=== PATIENT | female | born 1985 | race Two or more races ===

== ENCOUNTER 2016-07-26 02:02 | Emergency (ER) | payer MEDICAID, OTHER ==
[2016-07-26] MEDS ORDERED: Sodium Chloride 0.9% 1000 ML 1,000 ML IV STA ×2 (02:43→03:46)
[2016-07-26] MEDS ORDERED: PROTONIX 40 MG IV IV ONE ×2 (02:45→02:52)
[2016-07-26] MEDS ORDERED: Zofran 4 MG/2 ML VIAL IV ONE (02:45)
[2016-07-26 02:49] LABS: Mean Cell Volume 84.2 fl (78-100); Mean Corpuscular Hemoglobin 27.1 pg (26-32); Mean Platelet Volume 13.1 fl (6-9.5); Platelet Count 308 K/mm3 (150-450); Red Blood Count 4.68 M/mm3 (4.1-5.4); Red Cell Distribution Width 14.7 % (11.5-14.0); White Blood Count 13.4 K/mm3 (4.0-10.5)
--- NOTE | 2016-07-26 02:50 | ERPHSYRPT ---
- History of Present Illness Time Seen by Provider: 07/26/16 02:35 Historian: patient Exam Limitations: clinical condition Patient Subjective Stated Complaint: PT STS DIARRHEA X "AT LEAST A DOZEN" TODAY , STS TOOK 3 IMMODIUM WHICH STOPPED THE DIARRHEA. STS SHE THEN STARTED VOMITING , STS VOMITED X 3 TODAY. STS PAIN IN EPIGASTRIC AREA 3/10. DESCRIBES SQUEEZING PAIN. STS LAST FLUIDS 20 MIN [facility]PITAL [facility], LAST FOOD AT 1900. PT STS STILL FEELS NAUSEATED. Triage Nursing Assessment: PT ALERT, ORIENTED, ANSWERS ALL QUESTIONS APPROPRIATELY. SKIN P/W/D, RESPS NON-LABORED. PT AMBULATORY TO TX ROOM, STEADY GAIT NOTED. MUCOUS MEMBRANES MOIST. BOWEL SOUNDS PRESENT X 4 QUADRANTS. EPIGASTRIC TENDERNESS NOTED UPON PALPATION. ABD SOFT X 4 QUADRANTS. Physician History: PATIENT COMPLAINS OF FREQUENT EPISODES OF EMESIS X 4 AND WATERY DIARRHEA X 12 EPISODES THE PAST 24 HOURS ASSOCIATED WITH EPIGASTRIC PAIN. DENIES FEVER, URINARY SYMPTOMS. Timing/Duration: today Activities at Onset: none Quality: cramping Abdominal Pain Onset Location: epigastric Pain Radiation: no radiation Severity of Pain-Max: none Severity of Pain-Current: none Modifying Factors: Improves With: vomiting, other (DIARRHEA) Associated Symptoms: diarrhea, nausea, vomiting Previous symptoms: no prior history Allergies/Adverse Reactions: No Known Drug Allergies Allergy (Unverified 07/26/16 02:08) Hx Tetanus, Diphtheria Vaccination/Date Given: (UNKNOWN) Hx Influenza Vaccination/Date Given: No Hx Pneumococcal Vaccination/Date Given: No - Review of Systems Constitutional: No Fever, No Chills Eyes: No Symptoms Ears, Nose, & Throat: No Symptoms Respiratory: No Symptoms, No Cough, No Dyspnea Cardiac: No Symptoms, No Chest Pain, No Edema, No Syncope Abdominal/Gastrointestinal: Abdominal Pain, Nausea, Vomiting, Diarrhea Genitourinary Symptoms: No Symptoms, No Dysuria Musculoskeletal: No Symptoms, No Back Pain, No Neck Pain Skin: No Symptoms, No Rash Neurological: No Dizziness, No Focal Weakness, No Sensory Changes Psychological: No Symptoms Endocrine: No Symptoms All Other Systems: Reviewed and Negative - Past Medical History Pertinent Past Medical History: No - Past Surgical History Past Surgical History: Yes Gastrointestinal: Cholecystectomy - Social History Smoking Status: Former smoker Exposure to second hand smoke: No Drug Use: none Patient Lives Alone: No - Female History Hx Last Menstrual Period: 1 MONTH - Nursing Vital Signs Nursing Vital Signs: Initial Vital Signs Temperature 97.6 F Temperature Source Oral Pulse Rate 92 Respiratory Rate 14 Blood Pressure [Right Arm] 100/51 Pain Intensity 3 - Physical Exam General Appearance: no apparent distress, alert Eye Exam: PERRL/EOMI, eyes nml inspection Ears, Nose, Throat Exam: normal ENT inspection, pharynx normal, moist mucous membranes Neck Exam: normal inspection, non-tender, supple, full range of motion Respiratory Exam: normal breath sounds, lungs clear, No respiratory distress Cardiovascular Exam: regular rate/rhythm, normal heart sounds Gastrointestinal/Abdomen Exam: soft, normal bowel sounds, No tenderness, No mass Back Exam: normal inspection, normal range of motion, No CVA tenderness, No vertebral tenderness Extremity Exam: normal inspection, normal range of motion, pelvis stable Neurologic Exam: alert, oriented x 3, cooperative, normal mood/affect, nml cerebellar function, sensation nml, No motor deficits Skin Exam: normal color, warm, dry SpO2 Interpretation: normal SpO2: 98 Oxygen Delivery: Room Air Ordered Tests: Active Orders 24 hr Category Date Time Status AMYLASE Stat Lab 07/26/16 02:15 Completed BMP Stat Lab 07/26/16 02:15 Completed CBC W DIFF Stat Lab 07/26/16 02:15 Completed HCG,QUALITATIVE URINE Stat Lab 07/26/16 03:00 Completed LIPASE Stat Lab 07/26/16 02:15 Completed Manual Differential NC Stat Lab 07/26/16 02:15 Completed UA W/ MICROSCOPIC Stat Lab 07/26/16 03:00 Completed Medication Summary Discontinued Medications Generic Name Dose Route Start Last Admin Trade Name Tyreeq PRN Reason Stop Dose Admin Sodium Chloride 1,000 mls @ 999 mls/hr 07/26/16 02:43 07/26/16 02:56 Sodium Chloride 0.9% 1000 Ml IV 07/26/16 03:43 999 mls/hr .Q1H1M STA Administration Sodium Chloride Confirm 07/26/16 02:52 Sodium Chloride 0.9% 1000 Ml Administered 07/26/16 02:53 Dose 1,000 mls @ ud .ROUTE .STK-MED ONE Ceftriaxone Sodium/Dextrose 50 mls @ 100 mls/hr 07/26/16 03:46 07/26/16 03:53 Rocephin 1 Gm-D5w 50 Ml Bag IV 07/26/16 04:15 100 mls/hr STAT ONE Administration Sodium Chloride 1,000 mls @ 999 mls/hr 07/26/16 03:46 07/26/16 03:52 Sodium Chloride 0.9% 1000 Ml IV 07/26/16 04:46 999 mls/hr .Q1H1M STA Administration Sodium Chloride Confirm 07/26/16 03:51 Sodium Chloride 0.9% 1000 Ml Administered 07/26/16 03:52 Dose 1,000 mls @ ud .ROUTE .STK-MED ONE Ceftriaxone Sodium/Dextrose Confirm 07/26/16 03:51 Rocephin 1 Gm-D5w 50 Ml Bag Administered 07/26/16 03:52 Dose 50 mls @ ud IV .STK-MED ONE Ondansetron HCl 4 mg 07/26/16 02:45 07/26/16 02:55 Zofran 4 Mg/2 Ml Vial IV 07/26/16 02:46 4 mg STAT ONE Administration Ondansetron HCl Confirm 07/26/16 02:52 Zofran 4 Mg/2 Ml Vial Administered 07/26/16 02:53 Dose 4 mg .ROUTE .STK-MED ONE Pantoprazole Sodium 40 mg 07/26/16 02:45 07/26/16 02:55 Protonix 40 Mg Iv IV 07/26/16 02:46 40 mg STAT ONE Administration Pantoprazole Sodium Confirm 07/26/16 02:52 Protonix 40 Mg Iv Administered 07/26/16 02:53 Dose 40 mg IV .STK-MED ONE Lab/Rad Data: Laboratory Result Diagrams 07/26/16 02:15 07/26/16 02:15 Laboratory Results 07/26/16 07/26/16 07/26/16 Range/Units 03:00 03:00 02:15 WBC (4.0-10.5) K/mm3 RBC (4.1-5.4) M/mm3 Hgb (12.0-16.0) gm/dl Hct (35-47) % MCV (78-100) fl MCH (26-32) pg MCHC (32-36) g/dl RDW (11.5-14.0) % Plt Count (150-450) K/mm3 MPV (6-9.5) fl Segmented Neutrophils (36.0-66.0) % Lymphocytes (Manual) (24-44) % Monocytes (Manual) (0.0-12.0) % Differential Comment Platelet Estimate (NORMAL) Sodium 138 (136-145) mEq/L Potassium 4.1 (3.5-5.1) mEq/L Chloride 102 (98-107) mEq/L Carbon Dioxide 23.5 (21-32) mEq/L Anion Gap 16.2 H (5-15) MEQ/L BUN 14 (9-20) mg/dL Creatinine 0.89 (0.55-1.30) mg/dl Estimated GFR > 60 ML/MIN Glucose 133 H (70-110) MG/DL Calcium 8.6 (8.5-10.1) mg/dL Amylase 45 (25-115) U/L Lipase 164 (73-393) U/L Ur Collection Type CLEAN CATCH Urine Color EUSEBIO (YELLOW) Urine Appearance SLIGHTLY CLOUDY (CLEAR) Urine pH 8.5 (5-6) Ur Specific [place] 105 (1.005-1.025) Urine Protein 30 (Negative) Urine Glucose (UA) NEGATIVE (NEGATIVE) mg/dL Urine Ketones NEGATIVE (NEGATIVE) Urine Nitrite NEGATIVE (NEGATIVE) Urine Bilirubin NEGATIVE (NEGATIVE) Urine Urobilinogen 1 (0-1) mg/dL Urine WBC (Auto) MODERATE (NEGATIVE) Urine RBC (Auto) NEGATIVE (0-5) Xiang/ul Urine Microscopic WBC 5-10 (0-5) /HPF Ur Epithelial Cells FEW (FEW) /HPF Urine Bacteria FEW (NEGATIVE) /HPF Urine HCG, Qual NEGATIVE (Negative) Specimen Received 07/26/16:0300 07/26/16 Range/Units 02:15 WBC 13.4 H (4.0-10.5) K/mm3 RBC 4.68 (4.1-5.4) M/mm3 Hgb 12.7 (12.0-16.0) gm/dl Hct 39.4 (35-47) % MCV 84.2 (78-100) fl MCH 27.1 (26-32) pg MCHC 32.2 (32-36) g/dl RDW 14.7 H (11.5-14.0) % Plt Count 308 (150-450) K/mm3 MPV 13.1 H (6-9.5) fl Segmented Neutrophils 91 H (36.0-66.0) % Lymphocytes (Manual) 5 L (24-44) % Monocytes (Manual) 4 (0.0-12.0) % Differential Comment NORMAL Platelet Estimate NORMAL (NORMAL) Sodium (136-145) mEq/L Potassium (3.5-5.1) mEq/L Chloride (98-107) mEq/L Carbon Dioxide (21-32) mEq/L Anion Gap (5-15) MEQ/L BUN (9-20) mg/dL Creatinine (0.55-1.30) mg/dl Estimated GFR ML/MIN Glucose (70-110) MG/DL Calcium (8.5-10.1) mg/dL Amylase (25-115) U/L Lipase (73-393) U/L Ur Collection Type Urine Color (YELLOW) Urine Appearance (CLEAR) Urine pH (5-6) Ur Specific [place] (1.005-1.025) Urine Protein (Negative) Urine Glucose (UA) (NEGATIVE) mg/dL Urine Ketones (NEGATIVE) Urine Nitrite (NEGATIVE) Urine Bilirubin (NEGATIVE) Urine Urobilinogen (0-1) mg/dL Urine WBC (Auto) (NEGATIVE) Urine RBC (Auto) (0-5) Xiang/ul Urine Microscopic WBC (0-5) /HPF Ur Epithelial Cells (FEW) /HPF Urine Bacteria (NEGATIVE) /HPF Urine HCG, Qual (Negative) Specimen Received - Progress Progress: improved Progress Note: 07/26/16 02:48 PATIENT HYDRATED 2 LITERS OVER 2 HOURS. ZOFRAN 4MG, PROTONIX 40MG IV Counseled pt/family regarding: lab results, diagnosis, need for follow-up - Departure Time of Disposition: 05:10 Departure Disposition: Home Clinical Impression: ACUTE GASTROENTERITIS, URINARY TRACT INFECTION Condition: Stable Critical Care Time: No Referrals: FAN VAUGHAN [Primary Care Provider] - Additional Instructions: BEGIN CLEAR LIQUID DIET FOR 24 HOURS THEN ADVANCE DIET TOLERATED. ZOFRAN 4MG EVERY 4 HOURS FOR NAUSEA NEEDED. PEPCID 20MG TWICE DAILY FOR EPIGASTRIC PAIN FOR DURATION 2 WEEKS. ANTIBIOTIC BACTRIM DS TWICE DAILY FOR 10 DAYS. CONSULT YOUR FAMILY PHYSICIAN FOR EVALUATION IN 1 WEEK. Prescriptions: Ondansetron [Zofran Odt] 4 mg PO Q4HPRN PRN #6 tab.rapdis PRN Reason: Nausea Famotidine 20 mg [Pepcid 20 MG] 20 mg PO BID #30 tablet Sulfamethoxazole/Trimethoprim [Bactrim Ds Tablet] 1 each PO BID #20 tablet
[2016-07-26] MEDS ORDERED: Zofran 4 MG/2 ML VIAL ONE (02:52)
[2016-07-26] MEDS ORDERED: Sodium Chloride 0.9% 1000 ML 1,000 ML ONE ×2 (02:52→03:51)
[2016-07-26 02:54] LABS: ANION GAP 16.2 MEQ/L (5-15); BLOOD UREA NITROGEN 14 mg/dL (9-20); CHLORIDE 102 mEq/L (98-107); Carbon Dioxide 23.5 mEq/L (21-32); Glucose 133 MG/DL (70-110); LIPASE 164 U/L (73-393); Potassium 4.1 mEq/L (3.5-5.1); SODIUM 138 mEq/L (136-145)
[2016-07-26 03:13] LABS: Bacteria FEW /HPF (NEGATIVE); COMPLETE URINE MICROSCOPIC? YES; Collection Type CLEAN CATCH; Epithelial Cells FEW /HPF (FEW); Ph 8.5 (5-6)
[2016-07-26 03:39] LABS: Platelet Estimate NORMAL (NORMAL); Total Cells Counted 100
[2016-07-26] MEDS ORDERED: ROCEPHIN 1 Gm-D5w 50 ml Bag** 50 ML IV ONE ×2 (03:46→03:51)
[2016-07-26 04:52] VITALS: BP 98/53; PULSE 93
[2016-07-26 04:53] VITALS: O2SAT 98
== END 2016-07-26 05:10 | disposition home or self-care (01) ==
LOC: ED 02:02
DX: K52.9 Noninfective gastroenteritis and colitis, unspecified (principal); N39.0 Urinary tract infection, site not specified; R11.10 Vomiting, unspecified
CPT/HCPCS: 36000; 36415; 80048; 81000; 82150; 83690; 84703; 85025; 96360; 96361; 99283; J0696; J2405

== ENCOUNTER 2016-11-27 13:56 | Emergency (ER) | payer OTHER ==
[2016-11-27 14:05] VITALS: O2SAT 100
[2016-11-27] MEDS ORDERED: Sodium Chloride 0.9% 1000 ML 1,000 ML IV STA (14:10)
[2016-11-27] MEDS ORDERED: Sodium Chloride 0.9% 1000 ML 1,000 ML ONE (14:14)
[2016-11-27 14:42] LABS: BASOPHIL % 0.5 % (0.0-0.4); Lymphocytes % 27.2 % (24.0-44.0); Mean Cell Volume 86.5 fl (78-100); Mean Corpuscular Hemoglobin 27.7 pg (26-32); Mean Platelet Volume 12.2 fl (6-9.5); Monocytes % 7.3 % (0.0-12.0); Platelet Count 285 K/mm3 (150-450); Red Blood Count 4.44 M/mm3 (4.1-5.4); Red Cell Distribution Width 14.9 % (11.5-14.0)
[2016-11-27 14:59] LABS: INR 1.11 (0.8-3.0); PROTIME 12.4 SECONDS (9.95-12.35)
[2016-11-27] MEDS ORDERED: Zofran 4 MG/2 ML VIAL IV ONE (15:00)
[2016-11-27] MEDS ORDERED: PROTONIX 40 MG IV IV ONE ×2 (15:00→15:07)
[2016-11-27] MEDS ORDERED: GI COCKTAIL 60ML (Belladonn/Phenobarb/Lidoc PO ONE (15:00)
[2016-11-27 15:02] LABS: ANION GAP 12.9 MEQ/L (5-15); BLOOD UREA NITROGEN 12 mg/dL (9-20); CHLORIDE 107 mEq/L (98-107); Carbon Dioxide 25.2 mEq/L (21-32); Glucose 105 MG/DL (70-110); Potassium 3.6 mEq/L (3.5-5.1); SODIUM 142 mEq/L (136-145)
[2016-11-27] MEDS ORDERED: Zofran 4 MG/2 ML VIAL ONE (15:07)
[2016-11-27] MEDS ORDERED: XYLOCAINE HCl Viscous ONE (15:07)
--- NOTE | 2016-11-27 15:07 | ERPHSYRPT ---
- History of Present Illness Time Seen by Provider: 11/27/16 14:10 Patient Subjective Stated Complaint: cp since 0830 Triage Nursing Assessment: states mid sternal cp since 0830 while getting ready for work this morning. nausea and sob then. on arrival, denies n/v/d. no sob or diaphoresis. c/o mid cp nonradiating. states this morning had rt shoulder and neck pain. c/o pain with deep breath Physician History: PATIENT COMPLAINS OF NAUSEA, LOWER CHEST PAIN SINCE 9AM TODAY. HAS ASSOCIATED DIARRHEA X 2 EPISODES. DENIES FEVER,COUGH, DYSPNEA, ABDOMINAL OR FLANK PAIN. Timing/Duration: today Activities at Onset: none Quality: sharpness Abdominal Pain Onset Location: other (STERNAL AND EPIGASTRIC) Pain Radiation: no radiation Severity of Pain-Max: mild Severity of Pain-Current: none Modifying Factors: Improves With: other (DIARRHEA) Associated Symptoms: diarrhea, nausea Previous symptoms: no prior history Allergies/Adverse Reactions: No Known Drug Allergies Allergy (Unverified 11/27/16 14:05) Home Medications: Buspirone HCl [Buspar] 7.5 mg PO BID 11/27/16 [History] Hx Tetanus, Diphtheria Vaccination/Date Given: Yes Hx Influenza Vaccination/Date Given: No Hx Pneumococcal Vaccination/Date Given: No Immunizations Up to Date: Yes - Review of Systems Constitutional: No Fever, No Chills Eyes: No Symptoms Ears, Nose, & Throat: No Symptoms Respiratory: No Cough, No Dyspnea Cardiac: No Chest Pain, No Edema, No Syncope Abdominal/Gastrointestinal: No Abdominal Pain, No Nausea, No Vomiting, No Diarrhea Genitourinary Symptoms: No Symptoms, No Dysuria Musculoskeletal: No Symptoms, No Back Pain, No Neck Pain Skin: No Symptoms, No Rash Neurological: No Dizziness, No Focal Weakness, No Sensory Changes Psychological: No Symptoms Endocrine: No Symptoms All Other Systems: Reviewed and Negative - Past Medical History Pertinent Past Medical History: No - Past Surgical History Past Surgical History: Yes Gastrointestinal: Cholecystectomy - Social History Smoking Status: Current every day smoker Exposure to second hand smoke: No Drug Use: none Patient Lives Alone: No - Female History Hx Last Menstrual Period: 1 week - Nursing Vital Signs Nursing Vital Signs: Initial Vital Signs Temperature 98 F Temperature Source Oral Pulse Rate [] 96 Pulse Rate 83 Respiratory Rate 18 Blood Pressure [] 116/68 Pain Intensity 4 - Physical Exam General Appearance: no apparent distress, alert Eye Exam: PERRL/EOMI, eyes nml inspection Ears, Nose, Throat Exam: normal ENT inspection, pharynx normal, moist mucous membranes Neck Exam: normal inspection, non-tender, supple, full range of motion Respiratory Exam: normal breath sounds, chest tenderness (PERISTERNAL TENDERNESS T-5 TO T-6), lungs clear, No respiratory distress Cardiovascular Exam: regular rate/rhythm, normal heart sounds Gastrointestinal/Abdomen Exam: soft, normal bowel sounds, No tenderness ( MINIMAL SUPERIOR EPIGASTRIC TENDERNESS ADJACENT TO XYPHOID PROCESS), No mass Back Exam: normal inspection, normal range of motion, No CVA tenderness, No vertebral tenderness Extremity Exam: normal inspection, normal range of motion, pelvis stable Neurologic Exam: alert, oriented x 3, cooperative, normal mood/affect, nml cerebellar function, sensation nml, No motor deficits Skin Exam: normal color, warm, dry SpO2 Interpretation: normal SpO2: 100 Oxygen Delivery: Room Air - Course Nursing assessment & vital signs reviewed: Yes EKG Interpreted by Me: RATE, Sinus Rhythm - Radiology Exams Chest X-ray Interpretation: Interpreted by me, Negative Ordered Tests: Active Orders 24 hr Category Date Time Status EKG-ER Only STAT Care 11/27/16 14:10 Active Oxygen-ED Only NASAL CANNULA 2 lpm Care 11/27/16 14:10 Active CHEST 1 VIEW (PORTABLE) Stat Exams 11/27/16 14:10 Taken AMYLASE Stat Lab 11/27/16 15:00 Completed BMP Stat Lab 11/27/16 14:35 Completed CBC W DIFF Stat Lab 11/27/16 14:35 Completed D-DIMER QUANTITATION Stat Lab 11/27/16 14:35 Completed HCG,QUALITATIVE URINE Stat Lab 11/27/16 14:35 Completed LIPASE Stat Lab 11/27/16 15:00 Completed PROTIME WITH INR Stat Lab 11/27/16 14:35 Completed TROPONIN Q3H Lab 11/27/16 14:40 Completed TROPONIN Q3H Lab 11/27/16 17:15 Ordered TROPONIN Q3H Lab 11/27/16 20:15 Ordered TROPONIN Q3H Lab 11/27/16 23:15 Ordered TROPONIN Q3H Lab 11/28/16 02:15 Ordered Urine Triage Profile Stat Lab 11/27/16 14:35 Completed Medication Summary Discontinued Medications Generic Name Dose Route Start Last Admin Trade Name Freq PRN Reason Stop Dose Admin Al Hydrox/Mg Hydrox/Simethicone Confirm 11/27/16 15:08 Maalox Es 30 Ml Unit Dose Administered 11/27/16 15:09 Dose 30 ml .ROUTE .STK-MED ONE Belladonna Alkaloids/Phenobarbital 60 ml 11/27/16 15:00 11/27/16 15:12 Gi Cocktail 60ml (Belladonn/Phenobarb/Lidoc* PO 11/27/16 15:01 60 ml STAT ONE Administration Belladonna Alkaloids/Phenobarbital Confirm 11/27/16 15:08 Donnatol Liquid Administered 11/27/16 15:09 Dose 64.8 mg .ROUTE .STK-MED ONE Sodium Chloride 1,000 mls @ 999 mls/hr 11/27/16 14:10 11/27/16 14:15 Sodium Chloride 0.9% 1000 Ml IV 11/27/16 15:10 999 mls/hr .Q1H1M STA Administration Sodium Chloride Confirm 11/27/16 14:14 Sodium Chloride 0.9% 1000 Ml Administered 11/27/16 14:15 Dose 1,000 mls @ ud .ROUTE .STK-MED ONE Lidocaine HCl Confirm 11/27/16 15:07 Xylocaine Hcl Viscous * Administered 11/27/16 15:08 Dose 20 ml .ROUTE .STK-MED ONE Ondansetron HCl 4 mg 11/27/16 15:00 11/27/16 15:12 Zofran 4 Mg/2 Ml Vial IV 11/27/16 15:01 4 mg STAT ONE Administration Ondansetron HCl Confirm 11/27/16 15:07 Zofran 4 Mg/2 Ml Vial Administered 11/27/16 15:08 Dose 4 mg .ROUTE .STK-MED ONE Pantoprazole Sodium 40 mg 11/27/16 15:00 11/27/16 15:12 Protonix 40 Mg Iv IV 11/27/16 15:01 40 mg STAT ONE Administration Pantoprazole Sodium Confirm 11/27/16 15:07 Protonix 40 Mg Iv Administered 11/27/16 15:08 Dose 40 mg IV .STK-MED ONE Lab/Rad Data: Laboratory Result Diagrams 11/27/16 14:35 11/27/16 14:35 Laboratory Results 11/27/16 11/27/1611/27/17 Range/Units 15:00 14:40 14:35 WBC (4.0-10.5) K/mm3 RBC (4.1-5.4) M/mm3 Hgb (12.0-16.0) gm/dl Hct (35-47) % MCV (78-100) fl MCH (26-32) pg MCHC (32-36) g/dl RDW (11.5-14.0) % Plt Count (150-450) K/mm3 MPV (6-9.5) fl Gran % (36.0-66.0) % Lymphocytes % (24.0-44.0) % Monocytes % (0.0-12.0) % Eosinophils % (0.00-5.0) % Basophils % (0.0-0.4) % Basophils # (0-0.4) INR (0.8-3.0) D-Dimer (0.00-500.00) ng/mL Sodium (136-145) mEq/L Potassium (3.5-5.1) mEq/L Chloride (98-107) mEq/L Carbon Dioxide (21-32) mEq/L Anion Gap (5-15) MEQ/L BUN (9-20) mg/dL Creatinine (0.55-1.30) mg/dl Estimated GFR ML/MIN Glucose (70-110) MG/DL Calcium (8.5-10.1) mg/dL Troponin I < 0.017 (0.000-0.056) ng/ml Amylase 66 (25-115) U/L Lipase 285 (73-393) U/L Urine HCG, Qual NEGATIVE (Negative) Urine Opiates Level (NEGATIVE) Ur Methadone (NEGATIVE) Urine Barbiturates (NEGATIVE) Ur Phencyclidine (PCP) (NEGATIVE) Urine Amphetamine (NEGATIVE) U Benzodiazepine Level (NEGATIVE) Urine Cocaine (NEGATIVE) Urine Marijuana (THC) (NEGATIVE) 11/27/16 11/27/16 11/27/16 Range/Units 14:35 14:35 14:35 WBC 8.0 (4.0-10.5) K/mm3 RBC 4.44 (4.1-5.4) M/mm3 Hgb 12.3 (12.0-16.0) gm/dl Hct 38.4 (35-47) % MCV 86.5 (78-100) fl MCH 27.7 (26-32) pg MCHC 32.0 (32-36) g/dl RDW 14.9 H (11.5-14.0) % Plt Count 285 (150-450) K/mm3 MPV 12.2 H (6-9.5) fl Gran % 62.0 (36.0-66.0) % Lymphocytes % 27.2 (24.0-44.0) % Monocytes % 7.3 (0.0-12.0) % Eosinophils % 3.0 (0.00-5.0) % Basophils % 0.5 (0.0-0.4) % Basophils # 0.04 (0-0.4) INR 1.11 (0.8-3.0) D-Dimer 403.46 (0.00-500.00) ng/mL Sodium 142 (136-145) mEq/L Potassium 3.6 (3.5-5.1) mEq/L Chloride 107 (98-107) mEq/L Carbon Dioxide 25.2 (21-32) mEq/L Anion Gap 12.9 (5-15) MEQ/L BUN 12 (9-20) mg/dL Creatinine 0.91 (0.55-1.30) mg/dl Estimated GFR > 60 ML/MIN Glucose 105 (70-110) MG/DL Calcium 9.0 (8.5-10.1) mg/dL Troponin I (0.000-0.056) ng/ml Amylase (25-115) U/L Lipase (73-393) U/L Urine HCG, Qual (Negative) Urine Opiates Level (NEGATIVE) Ur Methadone (NEGATIVE) Urine Barbiturates (NEGATIVE) Ur Phencyclidine (PCP) (NEGATIVE) Urine Amphetamine (NEGATIVE) U Benzodiazepine Level (NEGATIVE) Urine Cocaine (NEGATIVE) Urine Marijuana (THC) (NEGATIVE) 11/27/16 Range/Units 14:35 WBC (4.0-10.5) K/mm3 RBC (4.1-5.4) M/mm3 Hgb (12.0-16.0) gm/dl Hct (35-47) % MCV (78-100) fl MCH (26-32) pg MCHC (32-36) g/dl RDW (11.5-14.0) % Plt Count (150-450) K/mm3 MPV (6-9.5) fl Gran % (36.0-66.0) % Lymphocytes % (24.0-44.0) % Monocytes % (0.0-12.0) % Eosinophils % (0.00-5.0) % Basophils % (0.0-0.4) % Basophils # (0-0.4) INR (0.8-3.0) D-Dimer (0.00-500.00) ng/mL Sodium (136-145) mEq/L Potassium (3.5-5.1) mEq/L Chloride (98-107) mEq/L Carbon Dioxide (21-32) mEq/L Anion Gap (5-15) MEQ/L BUN (9-20) mg/dL Creatinine (0.55-1.30) mg/dl Estimated GFR ML/MIN Glucose (70-110) MG/DL Calcium (8.5-10.1) mg/dL Troponin I (0.000-0.056) ng/ml Amylase (25-115) U/L Lipase (73-393) U/L Urine HCG, Qual (Negative) Urine Opiates Level NEG. (NEGATIVE) Ur Methadone NEG. (NEGATIVE) Urine Barbiturates NEG. (NEGATIVE) Ur Phencyclidine (PCP) NEG. (NEGATIVE) Urine Amphetamine NEG. (NEGATIVE) U Benzodiazepine Level NEG. (NEGATIVE) Urine Cocaine NEG. (NEGATIVE) Urine Marijuana (THC) NEG. (NEGATIVE) - Progress Progress: pain not gone completely Progress Note: 11/27/16 17:24 PATIENT ADMINISTERED IV NORMAL SALINE 1 LITER BOLUS, ZOFRAN 4MG, PROTONIX 40MG, TORADOL 30MG IV Counseled pt/family regarding: lab results, diagnosis, need for follow-up, rad results - Departure Time of Disposition: 17:25 Departure Disposition: Home Clinical Impression: ACUTE ABDOMINAL PAIN, ACUTE CHEST WALL PAIN Condition: Stable Critical Care Time: No Referrals: FAN VAUGHAN [Primary Care Provider] - Additional Instructions: TAKE OVER THE COUNTER IMODIUM EVERY 4 HOURS NEEDED FOR DIARRHEA FOR NO MORE THAN 48 HOURS. PEPCID 20MG TWICE DAILY FOR 30 DAYS. TORADOL 10MG EVERY 6 HOURS FOR PAIN NEEDED. CONSULT YOUR FAMILY PHYSICIAN FOR EVALUATION IN 1 WEEK. Prescriptions: Ketorolac Tromethamine [Toradol] 10 mg PO Q6H PRN PRN #20 tablet PRN Reason: Pain Famotidine 20 mg [Pepcid 20 MG] 20 mg PO BID #60 tablet
[2016-11-27] MEDS ORDERED: MAALOX ES 30 ML UNIT DOSE ONE (15:08)
[2016-11-27] MEDS ORDERED: Donnatol Liquid ONE (15:08)
[2016-11-27 15:14] LABS: LIPASE 285 U/L (73-393)
[2016-11-27 17:42] VITALS: BP 116/70; PULSE 76
--- NOTE | 2016-11-27 18:58 | XRAY ---
Indication: Chest pain. Comparison: None Portable chest demonstrates right middle lobe infiltrate versus atelectasis. Remaining heart, lungs, and bony thorax normal. Comment: Preliminary report by the ordering clinician does not report right middle lobe finding. I gave telephone report to Dr. Pitt in the ER at 1855 hrs. on November 27, 2016.
== END 2016-11-27 17:42 | disposition home or self-care (01) ==
LOC: ED 13:56
DX: R10.9 Unspecified abdominal pain (principal); R07.89 Other chest pain; R19.7 Diarrhea, unspecified; R11.0 Nausea
CPT/HCPCS: 36415; 71010; 80048; 80307; 82150; 83690; 84484; 84703; 85025; 85379; 85610; 93005; 96360; 96374; 96375; 99284; J2405; A9270-GY

== ENCOUNTER 2018-02-18 10:17 | Emergency (ER) | payer OTHER ==
[2018-02-18 10:39] VITALS: O2SAT 99
[2018-02-18] MEDS ORDERED: Cyclobenzaprine 10 MG PO ONE (10:58)
[2018-02-18] MEDS ORDERED: TORAdol 30 mg Injection IM ONE (10:58)
--- NOTE | 2018-02-18 11:10 | ERPHSYRPT ---
- History of Present Illness Time Seen by Provider: 02/18/18 10:45 Source: patient Exam Limitations: no limitations Patient Subjective Stated Complaint: Back Pain for 24 hours. Started as whole back. for the last 24 hours just the lower right back is hurting. Triage Nursing Assessment: pt presented alert and oriented X 3, skin pwd. PT ambulates with an upright steady gait, able to speak in clear full sentences. 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 Pt describes the pain as sharp, constant, 9/10, worse with movement and pt has not taken any pain meds. Pt denies any leg weakness or urinary/bowel incontinence. Timing/Duration: yesterday Method of Injury: unknown Quality: sharp Back Pain Location: lumbar spine Severity of Pain-Max: severe Severity of Pain-Current: severe Modifying Factors: Improves With: nothing Associated Symptoms: muscle spasms Previous symptoms: no prior history Allergies/Adverse Reactions: No Known Drug Allergies Allergy (Verified 02/18/18 10:35) Home Medications: Buspirone HCl [Buspar] 7.5 mg PO DAILY PRN PRN 11/27/16 [History] Hx Tetanus, Diphtheria Vaccination/Date Given: No Hx Influenza Vaccination/Date Given: No Hx Pneumococcal Vaccination/Date Given: No Immunizations Up to Date: Yes - Review of Systems Constitutional: No Fever, No Chills Eyes: No Symptoms Ears, Nose, & Throat: No Symptoms Respiratory: No Cough, No Dyspnea Cardiac: No Chest Pain, No Edema, No Syncope Abdominal/Gastrointestinal: No Abdominal Pain, No Nausea, No Vomiting, No Diarrhea Genitourinary Symptoms: No Dysuria Musculoskeletal: Back Pain, No Neck Pain Skin: No Rash Neurological: No Dizziness, No Focal Weakness, No Gait Changes, No Parasthesia, No Sensory Changes Psychological: No Symptoms Endocrine: No Symptoms All Other Systems: Reviewed and Negative - Past Medical History Pertinent Past Medical History: No - Past Surgical History Past Surgical History: Yes Gastrointestinal: Cholecystectomy - Social History Smoking Status: Current every day smoker How long have you smoked: 11 years Exposure to second hand smoke: Yes Drug Use: none Patient Lives Alone: Yes - Female History Hx Last Menstrual Period: 02/04/18 Hx Now: No - Nursing Vital Signs Nursing Vital Signs: Initial Vital Signs Temperature 98.2 F 02/18/18 10:23 Pulse Rate 101 H 02/18/18 10:23 Respiratory Rate 20 02/18/18 10:23 Blood Pressure 138/76 02/18/18 10:23 O2 Sat by Pulse Oximetry 99 02/18/18 10:23 Pain Scale Pain Intensity [Right Lower 7 Back] Pain Intensity 9 - Physical Exam General Appearance: no apparent distress, alert Eye Exam: PERRL/EOMI, eyes nml inspection Neck Exam: normal inspection, non-tender, supple, full range of motion, No meningismus, No midline tenderness Respiratory Exam: normal breath sounds, lungs clear, No respiratory distress Cardiovascular Exam: regular rate/rhythm, normal heart sounds Gastrointestinal Exam: soft, No tenderness, No mass Back Exam: decreased range of motion, muscle spasm Extremity Exam: normal inspection, normal range of motion, No calf tenderness, No pedal edema Neurologic Exam: alert, oriented x 3, cooperative, 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, normal mood/affect, nml station & gait, sensation nml, No motor deficits Skin Exam: normal color, warm, dry, No rash SpO2: 99 Oxygen Delivery: Room Air - Course Nursing assessment & vital signs reviewed: Yes Ordered Tests: Medication Summary Discontinued Medications Generic Name Dose Route Start Last Admin Trade Name Freq PRN Reason Stop Dose Admin Cyclobenzaprine HCl 10 mg 02/18/18 10:58 02/18/18 11:12 Cyclobenzaprine 10 Mg PO 02/18/18 10:59 10 mg STAT ONE Administration Cyclobenzaprine HCl Confirm 02/18/18 11:11 Cyclobenzaprine 10 Mg Administered 02/18/18 11:12 Dose 10 mg .ROUTE .STK-MED ONE Ketorolac Tromethamine 60 mg 02/18/18 10:58 02/18/18 11:13 Toradol 30 Mg Injection IM 02/18/18 10:59 60 mg STAT ONE Administration Ketorolac Tromethamine Confirm 02/18/18 11:11 Toradol 30 Mg Injection Administered 02/18/18 11:12 Dose 60 mg .ROUTE .STK-MED ONE - Progress Progress: improved Progress Note: 02/18/18 11:09 Pt will receive toradol and flexeril for back spasm. Pt will be d/c home on toradol and flexeril. - Departure Time of Disposition: 11:10 Departure Disposition: Home Clinical Impression: Back muscle spasm Condition: Stable Critical Care Time: No Referrals: DOCTOR,NO FAMILY [Primary Care Provider] - Instructions: Low Back Pain (DC) Additional Instructions: Return to the ER if you should have worsening back pain, leg weakness, or loss of control of urine and bowels. Prescriptions: Cyclobenzaprine HCl [Flexeril] 10 mg PO QID PRN #20 tablet PRN Reason: Muscle Spasms Ketorolac Tromethamine [Toradol] 10 mg PO QID PRN #20 tablet PRN Reason: Pain
[2018-02-18] MEDS ORDERED: Cyclobenzaprine 10 MG ONE (11:11)
[2018-02-18] MEDS ORDERED: TORAdol 30 mg Injection ONE (11:11)
[2018-02-18 11:19] VITALS: BP 133/77; PULSE 70
== END 2018-02-18 11:35 | disposition home or self-care (01) ==
LOC: ED 10:17
DX: M62.830 Muscle spasm of back (principal); M54.5 Low back pain
CPT/HCPCS: 96372; 99283; J1885; A9270-GY

== ENCOUNTER → 2021-07-02 | Emergency (ER) | payer OTHER ==
[~2021-07-02] MED LIST: MAALOX ES 30 ML UNIT DOSE ONE; MAALOX ES 30 ML UNIT DOSE PO ONE; MILK OF MAGNESIA 30 ML ONE; Protonix 40MG Tablet ONE; Protonix 40MG Tablet PO ONE; XYLOCAINE HCl Viscous ONE; XYLOCAINE VISCOUS 2% 20 ML CUP PO ONE; ZOFRAN ODT 4 MG ONE; ZOFRAN ODT 4 MG PO ONE
[2021-07-02 02:14] LABS: BLOOD UREA NITROGEN 12 mg/dL (7-17); CHLORIDE 102 mmol/L (98-107); Carbon Dioxide 26 mmol/L (22-30); Creatinine 1 0.69 mg/dL (0.52-1.04); EST GLOMERULAR FILTRATION RATE > 60.0 ML/MIN; Glucose 116 mg/dL (74-106); Potassium 3.9 mmol/L (3.5-5.1); SODIUM 137 mmol/L (137-145)
[2021-07-02 02:15] LABS: ALBUMIN 4.2 g/dL (3.5-5.0); ALKALINE PHOSPHATASE 70 U/L (38-126); AMYLASE 66 U/L (30-110); Calcium 9.3 mg/dL (8.4-10.2); LIPASE 79 U/L (23-300); SGOT/AST 19 U/L (14-36); SGPT/ALT 25 U/L (0-35); Total Protein 7.2 g/dL (6.3-8.2)
[2021-07-02 02:16] LABS: ANION GAP 12.9 MEQ/L (5-15); Absolute Neutrophil Ct (ANC) 9.05 (1.4-6.9); Basophil (Absolute #) 0.03 (0-0.4); Eosinophil % 2.5 % (0.00-5.0); Hematocrit 39.5 % (35-47); Hemoglobin 12.7 gm/dl (12.0-16.0); Lymphocyte (Absolute #) 2.19 (1.0-4.6); Lymphocytes % 17.9 % (24.0-44.0); Mean Cell Volume 90.6 fl (78-100); Mean Corpuscular Hemoglobin 29.1 pg (26-32); Mean Corpuscular Hgb Concent. 32.2 g/dl (32-36); Monocyte (Absolute #) 0.65 (0.0-1.3); Monocytes % 5.3 % (0.0-12.0); Neutrophil % 74.1 % (36.0-66.0); Platelet Count 320 K/mm3 (150-450); Red Blood Count 4.36 M/mm3 (4.1-5.4); Red Cell Distribution Width 14.2 % (11.5-14.0); White Blood Count 12.2 K/mm3 (4.0-10.5)
[2021-07-02 02:26] LABS: Appearance SLIGHTLY CLOUDY (CLEAR); Bilirubin NEGATIVE (NEGATIVE); Blood NEGATIVE Ery/ul (0-5); Epithelial Cells RARE /HPF (FEW); Glucose NEGATIVE (NEGATIVE); Ketones TRACE (NEGATIVE); Leukocyte Esterase TRACE (NEGATIVE); Mucus SLIGHT /HPF (NEGATIVE); Nitrite NEGATIVE (NEGATIVE); Protein,Urine Dip NEGATIVE (Negative); RBC 0-2 /HPF (0-2); Specific Gravity 1.026 (1.005-1.025); Urobilinogen NEGATIVE mg/dL (0-1); WBC 0-2 /HPF (0-5)
--- NOTE | 2021-07-02 09:10 | XRAY ---
Indication: Abdomen pain, nausea, vomiting, and diarrhea. History renal stones. Multiple contiguous axial images obtained through the abdomen and pelvis without contrast using renal stone protocol. Comparison: August 04, 2010. Lung bases demonstrates minimal subsegmental atelectasis/scarring. No infiltrate or effusion. Heart not enlarged. Left upper kidney demonstrates new nonobstructing punctate calculus. No other renal calculus or evidence for obstructive uropathy in either system. Noncontrasted stomach and bowel loops appear nonobstructed with normal appendix. 3.2 cm left ovary cyst. No free fluid/air. Fatty hepatomegaly measuring 21 cm. There has been interval cholecystectomy. Remaining liver, pancreas, spleen, adrenal glands, kidneys, ureters, bladder, uterus, and aorta are unremarkable for noncontrast exam. Osseous structures intact. No ventral or inguinal hernias. Impression: 1. New nonobstructing left renal punctate calculus. 2. 3.2 cm left ovary cyst better evaluated with pelvic sonogram if clinically warranted. 3. Incidental fatty hepatomegaly. Comment: Preliminary interpretation made by [facility]. No critical discrepancy.
== END ==
LOC: ED 01:15
DX: R10.84 Generalized abdominal pain (principal); R11.2 Nausea with vomiting, unspecified; R19.7 Diarrhea, unspecified; Z72.0 Tobacco use
CPT/HCPCS: 36415; 74176; 80053; 81001; 82150; 83690; 84703; 85025; 99283; Q0162; A9270-GY

== ENCOUNTER 2023-10-17 19:28 | Observation (INO) | payer OTHER ==
[2023-10-17] MEDS ORDERED: Sodium Chloride 0.9% 1000 ML 1,000 ML ONE (20:01)
--- NOTE | 2023-10-17 20:02 | ERPHSYRPT ---
- History of Present Illness Time Seen by Provider: 10/17/23 19:59 Physician History: 38-year-old female presents to our ED for evaluation of dizziness. Dizziness started at approximately 6 PM. Dizziness was constant. No trauma no fever. Not associated with head motion. No associated chest pain or shortness of breat h. Patient denies a history of dizziness. Patient voices no other complaints or concerns at this time. Portions of this note were created with voice recognition technology. There may be grammatical, spelling, punctuation or sound alike errors Timing/Duration: today Severity: moderate Modifying Factors: Improves With: nothing Associated Symptoms: denies symptoms Allergies/Adverse Reactions: paroxetine [From Paxil] Allergy (Verified 10/17/23 19:51) Home Medications: No Reportable Medications [No Reported Medications] 10/17/23 [History] Hx Tetanus, Diphtheria Vaccination/Date Given: No Hx Influenza Vaccination/Date Given: No Hx Pneumococcal Vaccination/Date Given: No - Review of Systems Constitutional: No Symptoms, No Fever, No Chills Eyes: No Symptoms Ears, Nose, & Throat: No Symptoms Respiratory: No Symptoms, No Cough, No Dyspnea Cardiac: No Symptoms, No Chest Pain, No Edema, No Syncope Abdominal/Gastrointestinal: No Symptoms, No Abdominal Pain, No Nausea, No Vomiting, No Diarrhea Genitourinary Symptoms: No Symptoms, No Dysuria Musculoskeletal: No Symptoms, No Back Pain, No Neck Pain Skin: No Symptoms, No Rash Neurological: No Symptoms, No Dizziness, No Focal Weakness, No Sensory Changes Psychological: No Symptoms Endocrine: No Symptoms Hematologic/Lymphatic: No Symptoms Immunological/Allergic: No Symptoms All Other Systems: Reviewed and Negative - Past Medical History Pertinent Past Medical History: No - Past Surgical History Past Surgical History: Yes Gastrointestinal: Cholecystectomy - Female History Hx Now: No - Social History Smoking Status: Current every day smoker How long have you smoked: 11 years Exposure to second hand smoke: Yes Drug Use: none Patient Lives Alone: Yes - Nursing Vital Signs Nursing Vital Signs: Initial Vital Signs Temperature 97.2 F 10/17/23 19:54 Pulse Rate 85 10/17/23 19:54 Respiratory Rate 18 10/17/23 19:54 Blood Pressure 128/97 10/17/23 19:54 O2 Sat by Pulse Oximetry 99 10/17/23 19:54 Pain Scale Pain Intensity 0 - Physical Exam General Appearance: no apparent distress, alert Eye Exam: PERRL/EOMI, eyes nml inspection Ears, Nose, Throat Exam: normal ENT inspection, TMs normal, pharynx normal, moist mucous membranes Neck Exam: normal inspection, non-tender, supple, full range of motion Respiratory Exam: normal breath sounds, lungs clear, airway intact, No respiratory distress Cardiovascular Exam: regular rate/rhythm, normal heart sounds, normal peripheral pulses Gastrointestinal/Abdomen Exam: soft, normal bowel sounds, No tenderness, No mass Back Exam: normal inspection, normal range of motion, No CVA tenderness, No vertebral tenderness Extremity Exam: normal inspection, normal range of motion, pelvis stable Neurologic Exam: alert, oriented x 3, cooperative, normal mood/affect, nml cerebellar function, nml station & gait, sensation nml, No motor deficits Skin Exam: normal color, warm, dry, No rash Lymphatic Exam: No adenopathy SpO2 Interpretation: normal SpO2: 98 O2 Delivery: Room Air - Course Nursing assessment & vital signs reviewed: Yes EKG Interpreted by Me: RATE (88), Sinus Rhythm, NORMAL AXIS, NORMAL INTERVALS - CT Exams Head CT Interpretation: Tele-radiologist Report (Normal head) Ordered Tests: Active Orders 24 hr Category Date Time Status Circular [place]yer Stone STAT Care 10/17/23 19:58 Active EKG-ER Only STAT Care 10/17/23 19:57 Active IV Insertion STAT Care 10/17/23 19:57 Active Pulse Oximetry (ED) STAT Care 10/17/23 19:57 Active HEAD WITHOUT CONTRAST [CT] Stat Exams 10/17/23 19:58 Taken CBC W DIFF Stat Lab 10/17/23 20:06 Completed CMP Stat Lab 10/17/23 20:06 Completed CULTURE,URINE Stat Lab 10/17/23 20:06 Received HCG QUALITATIVE, SERUM Stat Lab 10/17/23 20:06 Completed TROPONIN Q4H Lab 10/17/23 20:06 Completed UA W/RFX UR CULTURE Stat Lab 10/17/23 20:06 Completed Transfer Order Routine Transfer 10/18/23 Ordered Medication Summary Generic Name Dose Route Start Last Admin Trade Name Freq PRN Reason Stop Dose Admin Sodium Chloride 1,000 mls @ 100 mls/hr 10/17/23 20:00 10/17/23 20:04 Sodium Chloride 0.9% 1000 Ml IV 11/16/23 19:59 100 mls/hr .Q10H COLEEN Administration Lab/Rad Data: Laboratory Result Diagrams 10/17/23 20:06 10/17/23 20:06 Laboratory Results 10/17/23 10/17/23 10/17/23 Range/Units 20:06 20:06 20:06 WBC (4.0-10.5) x10^3/uL RBC (4.1-5.4) x10^6/uL Hgb (12.0-16.0) g/dL Hct (35-47) % MCV (78-100) fL MCH (26-32) pg MCHC (32-36) g/dL RDW (11.5-14.0) % Plt Count (150-450) x10^3/uL MPV (7.5-11.0) fL Gran % (36.0-66.0) % Immature Gran % (Auto) (0.00-0.4) % Nucleat RBC Rel Count (0.00-0.1) % Eos # (Auto) (0-0.5) x10^3/uL Immature Gran # (Auto) (0.00-0.03) x10^3u/L Absolute Lymphs (auto) (1.0-4.6) x10^3/uL Absolute Monos (auto) (0.0-1.3) x10^3/uL Absolute Nucleated RBC (0.00-0.01) x10^3u/L Lymphocytes % (24.0-44.0) % Monocytes % (0.0-12.0) % Eosinophils % (0.00-5.0) % Basophils % (0.0-0.4) % Absolute Granulocytes (1.4-6.9) x10^3/uL Basophils # (0-0.4) x10^3/uL Sodium 142 (135-145) mmol/L Potassium 4.1 (3.5-5.1) mmol/L Chloride 106 (98-107) mmol/L Carbon Dioxide 26 (22-30) mmol/L Anion Gap 13.9 (5-15) MEQ/L BUN 12 (7-17) mg/dL Creatinine 0.66 (0.52-1.04) mg/dL Estimated GFR 116.5 ML/MIN Glucose 95 (74-106) mg/dL Calcium 9.3 (8.4-10.2) mg/dL Total Bilirubin 0.60 (0.2-1.3) mg/dL AST 40 H (14-36) U/L ALT 42 H (0-35) U/L Alkaline Phosphatase 48 (38-126) U/L Troponin I < 0.012 (0.000-0.033) ng/mL Serum Total Protein 7.9 (6.3-8.2) g/dL Albumin 4.2 (3.5-5.0) g/dL Serum HCG, Qual NEGATIVE (NEGATIVE) Urine Color (Yellow) Urine Appearance (Clear) Urine pH (4.6-8.0) Ur Specific Dolores (1.005-1.030) Urine Protein (Negative) Urine Glucose (UA) (Negative) mg/dL Urine Ketones (Negative) Urine Blood (Negative) Urine Nitrite (Negative) Urine Bilirubin (Negative) Urine Urobilinogen (0.2) mg/dL Ur Leukocyte Esterase (Negative) U Hyaline Cast (Auto) (0-2) /LPF Urine Microscopic RBC (0-5) /HPF Urine Microscopic WBC (0-5) /HPF Ur Epithelial Cells (None Seen) /HPF Urine Bacteria (None Seen) /HPF Urine Culture Reflexed (NO) 10/17/23 10/17/23 Range/Units 20:06 20:06 WBC 13.5 H (4.0-10.5) x10^3/uL RBC 4.42 (4.1-5.4) x10^6/uL Hgb 12.6 (12.0-16.0) g/dL Hct 38.4 (35-47) % MCV 86.9 (78-100) fL MCH 28.5 (26-32) pg MCHC 32.8 (32-36) g/dL RDW 13.7 (11.5-14.0) % Plt Count 363 (150-450) x10^3/uL MPV 11.7 H (7.5-11.0) fL Gran % 66.0 (36.0-66.0) % Immature Gran % (Auto) 0.4 (0.00-0.4) % Nucleat RBC Rel Count 0.0 (0.00-0.1) % Eos # (Auto) 0.37 (0-0.5) x10^3/uL Immature Gran # (Auto) 0.05 H (0.00-0.03) x10^3u/L Absolute Lymphs (auto) 3.33 (1.0-4.6) x10^3/uL Absolute Monos (auto) 0.75 (0.0-1.3) x10^3/uL Absolute Nucleated RBC 0.00 (0.00-0.01) x10^3u/L Lymphocytes % 24.7 (24.0-44.0) % Monocytes % 5.6 (0.0-12.0) % Eosinophils % 2.7 (0.00-5.0) % Basophils % 0.6 (0.0-0.4) % Absolute Granulocytes 8.92 H (1.4-6.9) x10^3/uL Basophils # 0.08 (0-0.4) x10^3/uL Sodium (135-145) mmol/L Potassium (3.5-5.1) mmol/L Chloride (98-107) mmol/L Carbon Dioxide (22-30) mmol/L Anion Gap (5-15) MEQ/L BUN (7-17) mg/dL Creatinine (0.52-1.04) mg/dL Estimated GFR ML/MIN Glucose (74-106) mg/dL Calcium (8.4-10.2) mg/dL Total Bilirubin (0.2-1.3) mg/dL AST (14-36) U/L ALT (0-35) U/L Alkaline Phosphatase (38-126) U/L Troponin I (0.000-0.033) ng/mL Serum Total Protein (6.3-8.2) g/dL Albumin (3.5-5.0) g/dL Serum HCG, Qual (NEGATIVE) Urine Color Yellow (Yellow) Urine Appearance Cloudy A (Clear) Urine pH 7.5 (4.6-8.0) Ur Specific Dolores 1.010 (1.005-1.030) Urine Protein Negative (Negative) Urine Glucose (UA) Negative (Negative) mg/dL Urine Ketones Negative (Negative) Urine Blood Moderate A (Negative) Urine Nitrite Negative (Negative) Urine Bilirubin Negative (Negative) Urine Urobilinogen 0.2 (0.2) mg/dL Ur Leukocyte Esterase Small A (Negative) U Hyaline Cast (Auto) NONE SEEN (0-2) /LPF Urine Microscopic RBC 3-5 (0-5) /HPF Urine Microscopic WBC 6-10 A (0-5) /HPF Ur Epithelial Cells Rare (None Seen) /HPF Urine Bacteria None Seen (None Seen) /HPF Urine Culture Reflexed YES (NO) - Progress Progress: improved Progress Note: 38-year-old female presents the emergency department for evaluation of acute onset dizziness. Patient was sitting at home when symptoms started. Patient presented to our ED for an evaluation. Neurologic exam within normal limits. CT head unremarkable. Laboratory workup essentially unremarkable. UA suggestive of urinary tract infection. Rocephin ordered. Teleneurologist consulted. Teleneurologist feels that it is more than likely a inner ear cause however he cannot rule out posterior circulation TIA/stroke. We discussed the probabilities and the importance of ruling out a stroke. Patient agreed to hospitalization for further evaluation/MRI. Vital stable. Patient agrees to admission [facility] for further evaluation and treatment. I discussed the case with Dr. Watson at [address] Watson accepts admission. Aspirin administered 324 mg chewable Complex of problem addressed moderate acute complicated No critical care time Complexity of data reviewed and analyzed is extensive. Test ordered test reviewed results analyzed and correlated clinically with history and physical exam. Management discussed with teleneurologist as well as meeting hospitalist. Risk of complication and or risk of morbidity/mortality of patient management is high. Patient requires hospitalization for further evaluation and treatment. Vital stable. Time spent admit patient is approximately 30 minutes. Plan of care established for shared decision making. No social determinants of health present to impede follow-up. Portions of this note were created with voice recognition technology. There may be grammatical, spelling, punctuation or sound alike errors 10/18/23 01:05 Counseled pt/family regarding: lab results, diagnosis - Departure Departure Disposition: Observation Clinical Impression: Dizziness, Acute posterior circulation transient ischemic attack, UTI (urinary tract infection) Condition: Stable Critical Care Time: No Referrals: KATHLEEN RHODES [Primary Care Provider] - Follow up/PCP as directed
[2023-10-17] MEDS: Sodium Chloride 0.9% 1000 ML 1,000 ML IV SCH (20:04)
[2023-10-17 20:30] LABS: Absolute Neutrophil Ct (ANC) 8.92 x10^3/uL (1.4-6.9); BASOPHIL % 0.6 % (0.0-0.4); Basophil (Absolute #) 0.08 x10^3/uL (0-0.4); Eosinophil % 2.7 % (0.00-5.0); Eosinophil (Absolute #) 0.37 x10^3/uL (0-0.5); Hematocrit 38.4 % (35-47); Hemoglobin 12.6 g/dL (12.0-16.0); IMMATURE GRAN # 0.05 x10^3u/L (0.00-0.03); IMMATURE GRAN % 0.4 % (0.00-0.4); Lymphocyte (Absolute #) 3.33 x10^3/uL (1.0-4.6); Lymphocytes % 24.7 % (24.0-44.0); Mean Cell Volume 86.9 fL (78-100); Mean Corpuscular Hemoglobin 28.5 pg (26-32); Mean Corpuscular Hgb Concent. 32.8 g/dL (32-36); Mean Platelet Volume 11.7 fL (7.5-11.0); Monocyte (Absolute #) 0.75 x10^3/uL (0.0-1.3); Monocytes % 5.6 % (0.0-12.0); Platelet Count 363 x10^3/uL (150-450); Red Blood Count 4.42 x10^6/uL (4.1-5.4); Red Cell Distribution Width 13.7 % (11.5-14.0); White Blood Count 13.5 x10^3/uL (4.0-10.5)
[2023-10-17 20:40] LABS: ADD URINE CULTURE? YES (NO); Appearance Cloudy (Clear); Bacteria None Seen /HPF (None Seen); Bilirubin Negative (Negative); Blood Moderate (Negative); Epithelial Cells Rare /HPF (None Seen); Glucose, Urine Negative (Negative); Hyaline Casts NONE SEEN /LPF (0-2); Ketones Negative (Negative); Leukocyte Esterase Small (Negative); Nitrite Negative (Negative); Ph 7.5 (4.6-8.0); Protein,Urine Dip Negative (Negative); Urobilinogen 0.2 mg/dL (0.2)
[2023-10-17 20:42] LABS: HCG SERUM TEST NEGATIVE (NEGATIVE)
[2023-10-17 20:44] LABS: ALBUMIN 4.2 g/dL (3.5-5.0); ANION GAP 13.9 MEQ/L (5-15); BILIRUBIN,TOTAL 0.6 mg/dL (0.2-1.3); Calcium 9.3 mg/dL (8.4-10.2); Creatinine 1 0.66 mg/dL (0.52-1.04); EST GLOMERULAR FILTRATION RATE 116.5 ML/MIN; Potassium 4.1 mmol/L (3.5-5.1); Total Protein 7.9 g/dL (6.3-8.2)
--- NOTE | 2023-10-18 01:09 | PCM.HP ---
History of Present Illness - Chief Complaint Chief Complaint: dizziness Date: 10/17/23 History of Present Illness: Ms. JENKINS is a 38 year old female with no significant past medical history who presents to the hospital with complaints of dizziness that started this evening around 6 p.m. She was seen in the ER and evaluated by CT head, which was negative. She was seen by neurology who has recommended admission to receive MRI brain. She is resting in bed, awake/alert. No headache, changes in vision. No fever/chills. No chest pain or shortness of breath. No nausea, vomiting or diarrhea. No dysuria, hematuria or foamy/frothy urine. - Review of Systems Constitutional: No Fever, No Chills Eyes: No Vision Changes Ears, Nose, & Throat: No Ear Discharge, No Hoarse Respiratory: No Cough, No Orthopnea, No Short Of Breath Cardiac: No Chest Pain, No Edema, No Palpitations Abdominal/Gastrointestinal: No Abdominal Pain, No Nausea, No Vomiting, No Diarrhea Genitourinary Symptoms: No Dysuria, No Frequency, No Hematuria Musculoskeletal: No Arthralgias, No Back Pain Skin: No Rash Neurological: Dizziness, No Headache Psychological: No Suicidal Ideations Medications & Allergies Home Medications: Home Medication List No Reportable Medications [No Reported Medications] 10/17/23 [History Confirmed 10/17/23] Allergies/Adverse Reactions: Allergies Allergy/AdvReac Type Severity Reaction Status Date / Time paroxetine [From Paxil] Allergy Verified 10/17/23 19:51 - Past Medical History Past Medical History: No Neurological History: No Pertinent History ENT History: No Pertinent History Cardiac History: No Pertinent History Respiratory History: No Pertinent History Endocrine Medical History: No Pertinent History Musculoskelatal History: No Pertinent History GI Medical History: No Pertinent History History: No Pertinent History Pyscho-Social History: No Pertinent History Reproductive Disorders: No Pertinent History Comment: irregular periods - Female History Hx Last Menstrual Period: currently on Are you now?: No - Past Surgical History Past Surgical History: Yes Neuro Surgical History: No Pertinent History Cardiac History: No Pertinent History Respiratory Surgery: No Pertinent History GI Surgical History: Cholecystectomy Genitourinary Surgical Hx: No Pertinent History Musculskeletal Surgical Hx: No Pertinent History Female Surgical History: No Pertinent History - Social History Smoking Status: Current every day smoker How long have you smoked: 11 years Exposure to second hand smoke: Yes Alcohol: None Drug Use: none - Social Determinants of Health Will the patient participate in the screening: Yes Do you worry about a steady place to live?: No Do you have any problems with any of the following?: No known problems In the past 12 months,have you had to go without utilities?: No Have you or anyone in your house had to go without enough: No Transportation Issues: No Has anyone in your support network made you feel unsafe?: No - Physical Exam Vital Signs: Vital Signs - 24 hr Temp Pulse Resp BP BP Pulse Ox 10/18/23 00:00 92 H 18 108/72 98 10/17/23 23:59 98 10/17/23 23:30 93 H 18 107/65 97 10/17/23 23:00 82 16 96/65 99 10/17/23 22:30 80 18 105/69 98 10/17/23 22:00 84 17 112/72 98 10/17/23 21:30 86 18 115/83 98 10/17/23 21:00 89 18 115/93 99 10/17/23 20:30 91 H 26 H 114/79 97 10/17/23 20:13 98 10/17/23 20:00 79 21 130/87 98 10/17/23 19:54 97.2 F 85 18 128/97 99 General Appearance: no apparent distress Neurologic Exam: alert Ears, Nose, Throat Exam: dry mucous membranes Neck Exam: supple Respiratory Exam: No respiratory distress Cardiovascular Exam: regular rate/rhythm Gastrointestinal/Abdomen Exam: soft Skin Exam: normal color, No rash Results - Labs Lab/Micro Results: Lab Results-Last 24 Hours 10/17/23 10/17/23 10/17/23 Range/Units 20:06 20:06 20:06 WBC 13.5 H (4.0-10.5) x10^3/uL RBC 4.42 (4.1-5.4) x10^6/uL Hgb 12.6 (12.0-16.0) g/dL Hct 38.4 (35-47) % MCV 86.9 (78-100) fL MCH 28.5 (26-32) pg MCHC 32.8 (32-36) g/dL RDW 13.7 (11.5-14.0) % Plt Count 363 (150-450) x10^3/uL MPV 11.7 H (7.5-11.0) fL Gran % 66.0 (36.0-66.0) % Immature Gran % (Auto) 0.4 (0.00-0.4) % Nucleat RBC Rel Count 0.0 (0.00-0.1) % Eos # (Auto) 0.37 (0-0.5) x10^3/uL Immature Gran # (Auto) 0.05 H (0.00-0.03) x10^3u/L Absolute Lymphs (auto) 3.33 (1.0-4.6) x10^3/uL Absolute Monos (auto) 0.75 (0.0-1.3) x10^3/uL Absolute Nucleated RBC 0.00 (0.00-0.01) x10^3u/L Lymphocytes % 24.7 (24.0-44.0) % Monocytes % 5.6 (0.0-12.0) % Eosinophils % 2.7 (0.00-5.0) % Basophils % 0.6 (0.0-0.4) % Absolute Granulocytes 8.92 H (1.4-6.9) x10^3/uL Basophils # 0.08 (0-0.4) x10^3/uL Sodium 142 (135-145) mmol/L Potassium 4.1 (3.5-5.1) mmol/L Chloride 106 (98-107) mmol/L Carbon Dioxide 26 (22-30) mmol/L Anion Gap 13.9 (5-15) MEQ/L BUN 12 (7-17) mg/dL Creatinine 0.66 (0.52-1.04) mg/dL Estimated GFR 116.5 ML/MIN Glucose 95 (74-106) mg/dL Calcium 9.3 (8.4-10.2) mg/dL Total Bilirubin 0.60 (0.2-1.3) mg/dL AST 40 H (14-36) U/L ALT 42 H (0-35) U/L Alkaline Phosphatase 48 (38-126) U/L Troponin I (0.000-0.033) ng/mL Serum Total Protein 7.9 (6.3-8.2) g/dL Albumin 4.2 (3.5-5.0) g/dL Serum HCG, Qual (NEGATIVE) Urine Color Yellow (Yellow) Urine Appearance Cloudy A (Clear) Urine pH 7.5 (4.6-8.0) Ur Specific [place] 1.010 (1.005-1.030) Urine Protein Negative (Negative) Urine Glucose (UA) Negative (Negative) mg/dL Urine Ketones Negative (Negative) Urine Blood Moderate A (Negative) Urine Nitrite Negative (Negative) Urine Bilirubin Negative (Negative) Urine Urobilinogen 0.2 (0.2) mg/dL Ur Leukocyte Esterase Small A (Negative) U Hyaline Cast (Auto) NONE SEEN (0-2) /LPF Urine Microscopic RBC 3-5 (0-5) /HPF Urine Microscopic WBC 6-10 A (0-5) /HPF Ur Epithelial Cells Rare (None Seen) /HPF Urine Bacteria None Seen (None Seen) /HPF Urine Culture Reflexed YES (NO) 10/17/23 10/17/23 Range/Units 20:06 20:06 WBC (4.0-10.5) x10^3/uL RBC (4.1-5.4) x10^6/uL Hgb (12.0-16.0) g/dL Hct (35-47) % MCV (78-100) fL MCH (26-32) pg MCHC (32-36) g/dL RDW (11.5-14.0) % Plt Count (150-450) x10^3/uL MPV (7.5-11.0) fL Gran % (36.0-66.0) % Immature Gran % (Auto) (0.00-0.4) % Nucleat RBC Rel Count (0.00-0.1) % Eos # (Auto) (0-0.5) x10^3/uL Immature Gran # (Auto) (0.00-0.03) x10^3u/L Absolute Lymphs (auto) (1.0-4.6) x10^3/uL Absolute Monos (auto) (0.0-1.3) x10^3/uL Absolute Nucleated RBC (0.00-0.01) x10^3u/L Lymphocytes % (24.0-44.0) % Monocytes % (0.0-12.0) % Eosinophils % (0.00-5.0) % Basophils % (0.0-0.4) % Absolute Granulocytes (1.4-6.9) x10^3/uL Basophils # (0-0.4) x10^3/uL Sodium (135-145) mmol/L Potassium (3.5-5.1) mmol/L Chloride (98-107) mmol/L Carbon Dioxide (22-30) mmol/L Anion Gap (5-15) MEQ/L BUN (7-17) mg/dL Creatinine (0.52-1.04) mg/dL Estimated GFR ML/MIN Glucose (74-106) mg/dL Calcium (8.4-10.2) mg/dL Total Bilirubin (0.2-1.3) mg/dL AST (14-36) U/L ALT (0-35) U/L Alkaline Phosphatase (38-126) U/L Troponin I < 0.012 (0.000-0.033) ng/mL Serum Total Protein (6.3-8.2) g/dL Albumin (3.5-5.0) g/dL Serum HCG, Qual NEGATIVE (NEGATIVE) Urine Color (Yellow) Urine Appearance (Clear) Urine pH (4.6-8.0) Ur Specific [place] (1.005-1.030) Urine Protein (Negative) Urine Glucose (UA) (Negative) mg/dL Urine Ketones (Negative) Urine Blood (Negative) Urine Nitrite (Negative) Urine Bilirubin (Negative) Urine Urobilinogen (0.2) mg/dL Ur Leukocyte Esterase (Negative) U Hyaline Cast (Auto) (0-2) /LPF Urine Microscopic RBC (0-5) /HPF Urine Microscopic WBC (0-5) /HPF Ur Epithelial Cells (None Seen) /HPF Urine Bacteria (None Seen) /HPF Urine Culture Reflexed (NO) - Radiology Impressions Radiology Exams & Impressions: Radiology Procedures Category Date Time Status HEAD WITHOUT CONTRAST [CT] Stat Exams 10/17/23 19:58 Taken Assessment/Plan (1) Dizziness Current Visit: Yes Status: Acute Assessment & Plan: Unclear etiology, but need to rule out CVA versus infection versus inner ear problems 1. MRI brain 2. ASA 3. Neuro checks Code(s): R42 - DIZZINESS AND GIDDINESS (2) UTI (urinary tract infection) Current Visit: Yes Status: Acute Assessment & Plan: Elevated WBC with cloudy appearing urine 1. Will treat with empiric antibiotics 2. F/u cultures 3. Trend WBC Code(s): N39.0 - URINARY TRACT INFECTION, SITE NOT SPECIFIED (3) Hematuria Current Visit: Yes Status: Acute Assessment & Plan: May be related to UTI versus menstrual cycle 1. Recheck U/a 2. IVFs Code(s): R31.9 - HEMATURIA, UNSPECIFIED Telemedicine Encounter - Telemedicine Encounter Telemedicine Encounter: The entirety of this encounter was performed via Telemedicine"
[2023-10-18] MEDS ORDERED: BABY ASPIRIN 81 MG CHEW ONE (01:10)
[2023-10-18] MEDS: ROCEPHIN 1 GM / 100 ML NaCl 1 GM/100 ML IVPB IV ONE (01:11)
[2023-10-18] MEDS ORDERED: ROCEPHIN 1 GM / 100 ML NaCl 1 GM/100 ML IVPB IV ONE (01:11)
[2023-10-18] MEDS: BABY ASPIRIN 81 MG CHEW PO ONE (01:12)
[2023-10-18] MEDS ORDERED: Sodium Chloride 0.9% 1000 ML 1,000 ML IV SCH (01:45)
[2023-10-18] MEDS: xanAX 0.5 MG PO PRN (02:37)
[2023-10-18 05:17] LABS: Hematocrit 33.3 % (35-47); Mean Cell Volume 86.3 fL (78-100); Mean Corpuscular Hemoglobin 28.5 pg (26-32); Mean Platelet Volume 11.5 fL (7.5-11.0); Platelet Count 279 x10^3/uL (150-450); Red Blood Count 3.86 x10^6/uL (4.1-5.4); Red Cell Distribution Width 14.1 % (11.5-14.0); White Blood Count 8.7 x10^3/uL (4.0-10.5)
[2023-10-18 05:43] LABS: ALBUMIN 3.4 g/dL (3.5-5.0); ANION GAP 9.8 MEQ/L (5-15); BILIRUBIN,TOTAL 0.3 mg/dL (0.2-1.3); Calcium 8.3 mg/dL (8.4-10.2); Creatinine 1 0.73 mg/dL (0.52-1.04); EST GLOMERULAR FILTRATION RATE 109.2 ML/MIN; Potassium 3.7 mmol/L (3.5-5.1); Total Protein 6.2 g/dL (6.3-8.2)
[2023-10-18 07:37] VITALS: RESP 16; TEMP 97.5; O2SAT 96
--- NOTE | 2023-10-18 08:40 | XRAY ---
Indication: Dizziness. Multiple contiguous axial images obtained through the head without contrast. Comparison: None Normal appearing brain parenchyma, ventricles, and bony calvarium. Visualized paranasal sinuses and mastoid air cells are clear. Impression: Normal CT head without contrast exam.
--- NOTE | 2023-10-18 11:00 | PCM.DS ---
Discharge Summary Date of Admission: 10/18/23 01:26 Date of Discharge: 10/18/23 Admitting Physician: DALE AUGUST MD Primary Care Provider: KATHLEEN RHODES Allergies Allergies paroxetine [From Paxil] Allergy (Verified 10/17/23 19:51) Hospital Summary - Hospital Course Hospital Course: Ms. JENKINS is a 38 year old female with no significant past medical history who presents to the hospital with complaints of dizziness that started this evening around 6 p.m. She was seen in the ER and evaluated by CT head, which was negative. She was seen by neurology who has recommended admission to receive MRI brain. She is resting in bed, awake/alert. No headache, changes in vision. No fever/chills. No chest pain or shortness of breath. No nausea, vomiting or diarrhea. No dysuria, hematuria or foamy/frothy urine. She does admit to heavy and frequent menstrual cycles. She reports she recently had an evaluation by [facility] with a pelvic exam and there were no concerning findings. Urged her to f/u again regarding her persistent bleeding. Anemia panel ordered for further evaluation of sxs. MRI pending and if negative will d/c today as pt is requesting to go home. - Vitals & Intake/Output Vital Signs: Vital Signs Temperature 97.5 F 10/18/23 07:36 Pulse Rate 82 10/18/23 07:36 Respiratory Rate 16 10/18/23 07:36 Blood Pressure 113/68 10/18/23 07:36 O2 Sat by Pulse Oximetry 96 10/18/23 07:36 Intake & Output: Intake & Output 10/15/23 10/16/23 10/17/23 10/18/23 11:59 11:59 11:59 11:59 Intake Total 120 Balance 120 Weight 88.9 kg - Lab Result Diagrams: 10/18/23 05:10 10/18/23 05:10 Lab Results-Last 24 Hrs: Lab Results-Last 24 Hours 10/17/23 10/17/23 10/17/23 Range/Units 20:06 20:06 20:06 WBC 13.5 H (4.0-10.5) x10^3/uL RBC 4.42 (4.1-5.4) x10^6/uL Hgb 12.6 (12.0-16.0) g/dL Hct 38.4 (35-47) % MCV 86.9 (78-100) fL MCH 28.5 (26-32) pg MCHC 32.8 (32-36) g/dL RDW 13.7 (11.5-14.0) % Plt Count 363 (150-450) x10^3/uL MPV 11.7 H (7.5-11.0) fL Gran % 66.0 (36.0-66.0) % Immature Gran % (Auto) 0.4 (0.00-0.4) % Nucleat RBC Rel Count 0.0 (0.00-0.1) % Eos # (Auto) 0.37 (0-0.5) x10^3/uL Immature Gran # (Auto) 0.05 H (0.00-0.03) x10^3u/L Absolute Lymphs (auto) 3.33 (1.0-4.6) x10^3/uL Absolute Monos (auto) 0.75 (0.0-1.3) x10^3/uL Absolute Nucleated RBC 0.00 (0.00-0.01) x10^3u/L Lymphocytes % 24.7 (24.0-44.0) % Monocytes % 5.6 (0.0-12.0) % Eosinophils % 2.7 (0.00-5.0) % Basophils % 0.6 (0.0-0.4) % Absolute Granulocytes 8.92 H (1.4-6.9) x10^3/uL Basophils # 0.08 (0-0.4) x10^3/uL Sodium 142 (135-145) mmol/L Potassium 4.1 (3.5-5.1) mmol/L Chloride 106 (98-107) mmol/L Carbon Dioxide 26 (22-30) mmol/L Anion Gap 13.9 (5-15) MEQ/L BUN 12 (7-17) mg/dL Creatinine 0.66 (0.52-1.04) mg/dL Estimated GFR 116.5 ML/MIN Glucose 95 (74-106) mg/dL Calcium 9.3 (8.4-10.2) mg/dL Total Bilirubin 0.60 (0.2-1.3) mg/dL AST 40 H (14-36) U/L ALT 42 H (0-35) U/L Alkaline Phosphatase 48 (38-126) U/L Troponin I (0.000-0.033) ng/mL Serum Total Protein 7.9 (6.3-8.2) g/dL Albumin 4.2 (3.5-5.0) g/dL Serum HCG, Qual (NEGATIVE) Urine Color Yellow (Yellow) Urine Appearance Cloudy A (Clear) Urine pH 7.5 (4.6-8.0) Ur Specific [place] 1.010 (1.005-1.030) Urine Protein Negative (Negative) Urine Glucose (UA) Negative (Negative) mg/dL Urine Ketones Negative (Negative) Urine Blood Moderate A (Negative) Urine Nitrite Negative (Negative) Urine Bilirubin Negative (Negative) Urine Urobilinogen 0.2 (0.2) mg/dL Ur Leukocyte Esterase Small A (Negative) U Hyaline Cast (Auto) NONE SEEN (0-2) /LPF Urine Microscopic RBC 3-5 (0-5) /HPF Urine Microscopic WBC 6-10 A (0-5) /HPF Ur Epithelial Cells Rare (None Seen) /HPF Urine Bacteria None Seen (None Seen) /HPF Urine Culture Reflexed YES (NO) 10/17/23 10/17/23 10/18/23 Range/Units 20:06 20:06 05:10 WBC 8.7 (4.0-10.5) x10^3/uL RBC 3.86 L (4.1-5.4) x10^6/uL Hgb 11.0 L (12.0-16.0) g/dL Hct 33.3 L (35-47) % MCV 86.3 (78-100) fL MCH 28.5 (26-32) pg MCHC 33.0 (32-36) g/dL RDW 14.1 H (11.5-14.0) % Plt Count 279 (150-450) x10^3/uL MPV 11.5 H (7.5-11.0) fL Gran % (36.0-66.0) % Immature Gran % (Auto) (0.00-0.4) % Nucleat RBC Rel Count (0.00-0.1) % Eos # (Auto) (0-0.5) x10^3/uL Immature Gran # (Auto) (0.00-0.03) x10^3u/L Absolute Lymphs (auto) (1.0-4.6) x10^3/uL Absolute Monos (auto) (0.0-1.3) x10^3/uL Absolute Nucleated RBC (0.00-0.01) x10^3u/L Lymphocytes % (24.0-44.0) % Monocytes % (0.0-12.0) % Eosinophils % (0.00-5.0) % Basophils % (0.0-0.4) % Absolute Granulocytes (1.4-6.9) x10^3/uL Basophils # (0-0.4) x10^3/uL Sodium (135-145) mmol/L Potassium (3.5-5.1) mmol/L Chloride (98-107) mmol/L Carbon Dioxide (22-30) mmol/L Anion Gap (5-15) MEQ/L BUN (7-17) mg/dL Creatinine (0.52-1.04) mg/dL Estimated GFR ML/MIN Glucose (74-106) mg/dL Calcium (8.4-10.2) mg/dL Total Bilirubin (0.2-1.3) mg/dL AST (14-36) U/L ALT (0-35) U/L Alkaline Phosphatase (38-126) U/L Troponin I < 0.012 (0.000-0.033) ng/mL Serum Total Protein (6.3-8.2) g/dL Albumin (3.5-5.0) g/dL Serum HCG, Qual NEGATIVE (NEGATIVE) Urine Color (Yellow) Urine Appearance (Clear) Urine pH (4.6-8.0) Ur Specific [place] (1.005-1.030) Urine Protein (Negative) Urine Glucose (UA) (Negative) mg/dL Urine Ketones (Negative) Urine Blood (Negative) Urine Nitrite (Negative) Urine Bilirubin (Negative) Urine Urobilinogen (0.2) mg/dL Ur Leukocyte Esterase (Negative) U Hyaline Cast (Auto) (0-2) /LPF Urine Microscopic RBC (0-5) /HPF Urine Microscopic WBC (0-5) /HPF Ur Epithelial Cells (None Seen) /HPF Urine Bacteria (None Seen) /HPF Urine Culture Reflexed (NO) 10/18/23 Range/Units 05:10 WBC (4.0-10.5) x10^3/uL RBC (4.1-5.4) x10^6/uL Hgb (12.0-16.0) g/dL Hct (35-47) % MCV (78-100) fL MCH (26-32) pg MCHC (32-36) g/dL RDW (11.5-14.0) % Plt Count (150-450) x10^3/uL MPV (7.5-11.0) fL Gran % (36.0-66.0) % Immature Gran % (Auto) (0.00-0.4) % Nucleat RBC Rel Count (0.00-0.1) % Eos # (Auto) (0-0.5) x10^3/uL Immature Gran # (Auto) (0.00-0.03) x10^3u/L Absolute Lymphs (auto) (1.0-4.6) x10^3/uL Absolute Monos (auto) (0.0-1.3) x10^3/uL Absolute Nucleated RBC (0.00-0.01) x10^3u/L Lymphocytes % (24.0-44.0) % Monocytes % (0.0-12.0) % Eosinophils % (0.00-5.0) % Basophils % (0.0-0.4) % Absolute Granulocytes (1.4-6.9) x10^3/uL Basophils # (0-0.4) x10^3/uL Sodium 139 (135-145) mmol/L Potassium 3.7 (3.5-5.1) mmol/L Chloride 109 H (98-107) mmol/L Carbon Dioxide 24 (22-30) mmol/L Anion Gap 9.8 (5-15) MEQ/L BUN 11 (7-17) mg/dL Creatinine 0.73 (0.52-1.04) mg/dL Estimated GFR 109.2 ML/MIN Glucose 110 H (74-106) mg/dL Calcium 8.3 L (8.4-10.2) mg/dL Total Bilirubin 0.30 (0.2-1.3) mg/dL AST 27 (14-36) U/L ALT 35 (0-35) U/L Alkaline Phosphatase 50 (38-126) U/L Troponin I (0.000-0.033) ng/mL Serum Total Protein 6.2 L (6.3-8.2) g/dL Albumin 3.4 L (3.5-5.0) g/dL Serum HCG, Qual (NEGATIVE) Urine Color (Yellow) Urine Appearance (Clear) Urine pH (4.6-8.0) Ur Specific [place] (1.005-1.030) Urine Protein (Negative) Urine Glucose (UA) (Negative) mg/dL Urine Ketones (Negative) Urine Blood (Negative) Urine Nitrite (Negative) Urine Bilirubin (Negative) Urine Urobilinogen (0.2) mg/dL Ur Leukocyte Esterase (Negative) U Hyaline Cast (Auto) (0-2) /LPF Urine Microscopic RBC (0-5) /HPF Urine Microscopic WBC (0-5) /HPF Ur Epithelial Cells (None Seen) /HPF Urine Bacteria (None Seen) /HPF Urine Culture Reflexed (NO) - Radiology Exams Ordered Rad Exams-Entire Visit: Radiology Procedures Category Date Time Status HEAD WITHOUT CONTRAST [CT] Stat Exams 10/17/23 19:58 Completed MRI BRAIN W & W/O CONTRAST [MRI] Routine Exams 10/18/23 01:35 Ordered Discharge Exam General Appearance: no apparent distress, alert Neurologic Exam: alert, oriented x 3, cooperative, normal mood/affect, nml cerebellar function, sensation nml, No motor deficits Eye Exam: PERRL, EOMI, eyes nml inspection Ears, Nose, Throat Exam: normal ENT inspection, pharynx normal, moist mucous membranes Neck Exam: normal inspection, non-tender, supple, full range of motion Respiratory Exam: normal breath sounds, lungs clear, No respiratory distress Cardiovascular Exam: regular rate/rhythm, normal heart sounds Gastrointestinal/Abdomen Exam: soft, No tenderness, No mass Pelvic Exam: deferred Rectal Exam: deferred Back Exam: normal inspection, normal range of motion, No CVA tenderness, No vertebral tenderness Extremity Exam: normal inspection, normal range of motion Skin Exam: normal color, warm, dry Final Diagnosis/Problem List - Final Discharge Diagnosis/Problem (1) UTI (urinary tract infection) Current Visit: Yes Status: Acute Assessment & Plan: - IV antibiotics - UC pending Code(s): N39.0 - URINARY TRACT INFECTION, SITE NOT SPECIFIED (2) Dizziness Current Visit: Yes Status: Acute Assessment & Plan: - 2:2 UTI and heavy menstrual bleeding - CT head negative for acute process - MRI- Pending- if negative can d/c Code(s): R42 - DIZZINESS AND GIDDINESS (3) Hematuria Current Visit: Yes Status: Acute Assessment & Plan: - 2:2 menstrual bleeding Code(s): R31.9 - HEMATURIA, UNSPECIFIED (4) Heavy menstrual bleeding Current Visit: Yes Status: Chronic Assessment & Plan: - F/u OP with [facility] OP for further f/u care - anemia panel ordered - Hgb 11 Code(s): N92.0 - EXCESSIVE AND FREQUENT MENSTRUATION WITH REGULAR CYCLE - Discharge Discharge Date: 10/18/23 Disposition: Home, Self-Care Condition: Stable Prescriptions: New Cefuroxime Axetil 500 mg [Ceftin 500 mg] 500 mg PO BID 5 Days #10 tablet Follow up with: KATHLEEN RHODES [Primary Care Provider] - 10/23/23 10:00 am
[2023-10-18] MEDS: Tums EX 750 MG PO PRN (11:13)
[2023-10-18] MEDS: TYLENOL 325 MG PO PRN (11:13)
[2023-10-18 11:52] LABS: Iron 89 ug/dL (37-170); Iron Saturation 29 % (20-39); TIBC 307 ug/dL (265-462)
[2023-10-18 12:02] VITALS: BP 128/84; PULSE 80
[2023-10-18 12:50] LABS: Ferritin 21.4 ng/mL (6.24-137); Folate (Folic Acid) 6.99 ng/mL (2.76 - >20)
--- NOTE | 2023-10-18 14:03 | XRAY ---
Indication: Dizziness. Normal CT head without contrast exam. Sagittal, coronal, and axial MRI brain performed using pre and post T1, T2, FLAIR, diffusion, and ADC sequences. 15 cc Dotarem contrast used. Comparison: None Ventriculosulcal pattern appears symmetric. No acute intracranial hemorrhage, abnormal extra-axial fluid collection, or mass effect. Diffusion images are negative for restricted signal. Following gadolinium, there is no abnormal enhancing intra or extra-axial mass. Fourth ventricle is midline without hydrocephalus. 7/8 cranial nerve complex bilaterally symmetric. Normal flow void signal within the major intracerebral circulation. Normal appearing craniocervical junction and sella turcica. Visualized paranasal sinuses are clear. Impression: Negative MRI brain with contrast exam.
[2023-10-18] MEDS ORDERED: ROCEPHIN 1 GM / 100 ML NaCl 1 GM/100 ML IVPB IV SCH (22:00)
== END 2023-10-18 14:52 | disposition home or self-care (01) ==
LOC: ED 19:28 → MED SURG 10-18 01:26
PROVIDERS: ADMIT Internal Medicine Nephrology; ATTEND Internal Medicine Nephrology
DX: N39.0 Urinary tract infection, site not specified (principal); R42 Dizziness and giddiness; R31.9 Hematuria, unspecified; N92.0 Excessive and frequent menstruation with regular cycle; F17.200 Nicotine dependence, unspecified, uncomplicated
CPT/HCPCS: 36000; 36415; 70450; 70553; 80053; 81001; 82607; 82728; 82746; 83540; 83550; 84484; 84703; 85025; 85027; 87086; 93005; 93041; 94760; Q3014; 93268; 99285; J0696; A9270-GY; G0378

== ENCOUNTER 2024-03-13 10:19 | Emergency (ER) | payer SELFPAY ==
[2024-03-13 10:43] VITALS: TEMP 96.6
[2024-03-13 10:43] LABS: HCG URINE TEST POSITIVE (NEGATIVE)
[2024-03-13 10:55] LABS: Appearance Cloudy (Clear); Bacteria Moderate /HPF (None Seen); Bilirubin Negative (Negative); Blood Negative (Negative); Epithelial Cells Moderate /HPF (None Seen); Glucose, Urine Negative (Negative); Hyaline Casts NONE SEEN /LPF (0-2); Ketones Trace (Negative); Leukocyte Esterase Moderate (Negative); Nitrite Negative (Negative); Protein,Urine Dip Trace (Negative); Specific Gravity 1.025 (1.005-1.030); Urobilinogen 0.2 mg/dL (0.2); WBC 21-50 /HPF (0-5)
[2024-03-13 10:56] LABS: ADD URINE CULTURE? YES (NO)
[2024-03-13] MEDS ORDERED: Sodium Chloride 0.9% 1000 ML 1,000 ML ONE (11:13)
[2024-03-13] MEDS: Sodium Chloride 0.9% 1000 ML 1,000 ML IV STA (11:14)
[2024-03-13] MEDS ORDERED: ROCEPHIN 2 GM/100 ML NACL 2 GM/100 ML IVPB IV ONE (11:21)
[2024-03-13] MEDS: ROCEPHIN 2 GM/100 ML NACL 2 GM/100 ML IVPB IV ONE (11:22)
[2024-03-13 11:40] LABS: Absolute Neutrophil Ct (ANC) 7.49 x10^3/uL (1.56-6.13); BASOPHIL % 0.5 % (0.1-1.2); Basophil (Absolute #) 0.05 x10^3/uL (0.01-0.08); Eosinophil % 1.5 % (0.7-5.8); Eosinophil (Absolute #) 0.15 x10^3/uL (0.04-0.36); Hematocrit 36.5 % (34.1-44.9); Hemoglobin 11.7 g/dL (11.2-15.7); IMMATURE GRAN # 0.05 x10^3u/L (0.001-0.031); IMMATURE GRAN % 0.5 % (0.001-0.429); Lymphocyte (Absolute #) 1.97 x10^3/uL (1.18-3.74); Lymphocytes % 19.5 % (19.3-51.7); Mean Cell Volume 86.9 fL (79.4-94.8); Mean Corpuscular Hemoglobin 27.9 pg (25.6-32.2); Mean Corpuscular Hgb Concent. 32.1 g/dL (32.2-35.5); Mean Platelet Volume 12.3 fL (9.4-12.3); Monocyte (Absolute #) 0.41 x10^3/uL (0.24-0.86); Monocytes % 4.1 % (4.7-12.5); Neutrophil % 73.9 % (34.0-71.1); Platelet Count 274 x10^3/uL (182-369); White Blood Count 10.1 x10^3/uL (3.98-10.04)
[2024-03-13 12:11] LABS: ALBUMIN 4.1 g/dL (3.5-5.0); ANION GAP 15.3 MEQ/L (5-15); BILIRUBIN,TOTAL 0.3 mg/dL (0.2-1.3); Calcium 9.1 mg/dL (8.4-10.2); Creatinine 1 0.58 mg/dL (0.52-1.04); EST GLOMERULAR FILTRATION RATE 120.2 ML/MIN; Potassium 3.5 mmol/L (3.5-5.1); Total Protein 7.2 g/dL (6.3-8.2)
[2024-03-13 12:18] LABS: ABO TYPING A; Antibody Screen NEGATIVE (NEGATIVE); RH TYPING POSITIVE
[2024-03-13 13:53] VITALS: RESP 21
[2024-03-13 14:43] VITALS: O2SAT 99
--- NOTE | 2024-03-13 15:32 | ERPHSYRPT ---
- History of Present Illness Time Seen by Provider: 03/13/24 10:21 Source: patient Exam Limitations: no limitations Patient Subjective Stated Complaint: C/O abdominal cramping for a few weeks that is more intense today. States she took a home test in the middle of January that was positive. Has her first OB appointment with Dr. Graham on 03/18/24. Triage Nursing Assessment: Patient ambulated back to ER without difficulties. She is alert and oriented. Skin tone normal. ADRIENNE DIAMOND. Physician History: 38 years old 2 para 1 with LMP early December presented to the ER with off-and-on cramping for the last few weeks. Patient denies any vaginal bleeding or discharge. She took her home test which was positive. She is also complaining of bilateral lower back pain with some dysuria. Patient reports morning sickness as well. Patient is scheduled to have appointment with OB early next week. Allergies/Adverse Reactions: paroxetine [From Paxil] Allergy (Verified 03/13/24 10:30) Home Medications: Pnv No.95/Ferrous Fum/Folic AC [ Caplet] 1 cap PO DAILY 03/13/24 [History] Hx Tetanus, Diphtheria Vaccination/Date Given: Yes Hx Influenza Vaccination/Date Given: No Hx Pneumococcal Vaccination/Date Given: No Travel Risk - International Travel Have you traveled outside of the country in past 3 weeks: No - Emerging Infectious Disease Are you exhibiting symptoms associated with any current EIDs: Yes Symptoms: Abdominal Pain - Review of Systems Constitutional: No Symptoms Eyes: No Symptoms Ears, Nose, & Throat: No Symptoms Respiratory: No Symptoms Cardiac: No Symptoms Abdominal/Gastrointestinal: Abdominal Pain, Nausea Genitourinary Symptoms: Dysuria Musculoskeletal: Back Pain Skin: No Symptoms Neurological: No Symptoms Endocrine: No Symptoms Hematologic/Lymphatic: No Symptoms - Past Medical History Pertinent Past Medical History: No Neurological History: No Pertinent History ENT History: No Pertinent History Cardiac History: No Pertinent History Respiratory History: No Pertinent History Endocrine Medical History: No Pertinent History Musculoskeletal History: No Pertinent History GI Medical History: Gallbladder Disease History: No Pertinent History Psycho-Social History: No Pertinent History Female Reproductive Disorders: Menstrual Problems Other Medical History: irregular periods, kidney stones - Past Surgical History Past Surgical History: Yes Neuro Surgical History: No Pertinent History Cardiac: No Pertinent History Respiratory: No Pertinent History Gastrointestinal: Cholecystectomy Genitourinary: No Pertinent History Musculoskeletal: No Pertinent History Female Surgical History: No Pertinent History - Female History Hx Last Menstrual Period: 01/20/24 Hx Now: Yes (+ home mid January) Gestational Age: ? - Social History Smoking Status: Former smoker How long have you smoked: 11 years Exposure to second hand smoke: Yes Drug Use: none Patient Lives Alone: Yes - Social Determinants of Health Will the patient participate in the screening: Yes Do you worry about a steady place to live?: No Do you have any problems with any of the following?: No known problems In the past 12 months,have you had to go without utilities?: No Transportation Issues: No Has anyone in your support network made you feel unsafe?: No Have you or anyone in your house had to go without enough: No - Nursing Vital Signs Nursing Vital Signs: Initial Vital Signs Temperature 96.6 F 03/13/24 10:30 Pulse Rate 103 H 03/13/24 10:30 Respiratory Rate 20 03/13/24 10:30 Blood Pressure 105/71 03/13/24 10:30 O2 Sat by Pulse Oximetry 98 03/13/24 10:30 Pain Scale Pain Intensity 0 - Physical Exam General Appearance: no apparent distress, alert Eye Exam: PERRL/EOMI Ears, Nose, Throat Exam: normal ENT inspection Neck Exam: normal inspection, non-tender, supple, full range of motion Respiratory Exam: normal breath sounds, lungs clear Cardiovascular Exam: regular rate/rhythm, normal heart sounds Gastrointestinal/Abdomen Exam: soft, normal bowel sounds, No tenderness, No distention Back Exam: normal inspection, normal range of motion, No CVA tenderness Extremity Exam: normal inspection, normal range of motion Neurologic Exam: alert, oriented x 3, cooperative Skin Exam: normal color SpO2 Interpretation: normal SpO2: 99 O2 Delivery: Room Air Ordered Tests: Active Orders 24 hr Category Date Time Status IV Insertion STAT Care 03/13/24 10:53 Completed OB <14 WKS 1ST GESTATION [US] Stat Exams 03/13/24 12:39 Taken CBC W DIFF Stat Lab 03/13/24 11:15 Completed CMP Stat Lab 03/13/24 11:15 Completed CULTURE,URINE Stat Lab 03/13/24 10:35 Received HCG QUALITATIVE, URINE Stat Lab 03/13/24 10:35 Completed HCG, Quantitative (Inhouse) Stat Lab 03/13/24 11:15 Completed UA W/RFX UR CULTURE Stat Lab 03/13/24 10:35 Completed Medication Summary Discontinued Medications Generic Name Dose Route Start Last Admin Trade Name Mirta PRN Reason Stop Dose Admin Sodium Chloride 1,000 mls @ 999 mls/hr 03/13/24 10:53 03/13/24 12:15 Sodium Chloride 0.9% 1000 Ml IV 03/13/24 11:53 Infused .Q1H1M STA Infusion Ceftriaxone Sodium 2 gm in 100 mls @ 200 mls/hr 03/13/24 11:14 03/13/24 11:52 Rocephin 2 Gm/100 Ml Nacl IV 03/13/24 11:43 Infused STAT ONE Infusion Sodium Chloride Confirm 03/13/24 11:13 Sodium Chloride 0.9% 1000 Ml Administered 03/13/24 11:14 Dose 1,000 mls @ ud .ROUTE .STK-MED ONE Ceftriaxone Sodium Confirm 03/13/24 11:21 Rocephin 2 Gm/100 Ml Nacl Administered 03/13/24 11:22 Dose 2 gm in 100 mls @ ud IV .STK-MED ONE Lab/Rad Data: Laboratory Result Diagrams 03/13/24 11:15 03/13/24 11:15 Laboratory Results 03/13/24 03/13/24 03/13/24 Range/Units 11:25 11:15 11:15 WBC 10.1 H (3.98-10.04) x10^3/uL RBC 4.20 (3.93-5.22) x10^6/uL Hgb 11.7 (11.2-15.7) g/dL Hct 36.5 (34.1-44.9) % MCV 86.9 (79.4-94.8) fL MCH 27.9 (25.6-32.2) pg MCHC 32.1 L (32.2-35.5) g/dL RDW 14.0 (11.7-14.4) % Plt Count 274 (182-369) x10^3/uL MPV 12.3 (9.4-12.3) fL Gran % 73.9 H (34.0-71.1) % Immature Gran % (Auto) 0.5 H (0.001-0.429) % Nucleat RBC Rel Count 0.0 (0.00-0.2) % Eos # (Auto) 0.15 (0.04-0.36) x10^3/uL Immature Gran # (Auto) 0.05 H (0.001-0.031) x10^3u/L Absolute Lymphs (auto) 1.97 (1.18-3.74) x10^3/uL Absolute Monos (auto) 0.41 (0.24-0.86) x10^3/uL Absolute Nucleated RBC 0.00 (0.00-0.012) x10^3u/L Lymphocytes % 19.5 (19.3-51.7) % Monocytes % 4.1 L (4.7-12.5) % Eosinophils % 1.5 (0.7-5.8) % Basophils % 0.5 (0.1-1.2) % Absolute Granulocytes 7.49 H (1.56-6.13) x10^3/uL Basophils # 0.05 (0.01-0.08) x10^3/uL Sodium 134 L (135-145) mmol/L Potassium 3.5 (3.5-5.1) mmol/L Chloride 105 (98-107) mmol/L Carbon Dioxide 17 L (22-30) mmol/L Anion Gap 15.3 H (5-15) MEQ/L BUN 7 (7-17) mg/dL Creatinine 0.58 (0.52-1.04) mg/dL Estimated GFR 120.2 ML/MIN Glucose 134 H (74-106) mg/dL Calcium 9.1 (8.4-10.2) mg/dL Total Bilirubin 0.30 (0.2-1.3) mg/dL AST 26 (14-36) U/L ALT 31 (0-35) U/L Alkaline Phosphatase 59 (38-126) U/L Serum Total Protein 7.2 (6.3-8.2) g/dL Albumin 4.1 (3.5-5.0) g/dL Beta HCG, Quant 52731 mIU/ml Urine Color (Yellow) Urine Appearance (Clear) Urine pH (4.6-8.0) Ur Specific [place] (1.005-1.030) Urine Protein (Negative) Urine Glucose (UA) (Negative) mg/dL Urine Ketones (Negative) Urine Blood (Negative) Urine Nitrite (Negative) Urine Bilirubin (Negative) Urine Urobilinogen (0.2) mg/dL Ur Leukocyte Esterase (Negative) U Hyaline Cast (Auto) (0-2) /LPF Urine Microscopic RBC (0-5) /HPF Urine Microscopic WBC (0-5) /HPF Ur Epithelial Cells (None Seen) /HPF Urine Bacteria (None Seen) /HPF Urine Culture Reflexed (NO) Urine HCG, Qual (NEGATIVE) ABO Group A Rh Factor POSITIVE Antibody Screen NEGATIVE (NEGATIVE) 03/13/24 03/13/24 Range/Units 10:35 10:35 WBC (3.98-10.04) x10^3/uL RBC (3.93-5.22) x10^6/uL Hgb (11.2-15.7) g/dL Hct (34.1-44.9) % MCV (79.4-94.8) fL MCH (25.6-32.2) pg MCHC (32.2-35.5) g/dL RDW (11.7-14.4) % Plt Count (182-369) x10^3/uL MPV (9.4-12.3) fL Gran % (34.0-71.1) % Immature Gran % (Auto) (0.001-0.429) % Nucleat RBC Rel Count (0.00-0.2) % Eos # (Auto) (0.04-0.36) x10^3/uL Immature Gran # (Auto) (0.001-0.031) x10^3u/L Absolute Lymphs (auto) (1.18-3.74) x10^3/uL Absolute Monos (auto) (0.24-0.86) x10^3/uL Absolute Nucleated RBC (0.00-0.012) x10^3u/L Lymphocytes % (19.3-51.7) % Monocytes % (4.7-12.5) % Eosinophils % (0.7-5.8) % Basophils % (0.1-1.2) % Absolute Granulocytes (1.56-6.13) x10^3/uL Basophils # (0.01-0.08) x10^3/uL Sodium (135-145) mmol/L Potassium (3.5-5.1) mmol/L Chloride (98-107) mmol/L Carbon Dioxide (22-30) mmol/L Anion Gap (5-15) MEQ/L BUN (7-17) mg/dL Creatinine (0.52-1.04) mg/dL Estimated GFR ML/MIN Glucose (74-106) mg/dL Calcium (8.4-10.2) mg/dL Total Bilirubin (0.2-1.3) mg/dL AST (14-36) U/L ALT (0-35) U/L Alkaline Phosphatase (38-126) U/L Serum Total Protein (6.3-8.2) g/dL Albumin (3.5-5.0) g/dL Beta HCG, Quant mIU/ml Urine Color Yellow (Yellow) Urine Appearance Cloudy A (Clear) Urine pH 6.0 (4.6-8.0) Ur Specific [place] 1.025 (1.005-1.030) Urine Protein Trace A (Negative) Urine Glucose (UA) Negative (Negative) mg/dL Urine Ketones Trace A (Negative) Urine Blood Negative (Negative) Urine Nitrite Negative (Negative) Urine Bilirubin Negative (Negative) Urine Urobilinogen 0.2 (0.2) mg/dL Ur Leukocyte Esterase Moderate A (Negative) U Hyaline Cast (Auto) NONE SEEN (0-2) /LPF Urine Microscopic RBC 6-10 A (0-5) /HPF Urine Microscopic WBC 21-50 A (0-5) /HPF Ur Epithelial Cells Moderate A (None Seen) /HPF Urine Bacteria Moderate A (None Seen) /HPF Urine Culture Reflexed YES (NO) Urine HCG, Qual POSITIVE (NEGATIVE) ABO Group Rh Factor Antibody Screen (NEGATIVE) - Progress Progress: improved, re-examined Air Movement: good Progress Note: 03/13/24 15:27 38 years old 2 para 1 is evaluated in the ER with a positive home test and pelvic/abdominal cramping with some low back pain. Patient is given fluids, workup showed white count of 10, stable H&H. Chemistries fairly unremarkable. Does have UTI and given a dose of Rocephin. She has Rh+ blood group. Ultrasound per preliminary report showed 7.5 weeks IUP with no subchorionic bleed or any other acute abnormality. Official report is pending. I have shared the results of workup with patient, will continue with oral antibiotics, continue with vitamins and outpatient OB appointment. Discussed signs symptoms of worsening needing return to ER which she seems understanding. Stable for discharge. Blood Culture(s) Obtained: No Antibiotics given: Yes Counseled pt/family regarding: lab results, diagnosis, need for follow-up, rad results Medical Desision Making - Diagnostic Testing Diagnostic test were ordered, analyzed, and reviewed by me: Yes Radiological Interpretation: Interpreted by me, Reviewed by me - Risk of complications The pt has a mod risk of morbidity or mortality based on: Need for prescription drug management - Departure Departure Disposition: Home Clinical Impression: UTI in , Cramping affecting , antepartum Condition: Stable Critical Care Time: No Referrals: KATHLEEN RHODES [Primary Care Provider] - Follow up with PCP 1 day PATRICIA GRAHAM DO [ACTIVE STAFF] - Follow up/PCP as directed (Call for appointment for reevaluation.) Instructions: Stomach Pain in Early , Urinary tract infections in Additional Instructions: Drink plenty of fluids. Take Tylenol/Zofran as needed. Follow-up with primary care/OB for reevaluation. Return to ER for worsening cramping or if having vaginal bleeding discharge/intractable nausea vomiting etc. Prescriptions: Cephalexin Mh 500 mg [Keflex 500 mg] 500 mg PO TID #21 cap Ondansetron ODT 4 MG [Zofran Odt 4 mg] 1 ea PO QIDPRN PRN #14 tablet PRN Reason: n/v
[2024-03-13 15:33] VITALS: BP 116/76; PULSE 77
--- NOTE | 2024-03-13 19:35 | XRAY ---
Indication: Pelvic pain. Two-dimensional transabdominal early OB ultrasound performed. Comparison: None Single intrauterine gestational sac with signal pole. Mean crown-rump length is 1.42 cm corresponding to 7 weeks 5 days. heart rate 138 bpm. Tiny 1.1 x 0.6 x 0.9 cm subchorionic hemorrhage. Left and right ovaries are sonographically unremarkable. No suspicious adnexal mass or free fluid. Impression: Single viable intrauterine measuring 7 weeks 5 days. Expected date confinement is October 25, 2024. Tiny subchorionic hemorrhage. Comment: Preliminary report was given.
== END 2024-03-13 15:43 | disposition home or self-care (01) ==
LOC: ED 10:19
DX: O23.41 Unspecified infection of urinary tract in pregnancy, first trimester (principal); N39.0 Urinary tract infection, site not specified; R10.9 Unspecified abdominal pain; M54.50 Low back pain, unspecified; Z3A.01 Less than 8 weeks gestation of pregnancy
CPT/HCPCS: 36000; 36415; 76801; 80053; 81001; 81025; 84702; 85025; 86850; 86900; 86901; 87086; 96365; 99284; J0696

== ENCOUNTER 2024-04-13 19:28 | Emergency (ER) | payer SELFPAY ==
[2024-04-13 19:54] VITALS: RESP 18; TEMP 96.8
[2024-04-13 20:36] LABS: Appearance Clear (Clear); Bacteria Moderate /HPF (None Seen); Bilirubin Negative (Negative); Blood Negative (Negative); Epithelial Cells Moderate /HPF (None Seen); Glucose, Urine Negative (Negative); Hyaline Casts NONE SEEN /LPF (0-2); Ketones Negative (Negative); Leukocyte Esterase Small (Negative); Nitrite Negative (Negative); Ph 6.5 (4.6-8.0); Protein,Urine Dip Trace (Negative); RBC 0-2 /HPF (0-5); Urobilinogen 0.2 mg/dL (0.2)
[2024-04-13] MEDS ORDERED: Pepcid 20 MG ONE (20:36)
[2024-04-13] MEDS: Pepcid 20 MG PO ONE (20:36)
[2024-04-13 21:09] VITALS: BP 103/81; PULSE 96; O2SAT 98
[2024-04-13] MEDS ORDERED: KEFLEX 250 MG ONE (21:11)
[2024-04-13] MEDS: KEFLEX 250 MG PO ONE (21:12)
--- NOTE | 2024-04-13 21:15 | ERPHSYRPT ---
- History of Present Illness Time Seen by Provider: 04/13/24 19:45 Historian: patient Exam Limitations: no limitations Patient Subjective Stated Complaint: pt states that she has been having cramping with this . pt states that it is worse today Triage Nursing Assessment: pt ambulated into the er; pt is axo x4; c/o abd cramping; pt states 7/10 pain to upper abd; pt is 12 wks ; FHT 165 bpm; abd soft, round; last bm 04/13; pt denies vomiting; skin PDW; tachycardic Physician History: 38yo at roughly 12wks EGA by LMP presents via private vehicle for epigastric cramping. Pt reports this started earlier today after eating dinner. Pt reports the pain does not radiate. Pt denies any lower abdominal cramping or vaginal bleeding. Pt reports she has not yet established OBGYN care 2/2 insurance issues. Pt reports hx of acid reflux. Pt denies any vomiting, hematamesis, hematochezia. Timing/Duration: today Activities at Onset: none Quality: cramping Abdominal Pain Onset Location: epigastric Pain Radiation: no radiation Severity of Pain-Max: mild Severity of Pain-Current: mild Modifying Factors: Improves With: nothing Associated Symptoms: heartburn, No back, No chest pain, No fever/chills, No shortness of breath Previous symptoms: same symptoms as today Allergies/Adverse Reactions: paroxetine [From Paxil] Allergy (Verified 04/13/24 19:43) Home Medications: Pnv No.95/Ferrous Fum/Folic AC [ Caplet] 1 cap PO DAILY 03/13/24 [History] Hx Tetanus, Diphtheria Vaccination/Date Given: Yes Hx Influenza Vaccination/Date Given: No Hx Pneumococcal Vaccination/Date Given: No Immunizations Up to Date: No Travel Risk - International Travel Have you traveled outside of the country in past 3 weeks: No - Emerging Infectious Disease Are you exhibiting symptoms associated with any current EIDs: Yes Symptoms: Abdominal Pain - Review of Systems Constitutional: No Fever, No Chills Respiratory: No Symptoms Cardiac: No Symptoms Abdominal/Gastrointestinal: Abdominal Pain, Nausea, No Vomiting, No Diarrhea, No Constipation, No Appetite Changes Genitourinary Symptoms: Dysuria, No Frequency, No Hematuria, No Hesitancy, No Incontinence - Past Medical History Pertinent Past Medical History: Yes Neurological History: No Pertinent History ENT History: No Pertinent History Cardiac History: No Pertinent History Respiratory History: No Pertinent History Endocrine Medical History: No Pertinent History Musculoskeletal History: No Pertinent History GI Medical History: Gallbladder Disease History: No Pertinent History Psycho-Social History: No Pertinent History Female Reproductive Disorders: Menstrual Problems Other Medical History: irregular periods, kidney stones - Past Surgical History Past Surgical History: Yes Neuro Surgical History: No Pertinent History Cardiac: No Pertinent History Respiratory: No Pertinent History Gastrointestinal: Cholecystectomy Genitourinary: No Pertinent History Musculoskeletal: No Pertinent History Female Surgical History: No Pertinent History - Female History Hx Last Menstrual Period: 01/20/24 Hx Now: Yes Gestational Age: 12 weeks - Social History Smoking Status: Former smoker How long have you smoked: 11 years Exposure to second hand smoke: Yes Drug Use: none Patient Lives Alone: Yes - Social Determinants of Health Will the patient participate in the screening: Yes Do you worry about a steady place to live?: No Do you have any problems with any of the following?: No known problems In the past 12 months,have you had to go without utilities?: No Transportation Issues: No Has anyone in your support network made you feel unsafe?: No Have you or anyone in your house had to go without enough: No - Nursing Vital Signs Nursing Vital Signs: Initial Vital Signs Pulse Rate 111 H 04/13/24 19:38 Blood Pressure 129/83 04/13/24 19:38 O2 Sat by Pulse Oximetry 98 04/13/24 19:38 Pain Scale Pain Intensity 7 - Physical Exam General Appearance: no apparent distress, alert Respiratory Exam: normal breath sounds, lungs clear, airway intact, No respiratory distress Cardiovascular Exam: regular rate/rhythm, normal heart sounds Gastrointestinal/Abdomen Exam: soft, normal bowel sounds, tenderness (minimal epigastric TTP ), No distention, No guarding, No rebound Pelvic Exam: not done SpO2 Interpretation: normal SpO2: 98 O2 Delivery: Room Air Comments: 04/13/24 21:34 FHR - 160 Ordered Tests: Active Orders 24 hr Category Date Time Status CULTURE,URINE Stat Lab 04/13/24 20:18 Received UA W/RFX UR CULTURE Stat Lab 04/13/24 20:18 Completed Medication Summary Discontinued Medications Generic Name Dose Route Start Last Admin Trade Name Freq PRN Reason Stop Dose Admin Famotidine 20 mg 04/13/24 20:32 04/13/24 20:36 Famotidine 20 Mg Tablet PO 04/13/24 20:33 20 mg STAT ONE Administration Famotidine Confirm 04/13/24 20:36 Famotidine 20 Mg Tablet Administered 04/13/24 20:37 Dose 20 mg .ROUTE .STK-MED ONE Lab/Rad Data: Laboratory Results 04/13/24 Range/Units 20:18 Urine Color Yellow (Yellow) Urine Appearance Clear (Clear) Urine pH 6.5 (4.6-8.0) Ur Specific [place] 1.020 (1.005-1.030) Urine Protein Trace A (Negative) Urine Glucose (UA) Negative (Negative) mg/dL Urine Ketones Negative (Negative) Urine Blood Negative (Negative) Urine Nitrite Negative (Negative) Urine Bilirubin Negative (Negative) Urine Urobilinogen 0.2 (0.2) mg/dL Ur Leukocyte Esterase Small A (Negative) U Hyaline Cast (Auto) NONE SEEN (0-2) /LPF Urine Microscopic RBC 0-2 (0-5) /HPF Urine Microscopic WBC 6-10 A (0-5) /HPF Ur Epithelial Cells Moderate A (None Seen) /HPF Urine Bacteria Moderate A (None Seen) /HPF Urine Culture Reflexed YES (NO) - Progress Progress: improved Progress Note: 04/13/24 21:14 improved w/ dose of famotidine UTI found on UA, will start keflex Medical Desision Making - Diagnostic Testing Diagnostic test were ordered, analyzed, and reviewed by me: Yes - Risk of complications Minimal Risk: Minimal risk of morbidity - Departure Departure Disposition: Home Clinical Impression: UTI (urinary tract infection) Qualifiers: Urinary tract infection type: acute cystitis Hematuria presence: without hematuria Qualified Code(s): N30.00 - Acute cystitis without hematuria GERD (gastroesophageal reflux disease) Qualifiers: Esophagitis presence: esophagitis presence not specified Qualified Code(s): K21.9 - Gastro-esophageal reflux disease without esophagitis Condition: Stable Critical Care Time: No Referrals: KATHLEEN RHODES [Primary Care Provider] - Follow up/PCP as directed Additional Instructions: complete 5 day course of cephalexin can take otc pepcid daily for acid reflux symptoms need to establish w/ OBGYN provider josefina, recommend calling Dr Graham's office this week regardless of insurance status return to ED if: develop vaginal bleeding or lower abdominal cramping, develop chest pain, develop shortness of breath, develop bloody vomiting or diarrhea Prescriptions: Cephalexin Mh 250 mg [Keflex 250 mg] 250 mg PO Q6H 5 Days #20 cap
== END 2024-04-13 21:30 | disposition home or self-care (01) ==
LOC: ED 19:28
DX: O23.11 Infections of bladder in pregnancy, first trimester (principal); N30.00 Acute cystitis without hematuria; Z3A.12 12 weeks gestation of pregnancy; K21.9 Gastro-esophageal reflux disease without esophagitis; R10.13 Epigastric pain
CPT/HCPCS: 81001; 87086; 99283; A9270-GY

== ENCOUNTER 2024-05-07 16:56 | Emergency (ER) | payer MEDICAID ==
--- NOTE | 2024-05-07 17:21 | ERPHSYRPT ---
- History of Present Illness Time Seen by Provider: 05/07/24 17:18 Source: patient Exam Limitations: no limitations Physician History: 38-year-old female M1 currently 15 weeks presents to our ED for evaluation of vaginal bleeding. Patient reports that she is high risk secondary to age. Patient states she was having a bowel movement today when she passed a vaginal blood clot. Patient denies active bleeding at this time. Patient's [employer] physician is . No active pain at this time. No nausea no vomiting no trauma no fever. Symptoms are mild to moderate in intensity. No specific worsening or improving factors. Patient otherwise feels well. She voices no other complaints or concerns at this time. Portions of this note were created with voice recognition technology. There may be grammatical, spelling, punctuation or sound alike errors Timing/Duration: today Severity: moderate Modifying Factors: Improves With: nothing Associated Symptoms: denies symptoms Allergies/Adverse Reactions: paroxetine [From Paxil] Allergy (Verified 05/07/24 17:09) Home Medications: Pnv No.95/Ferrous Fum/Folic AC [ Caplet] 1 cap PO DAILY 03/13/24 [History] Hx Tetanus, Diphtheria Vaccination/Date Given: Yes Hx Influenza Vaccination/Date Given: No Hx Pneumococcal Vaccination/Date Given: No Travel Risk - Emerging Infectious Disease Are you exhibiting symptoms associated with any current EIDs: Yes Symptoms: Abdominal Pain - Review of Systems Constitutional: No Symptoms, No Fever, No Chills Eyes: No Symptoms Ears, Nose, & Throat: No Symptoms Respiratory: No Symptoms, No Cough, No Dyspnea Cardiac: No Symptoms, No Chest Pain, No Edema, No Syncope Abdominal/Gastrointestinal: No Symptoms, No Abdominal Pain, No Nausea, No Vomiting, No Diarrhea Genitourinary Symptoms: No Symptoms, No Dysuria Musculoskeletal: No Symptoms, No Back Pain, No Neck Pain Skin: No Symptoms, No Rash Neurological: No Symptoms, No Dizziness, No Focal Weakness, No Sensory Changes Psychological: No Symptoms Endocrine: No Symptoms Hematologic/Lymphatic: No Symptoms Immunological/Allergic: No Symptoms All Other Systems: Reviewed and Negative - Past Medical History Pertinent Past Medical History: Yes Neurological History: No Pertinent History ENT History: No Pertinent History Cardiac History: No Pertinent History Respiratory History: No Pertinent History Endocrine Medical History: No Pertinent History Musculoskeletal History: No Pertinent History GI Medical History: Gallbladder Disease History: No Pertinent History Psycho-Social History: No Pertinent History Female Reproductive Disorders: Menstrual Problems Other Medical History: irregular periods, kidney stones - Past Surgical History Past Surgical History: Yes Neuro Surgical History: No Pertinent History Cardiac: No Pertinent History Respiratory: No Pertinent History Gastrointestinal: Cholecystectomy Genitourinary: No Pertinent History Musculoskeletal: No Pertinent History Female Surgical History: No Pertinent History - Female History Hx Last Menstrual Period: 01/20/24 Hx Now: Yes - Social History Smoking Status: Former smoker How long have you smoked: 11 years Exposure to second hand smoke: Yes Drug Use: none Patient Lives Alone: Yes - Social Determinants of Health Will the patient participate in the screening: Yes Do you worry about a steady place to live?: No In the past 12 months,have you had to go without utilities?: No Transportation Issues: No Has anyone in your support network made you feel unsafe?: No Have you or anyone in your house had to go without enough: No - Nursing Vital Signs Nursing Vital Signs: Initial Vital Signs Pulse Rate 91 H 05/07/24 17:08 Respiratory Rate 18 05/07/24 17:08 Blood Pressure 135/90 05/07/24 17:08 O2 Sat by Pulse Oximetry 99 05/07/24 17:08 Pain Scale Pain Intensity 0 - Physical Exam General Appearance: no apparent distress, alert Eye Exam: PERRL/EOMI, eyes nml inspection Ears, Nose, Throat Exam: normal ENT inspection, pharynx normal, moist mucous membranes Neck Exam: normal inspection, non-tender, supple, full range of motion Respiratory Exam: normal breath sounds, lungs clear, airway intact, No respiratory distress Cardiovascular Exam: regular rate/rhythm, normal heart sounds, normal peripheral pulses Gastrointestinal/Abdomen Exam: soft, normal bowel sounds, No tenderness, No mass Pelvic Exam: normal external exam, No adnexal tenderness, No adnexal mass, No cervical motion tenderness, No vaginal bleeding (Active vaginal bleeding) Back Exam: normal inspection, normal range of motion, No CVA tenderness, No vertebral tenderness Extremity Exam: normal inspection, normal range of motion, pelvis stable Neurologic Exam: alert, oriented x 3, cooperative, normal mood/affect, sensation nml, No motor deficits Skin Exam: normal color, warm, dry, No rash Lymphatic Exam: No adenopathy SpO2 Interpretation: normal SpO2: 99 O2 Delivery: Room Air - Course Nursing assessment & vital signs reviewed: Yes - Radiology Ultrasound Exam OB Ultrasound: tele radiology report (Limited ultrasound for viability and placenta. Single IUP in breech position observed. Placenta is anterior. movement observed with cardiac activity of 164. Cervix is closed measuring 4.8 cm.) Ordered Tests: Active Orders 24 hr Category Date Time Status OB LIMITED [US] Stat Exams 05/07/24 17:16 Taken CBC W DIFF Stat Lab 05/07/24 17:48 Completed CMP Stat Lab 05/07/24 17:48 Completed CULTURE,URINE Stat Lab 05/07/24 17:30 Received HCG, Quantitative (Inhouse) Stat Lab 05/07/24 17:48 Completed UA W/RFX UR CULTURE Stat Lab 05/07/24 17:30 Completed Medication Summary Discontinued Medications Generic Name Dose Route Start Last Admin Trade Name Freq PRN Reason Stop Dose Admin Nitrofurantoin Macrocrystals 100 mg 05/07/24 20:31 05/07/24 20:39 Nitrofurantoin Macro 100 Mg Capsule PO 05/07/24 20:32 100 mg STAT ONE Administration Nitrofurantoin Macrocrystals Confirm 05/07/24 20:38 Nitrofurantoin Macro 100 Mg Capsule Administered 05/07/24 20:39 Dose 100 mg .ROUTE .STYCD Multimedia-MED ONE Lab/Rad Data: Laboratory Result Diagrams 05/07/24 17:48 05/07/24 17:48 Laboratory Results 05/07/24 05/07/24 05/07/24 Range/Units 18:16 18:16 17:48 WBC (3.98-10.04) x10^3/uL RBC (3.93-5.22) x10^6/uL Hgb (11.2-15.7) g/dL Hct (34.1-44.9) % MCV (79.4-94.8) fL MCH (25.6-32.2) pg MCHC (32.2-35.5) g/dL RDW (11.7-14.4) % Plt Count (182-369) x10^3/uL MPV (9.4-12.3) fL Gran % (34.0-71.1) % Immature Gran % (Auto) (0.001-0.429) % Nucleat RBC Rel Count (0.00-0.2) % Eos # (Auto) (0.04-0.36) x10^3/uL Immature Gran # (Auto) (0.001-0.031) x10^3u/L Absolute Lymphs (auto) (1.18-3.74) x10^3/uL Absolute Monos (auto) (0.24-0.86) x10^3/uL Absolute Nucleated RBC (0.00-0.012) x10^3u/L Lymphocytes % (19.3-51.7) % Monocytes % (4.7-12.5) % Eosinophils % (0.7-5.8) % Basophils % (0.1-1.2) % Absolute Granulocytes (1.56-6.13) x10^3/uL Basophils # (0.01-0.08) x10^3/uL Sodium (135-145) mmol/L Potassium (3.5-5.1) mmol/L Chloride (98-107) mmol/L Carbon Dioxide (22-30) mmol/L Anion Gap (5-15) MEQ/L BUN (7-17) mg/dL Creatinine (0.52-1.04) mg/dL Estimated GFR ML/MIN Glucose (74-106) mg/dL Calcium (8.4-10.2) mg/dL Total Bilirubin (0.2-1.3) mg/dL AST (14-36) U/L ALT (0-35) U/L Alkaline Phosphatase (38-126) U/L Serum Total Protein (6.3-8.2) g/dL Albumin (3.5-5.0) g/dL Beta HCG, Quant 73246 mIU/ml Urine Color (Yellow) Urine Appearance (Clear) Urine pH (4.6-8.0) Ur Specific [place] (1.005-1.030) Urine Protein (Negative) Urine Glucose (UA) (Negative) mg/dL Urine Ketones (Negative) Urine Blood (Negative) Urine Nitrite (Negative) Urine Bilirubin (Negative) Urine Urobilinogen (0.2) mg/dL Ur Leukocyte Esterase (Negative) U Hyaline Cast (Auto) (0-2) /LPF Urine Microscopic RBC (0-5) /HPF Urine Microscopic WBC (0-5) /HPF Ur Epithelial Cells (None Seen) /HPF Urine Bacteria (None Seen) /HPF Urine Culture Reflexed (NO) Vaginal Tarsha Group DETECTED A (NEGATIVE) Tarsha species NOT DETECTED (NEGATIVE) Chlamydia DNA Probe NOT DETECTED (NEGATIVE) N.gonorrhoeae DNA Probe NOT DETECTED (NEGATIVE) T. vaginalis (PCR) NOT DETECTED (NEGATIVE) Bact vaginosis (PCR) NEGATIVE (NEGATIVE) ABO Group Rh Factor Antibody Screen (NEGATIVE) 05/07/24 05/07/24 05/07/24 Range/Units 17:48 17:48 17:48 WBC 13.7 H (3.98-10.04) x10^3/uL RBC 3.88 L (3.93-5.22) x10^6/uL Hgb 11.1 L (11.2-15.7) g/dL Hct 33.2 L (34.1-44.9) % MCV 85.6 (79.4-94.8) fL MCH 28.6 (25.6-32.2) pg MCHC 33.4 (32.2-35.5) g/dL RDW 13.9 (11.7-14.4) % Plt Count 263 (182-369) x10^3/uL MPV 11.5 (9.4-12.3) fL Gran % 78.9 H (34.0-71.1) % Immature Gran % (Auto) 0.6 H (0.001-0.429) % Nucleat RBC Rel Count 0.0 (0.00-0.2) % Eos # (Auto) 0.15 (0.04-0.36) x10^3/uL Immature Gran # (Auto) 0.08 H (0.001-0.031) x10^3u/L Absolute Lymphs (auto) 2.10 (1.18-3.74) x10^3/uL Absolute Monos (auto) 0.51 (0.24-0.86) x10^3/uL Absolute Nucleated RBC 0.00 (0.00-0.012) x10^3u/L Lymphocytes % 15.4 L (19.3-51.7) % Monocytes % 3.7 L (4.7-12.5) % Eosinophils % 1.1 (0.7-5.8) % Basophils % 0.3 (0.1-1.2) % Absolute Granulocytes 10.79 H (1.56-6.13) x10^3/uL Basophils # 0.04 (0.01-0.08) x10^3/uL Sodium 136 (135-145) mmol/L Potassium 3.6 (3.5-5.1) mmol/L Chloride 105 (98-107) mmol/L Carbon Dioxide 18 L (22-30) mmol/L Anion Gap 16.7 H (5-15) MEQ/L BUN 8 (7-17) mg/dL Creatinine 0.53 (0.52-1.04) mg/dL Estimated GFR 122.8 ML/MIN Glucose 127 H (74-106) mg/dL Calcium 9.3 (8.4-10.2) mg/dL Total Bilirubin 0.20 (0.2-1.3) mg/dL AST 23 (14-36) U/L ALT 26 (0-35) U/L Alkaline Phosphatase 55 (38-126) U/L Serum Total Protein 6.9 (6.3-8.2) g/dL Albumin 3.7 (3.5-5.0) g/dL Beta HCG, Quant mIU/ml Urine Color (Yellow) Urine Appearance (Clear) Urine pH (4.6-8.0) Ur Specific [place] (1.005-1.030) Urine Protein (Negative) Urine Glucose (UA) (Negative) mg/dL Urine Ketones (Negative) Urine Blood (Negative) Urine Nitrite (Negative) Urine Bilirubin (Negative) Urine Urobilinogen (0.2) mg/dL Ur Leukocyte Esterase (Negative) U Hyaline Cast (Auto) (0-2) /LPF Urine Microscopic RBC (0-5) /HPF Urine Microscopic WBC (0-5) /HPF Ur Epithelial Cells (None Seen) /HPF Urine Bacteria (None Seen) /HPF Urine Culture Reflexed (NO) Vaginal Tarsha Group (NEGATIVE) Tarsha species (NEGATIVE) Chlamydia DNA Probe (NEGATIVE) N.gonorrhoeae DNA Probe (NEGATIVE) T. vaginalis (PCR) (NEGATIVE) Bact vaginosis (PCR) (NEGATIVE) ABO Group A Rh Factor POSITIVE Antibody Screen NEGATIVE (NEGATIVE) 05/07/24 Range/Units 17:30 WBC (3.98-10.04) x10^3/uL RBC (3.93-5.22) x10^6/uL Hgb (11.2-15.7) g/dL Hct (34.1-44.9) % MCV (79.4-94.8) fL MCH (25.6-32.2) pg MCHC (32.2-35.5) g/dL RDW (11.7-14.4) % Plt Count (182-369) x10^3/uL MPV (9.4-12.3) fL Gran % (34.0-71.1) % Immature Gran % (Auto) (0.001-0.429) % Nucleat RBC Rel Count (0.00-0.2) % Eos # (Auto) (0.04-0.36) x10^3/uL Immature Gran # (Auto) (0.001-0.031) x10^3u/L Absolute Lymphs (auto) (1.18-3.74) x10^3/uL Absolute Monos (auto) (0.24-0.86) x10^3/uL Absolute Nucleated RBC (0.00-0.012) x10^3u/L Lymphocytes % (19.3-51.7) % Monocytes % (4.7-12.5) % Eosinophils % (0.7-5.8) % Basophils % (0.1-1.2) % Absolute Granulocytes (1.56-6.13) x10^3/uL Basophils # (0.01-0.08) x10^3/uL Sodium (135-145) mmol/L Potassium (3.5-5.1) mmol/L Chloride (98-107) mmol/L Carbon Dioxide (22-30) mmol/L Anion Gap (5-15) MEQ/L BUN (7-17) mg/dL Creatinine (0.52-1.04) mg/dL Estimated GFR ML/MIN Glucose (74-106) mg/dL Calcium (8.4-10.2) mg/dL Total Bilirubin (0.2-1.3) mg/dL AST (14-36) U/L ALT (0-35) U/L Alkaline Phosphatase (38-126) U/L Serum Total Protein (6.3-8.2) g/dL Albumin (3.5-5.0) g/dL Beta HCG, Quant mIU/ml Urine Color Dark Yellow A (Yellow) Urine Appearance Cloudy A (Clear) Urine pH 5.5 (4.6-8.0) Ur Specific [place] >=1.030 A (1.005-1.030) Urine Protein 30 (Negative) Urine Glucose (UA) Negative (Negative) mg/dL Urine Ketones 40 A (Negative) Urine Blood Large A (Negative) Urine Nitrite Negative (Negative) Urine Bilirubin Small A (Negative) Urine Urobilinogen 1.0 A (0.2) mg/dL Ur Leukocyte Esterase Moderate A (Negative) U Hyaline Cast (Auto) None Seen (0-2) /LPF Urine Microscopic RBC 3-5 (0-5) /HPF Urine Microscopic WBC 3-5 (0-5) /HPF Ur Epithelial Cells Moderate A (None Seen) /HPF Urine Bacteria Few A (None Seen) /HPF Urine Culture Reflexed YES (NO) Vaginal Tarsha Group (NEGATIVE) Tarsha species (NEGATIVE) Chlamydia DNA Probe (NEGATIVE) N.gonorrhoeae DNA Probe (NEGATIVE) T. vaginalis (PCR) (NEGATIVE) Bact vaginosis (PCR) (NEGATIVE) ABO Group Rh Factor Antibody Screen (NEGATIVE) - Progress Progress: improved Progress Note: 38-year-old female presents to our ED for evaluation of vaginal spotting. Pelvic exam nonremarkable. Physical exam nonremarkable. Ultrasound shows viable IUP. UA reveals a UTI. Patient received a dose of Macrobid in our ED. A prescription for Macrobid forwarded to patient's pharmacy. Vaginal panel reveals Tarsha. I spoke to patient's [employer] physician who advises Is All Vaginal Cream. 7-Day Course Prescribed. Patient to Follow-Up with Her [employer] Physician within 48 Hours for Reevaluation. Patient advised of the results. She is resting comfortably no indication for further workup will discharge home. Significant other at bedside. They voiced no other complaints or concerns at this time. Portions of this note were created with voice recognition technology. There may be grammatical, spelling, punctuation or sound alike errors Complexity of problem addressed is moderate acute complicated no critical care time. Complex of data reviewed and analyzed is extensive. Management discussed with her [employer] physician. Test ordered chest reviewed results analyzed and correlated clinically with history and physical exam. Risk of complication at or risk of morbidity/mortality of patient management is moderate. A prescription for Macrobid and terconazole vaginal cream forwarded to patient's pharmacy. Vital stable. Time spent to discharge patient is approximately 10 minutes. Plan of care established for shared decision making. No social determinants of health present to impede follow-up. Portions of this note were created with voice recognition technology. There may be grammatical, spelling, punctuation or sound alike errors 05/07/24 20:44 Counseled pt/family regarding: lab results, diagnosis, need for follow-up, rad results - Departure Departure Disposition: Home Clinical Impression: Vaginal bleeding during , Vaginal candidiasis, UTI (urinary tract infection) Condition: Stable Critical Care Time: No Referrals: KATHLEEN RHODES [ACTIVE STAFF] - Follow up/PCP as directed Additional Instructions: Discharge/Care Plan EVELINE JENKINS was seen on 05/07/24 in the Emergency Room. The patient was counseled regarding Diagnosis,Lab results, Imaging studies, need for follow up and when to return to the Emergency Room. Prescriptions given: Discharge Note I have spoken with the patient and/or caregivers. I have explained the patient's condition, diagnosis and treatment plan based on the information available to me at this time. I have answered the patient's and/or caregiver's questions and addressed any concerns. The patient and/or caregivers have as good understanding of the patient's diagnosis, condition and treatment plan as can be expected at this point. The vital signs have been stable. The patient's condition is stable and appropriate for discharge from the emergency department. The patient will pursue further outpatient evaluation with the primary care physician or other designated or consulting physician as outlined in the discharge instructions. The patient and/or caregivers are agreeable to this plan of care and follow-up instructions have been explained in detail. The patient and/or caregivers have received these instruction. The patient/and or caregivers are aware that any significant change in condition or worsening of symptoms should prompt an immediate return to this or the closest emergency department or call 911. Prescriptions: Terconazole Vaginal 45 gm [Terazol 7 VAGINAL] 5 gm VG DAILY 7 Days #35 unit
[2024-05-07 17:30] VITALS: TEMP 98.6
[2024-05-07 18:01] LABS: Absolute Neutrophil Ct (ANC) 10.79 x10^3/uL (1.56-6.13); BASOPHIL % 0.3 % (0.1-1.2); Basophil (Absolute #) 0.04 x10^3/uL (0.01-0.08); Eosinophil % 1.1 % (0.7-5.8); Eosinophil (Absolute #) 0.15 x10^3/uL (0.04-0.36); Hematocrit 33.2 % (34.1-44.9); Hemoglobin 11.1 g/dL (11.2-15.7); IMMATURE GRAN # 0.08 x10^3u/L (0.001-0.031); IMMATURE GRAN % 0.6 % (0.001-0.429); Lymphocytes % 15.4 % (19.3-51.7); Mean Cell Volume 85.6 fL (79.4-94.8); Mean Corpuscular Hemoglobin 28.6 pg (25.6-32.2); Mean Corpuscular Hgb Concent. 33.4 g/dL (32.2-35.5); Mean Platelet Volume 11.5 fL (9.4-12.3); Monocyte (Absolute #) 0.51 x10^3/uL (0.24-0.86); Monocytes % 3.7 % (4.7-12.5); Neutrophil % 78.9 % (34.0-71.1); Platelet Count 263 x10^3/uL (182-369); Red Blood Count 3.88 x10^6/uL (3.93-5.22); Red Cell Distribution Width 13.9 % (11.7-14.4); White Blood Count 13.7 x10^3/uL (3.98-10.04)
[2024-05-07 18:15] LABS: ALBUMIN 3.7 g/dL (3.5-5.0); ANION GAP 16.7 MEQ/L (5-15); BILIRUBIN,TOTAL 0.2 mg/dL (0.2-1.3); Calcium 9.3 mg/dL (8.4-10.2); Creatinine 1 0.53 mg/dL (0.52-1.04); EST GLOMERULAR FILTRATION RATE 122.8 ML/MIN; Potassium 3.6 mmol/L (3.5-5.1); Total Protein 6.9 g/dL (6.3-8.2)
[2024-05-07 18:38] LABS: Appearance Cloudy (Clear); Bilirubin Small (Negative); Blood Large (Negative); Epithelial Cells Moderate /HPF (None Seen); Glucose, Urine Negative (Negative); Ketones 40 (Negative); Leukocyte Esterase Moderate (Negative); Nitrite Negative (Negative); Ph 5.5 (4.6-8.0); Protein,Urine Dip 30 (Negative); Specific Gravity >=1.030 (1.005-1.030)
[2024-05-07 18:39] LABS: Bacteria Few /HPF (None Seen); Hyaline Casts None Seen /LPF (0-2)
[2024-05-07 18:48] LABS: ABO TYPING A; Antibody Screen NEGATIVE (NEGATIVE); RH TYPING POSITIVE
[2024-05-07 19:18] LABS: Candida Group DETECTED (NEGATIVE); Candida glab/krus NOT DETECTED (NEGATIVE)
[2024-05-07 19:49] LABS: CHLAMYDIA DNA NOT DETECTED (NEGATIVE); GC DNA Probe NOT DETECTED (NEGATIVE)
[2024-05-07 20:02] VITALS: BP 112/92; PULSE 97; RESP 16; O2SAT 99
[2024-05-07] MEDS ORDERED: Macrobid 100MG Capsule ONE (20:38)
[2024-05-07] MEDS: Macrobid 100MG Capsule PO ONE (20:39)
--- NOTE | 2024-05-08 08:42 | XRAY ---
Indication: Vaginal bleeding. Two-dimensional limited OB ultrasound performed. Comparison: March 13, 2024 Again single viable intrauterine currently in breech presentation. heart rate 164 bpm. Anterior placenta without abnormal retroplacental fluid. Closed cervix with cervical length 4.9 cm. Comment: Preliminary report was given.
== END 2024-05-07 20:51 | disposition home or self-care (01) ==
LOC: ED 16:56
DX: O98.812 Other maternal infectious and parasitic diseases complicating pregnancy, second trimester (principal); O20.9 Hemorrhage in early pregnancy, unspecified; O23.42 Unspecified infection of urinary tract in pregnancy, second trimester; O09.522 Supervision of elderly multigravida, second trimester; N39.0 Urinary tract infection, site not specified; B37.31 Acute candidiasis of vulva and vagina; Z3A.15 15 weeks gestation of pregnancy
CPT/HCPCS: 36415; 76815; 80053; 81001; 84702; 85025; 86850; 86900; 86901; 87086; 87481; 87491; 87591; 87661; 87801; 99283; 99284; A9270-GY

== ENCOUNTER 2024-07-29 12:50 | Observation (INO) | payer MEDICAID ==
[2024-07-29 13:59] VITALS: BP 118/69; PULSE 97; RESP 16; TEMP 97.4; O2SAT 97
[2024-07-29 14:02] LABS: Appearance Cloudy (Clear); Bacteria Many /HPF (None Seen); Bilirubin Negative (Negative); Blood Negative (Negative); Glucose, Urine 250 mg/dL (Negative); Ketones Negative (Negative); Leukocyte Esterase Small (Negative); Nitrite Negative (Negative); Protein,Urine Dip Trace (Negative); RBC 0-2 /HPF (0-5); Specific Gravity 1.025 (1.005-1.030); Urobilinogen 0.2 mg/dL (0.2)
[2024-07-29 14:03] LABS: Epithelial Cells Moderate /HPF (None Seen); Hyaline Casts None Seen /LPF (0-2)
== END 2024-07-29 14:25 | disposition home or self-care (01) ==
LOC: OB 12:50
PROVIDERS: ADMIT Obstetrics & Gynecology; ATTEND Obstetrics & Gynecology
DX: Z34.82 Encounter for supervision of other normal pregnancy, second trimester (principal); Z3A.27 27 weeks gestation of pregnancy
CPT/HCPCS: 81001; 87086; G0378; G0379

== ENCOUNTER 2024-09-14 18:08 | Observation (INO) | payer MEDICAID ==
[2024-09-14 18:56] LABS: Absolute Neutrophil Ct (ANC) 6.29 x10^3/uL (1.56-6.13); BASOPHIL % 0.4 % (0.1-1.2); Basophil (Absolute #) 0.03 x10^3/uL (0.01-0.08); Eosinophil % 1.1 % (0.7-5.8); Eosinophil (Absolute #) 0.09 x10^3/uL (0.04-0.36); Hematocrit 32.5 % (34.1-44.9); Hemoglobin 10.8 g/dL (11.2-15.7); IMMATURE GRAN # 0.03 x10^3u/L (0.001-0.031); IMMATURE GRAN % 0.4 % (0.001-0.429); Lymphocyte (Absolute #) 1.42 x10^3/uL (1.18-3.74); Lymphocytes % 17.2 % (19.3-51.7); Mean Cell Volume 84.6 fL (79.4-94.8); Mean Corpuscular Hemoglobin 28.1 pg (25.6-32.2); Mean Corpuscular Hgb Concent. 33.2 g/dL (32.2-35.5); Mean Platelet Volume 11.7 fL (9.4-12.3); Monocyte (Absolute #) 0.39 x10^3/uL (0.24-0.86); Monocytes % 4.7 % (4.7-12.5); Neutrophil % 76.2 % (34.0-71.1); Platelet Count 270 x10^3/uL (182-369); Red Blood Count 3.84 x10^6/uL (3.93-5.22); Red Cell Distribution Width 14.6 % (11.7-14.4); White Blood Count 8.3 x10^3/uL (3.98-10.04)
[2024-09-14] MEDS ORDERED: ROCEPHIN 2 GM/100 ML NACL 2 GM/100 ML IVPB IV ONE (18:58)
[2024-09-14] MEDS: ROCEPHIN 2 GM/100 ML NACL 2 GM/100 ML IVPB IV SCH (19:00)
[2024-09-14 19:07] LABS: Appearance Cloudy (Clear); Bacteria Many /HPF (None Seen); Bilirubin Small (Negative); Blood Moderate (Negative); Epithelial Cells Many /HPF (None Seen); Glucose, Urine Negative (Negative); Hyaline Casts NONE SEEN /LPF (0-2); Ketones 80 (Negative); Leukocyte Esterase Moderate (Negative); Nitrite Negative (Negative); Protein,Urine Dip 30 (Negative); RBC >100 /HPF (0-5); Specific Gravity 1.025 (1.005-1.030); WBC 51-100 /HPF (0-5)
[2024-09-14 19:08] LABS: AMNISURE TEST RESULTS NEGATIVE (NEGATIVE)
[2024-09-14 19:10] LABS: ALBUMIN 3.7 g/dL (3.5-5.0); ANION GAP 15.1 MEQ/L (5-15); BILIRUBIN,TOTAL 0.3 mg/dL (0.2-1.3); Calcium 9.2 mg/dL (8.4-10.2); Creatinine 1 0.48 mg/dL (0.52-1.04); Potassium 3.4 mmol/L (3.5-5.1); Total Protein 6.6 g/dL (6.3-8.2)
[2024-09-14] MEDS ORDERED: Lactated Ringers 1,000 ML IV ONE (19:26)
[2024-09-14] MEDS: Lactated Ringers 1,000 ML IV SCH (19:45)
[2024-09-14] MEDS: TYLENOL EXTRA STRENGTH 500 MG PO PRN (20:06)
[2024-09-14 21:19] LABS: Amphetamine,Urine NEGATIVE (NEGATIVE); Barbiturate,Urine NEGATIVE (NEGATIVE); Benzodiazepine,Urine NEGATIVE (NEGATIVE); Cocaine,Urine NEGATIVE (NEGATIVE); Methadone,Urine NEGATIVE (NEGATIVE); Opiate,Urine NEGATIVE (NEGATIVE); PCP,Urine NEGATIVE (NEGATIVE); THC,Urine NEGATIVE (NEGATIVE)
[2024-09-14] MEDS: Glucophage 500 MG PO SCH (21:51)
[2024-09-14] MEDS: ECOTRIN 81 MG PO SCH (21:51)
[2024-09-14] MEDS: FEOSOL 325 MG PO SCH (21:52)
[2024-09-14] MEDS: Trandate 100 MG PO SCH (21:52)
[2024-09-15 01:25] VITALS: RESP 18; O2SAT 98
[2024-09-15] MEDS ORDERED: Glucophage 500 MG PO SCH (08:00)
[2024-09-15 08:53] VITALS: BP 128/60; PULSE 83; TEMP 98.5
[2024-09-15] MEDS ORDERED: ROCEPHIN 2 GM/100 ML NACL 2 GM/100 ML IVPB IV SCH (22:00)
== END 2024-09-15 09:49 | disposition home or self-care (01) ==
LOC: OB 18:08
PROVIDERS: ADMIT Obstetrics & Gynecology; ATTEND Obstetrics & Gynecology
DX: Z34.83 Encounter for supervision of other normal pregnancy, third trimester (principal); Z3A.34 34 weeks gestation of pregnancy; Z59.10 Inadequate housing, unspecified
CPT/HCPCS: 36415; 80053; 80307; 81001; 82947; 84112; 85025; 87086; G0378; G0379; J0696; A9270-GY

== ENCOUNTER 2024-09-16 20:58 | Observation (INO) | payer MEDICAID ==
[2024-09-16 21:57] LABS: Appearance Cloudy (Clear); Bacteria None Seen /HPF (None Seen); Bilirubin Negative (Negative); Blood Small (Negative); Epithelial Cells Many /HPF (None Seen); Glucose, Urine Negative (Negative); Ketones 80 (Negative); Leukocyte Esterase Small (Negative); Nitrite Negative (Negative); Ph 6.5 (4.6-8.0); Protein,Urine Dip 30 (Negative); Specific Gravity >=1.030 (1.005-1.030); WBC 21-50 /HPF (0-5)
[2024-09-16 22:06] LABS: Amphetamine,Urine NEGATIVE (NEGATIVE); Barbiturate,Urine NEGATIVE (NEGATIVE); Benzodiazepine,Urine NEGATIVE (NEGATIVE); Cocaine,Urine NEGATIVE (NEGATIVE); Methadone,Urine NEGATIVE (NEGATIVE); Opiate,Urine NEGATIVE (NEGATIVE); PCP,Urine NEGATIVE (NEGATIVE); THC,Urine NEGATIVE (NEGATIVE)
[2024-09-16] MEDS: ROCEPHIN 1 GM / 100 ML NaCl 1 GM/100 ML IVPB IV SCH (22:45)
[2024-09-16] MEDS: Lactated Ringers 1,000 ML IV SCH (22:46)
[2024-09-16] MEDS: TYLENOL EXTRA STRENGTH 500 MG PO PRN (23:49)
[2024-09-17 05:40] LABS: BASOPHIL % 0.4 % (0.1-1.2); Basophil (Absolute #) 0.03 x10^3/uL (0.01-0.08); Eosinophil % 0.8 % (0.7-5.8); Eosinophil (Absolute #) 0.07 x10^3/uL (0.04-0.36); Hematocrit 29.5 % (34.1-44.9); Hemoglobin 9.8 g/dL (11.2-15.7); IMMATURE GRAN # 0.04 x10^3u/L (0.001-0.031); IMMATURE GRAN % 0.5 % (0.001-0.429); Lymphocyte (Absolute #) 1.55 x10^3/uL (1.18-3.74); Lymphocytes % 18.1 % (19.3-51.7); Mean Cell Volume 85.8 fL (79.4-94.8); Mean Corpuscular Hemoglobin 28.5 pg (25.6-32.2); Mean Corpuscular Hgb Concent. 33.2 g/dL (32.2-35.5); Mean Platelet Volume 11.6 fL (9.4-12.3); Monocyte (Absolute #) 0.47 x10^3/uL (0.24-0.86); Monocytes % 5.5 % (4.7-12.5); Neutrophil % 74.7 % (34.0-71.1); Platelet Count 192 x10^3/uL (182-369); Red Blood Count 3.44 x10^6/uL (3.93-5.22); Red Cell Distribution Width 14.9 % (11.7-14.4); White Blood Count 8.6 x10^3/uL (3.98-10.04)
[2024-09-17 05:53] LABS: ALBUMIN 3.2 g/dL (3.5-5.0); ANION GAP 13.1 MEQ/L (5-15); BILIRUBIN,TOTAL 0.3 mg/dL (0.2-1.3); Calcium 8.4 mg/dL (8.4-10.2); Creatinine 1 0.53 mg/dL (0.52-1.04); EST GLOMERULAR FILTRATION RATE 122.1 ML/MIN; Potassium 3.2 mmol/L (3.5-5.1); Total Protein 5.8 g/dL (6.3-8.2)
[2024-09-17 08:55] LABS: A-aADO2 -37; ABG HEMOGLOBIN 10.9; ABG POTASSIUM 3.9 (3.5-5.1); ARTERIAL BLD GAS O2 SATURATION 99.7 % (95-100); ARTERIAL BLOOD GAS BASE EXCESS -2.4 (-2.0-2.0); ARTERIAL BLOOD GAS FIO2 21 %; ARTERIAL BLOOD GAS PO2 165 mmHg (75-100); HCO3- 17.1 (22-28); Methhemoglobin 0.5 % (1.4-1.5); paO2 pAO1 1.29
[2024-09-17 08:56] LABS: ARTERIAL BLOOD GAS PCO2 17 mmHg (35-45); ARTERIAL BLOOD GAS pH 7.61 (7.35-7.45); CARBOXYHEMOGLOBIN 12.3 % THgb (0.0-6.9)
[2024-09-17 08:57] LABS: ABG SITE LEFT RADIAL; ALLEN TEST OK? YES
[2024-09-17] MEDS: Klor Con PO SCH (09:23)
--- NOTE | 2024-09-17 10:20 | XRAY ---
Indication: UTI. Two-dimensional renal sonogram performed. Comparison: None Both kidneys normal in reniform shape with normal color perfusion. Right kidney measures 12.6 x 7.0 x 6.0 cm and left measures 10.6 x 4.3 x 5.1 cm. No focal solid/cystic renal mass. Left kidney demonstrates mild hydronephrosis without perinephric fluid. Cortical medullary differentiation preserved. Near empty urinary bladder is unremarkable. Ureteral jets not seen within the allotted exam time. Impression: Mild left hydronephrosis. Query related to current gravid status. Remaining renal sonograms negative.
--- NOTE | 2024-09-17 12:12 | PCM.CONS ---
History of Present Illness - Reason for Consult Chief Complaint: UTI Date of Consultation Date: 09/17/24 Reason for Consult: UTI/ Respiratory Alkalosis Requesting Provider: PATRICIA GRAHAM DO Consulting Provider: MARY BETH CEE NP History of Present Illness: is a 39 year old female with PMHX of kidney stones, gestational DM, 34 weeks , and recent multiple admissions for UTI. She was admitted by Dr. Graham for UTI and started on IVF and IV antibiotic. UC pending. US showed left hydronephrosis. Discussed with Dr. Graham and he advised to continue IVF. K+ 3.2 and replaced with lab trending. Placed on tele. ABG shows resp alkalosis. Pt admits she had had diarrhea daily since starting metformin. Metformin stopped and started Humalog s/s. 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 She denies CP, SOB, abd. pain, N/V. - Review of Systems Constitutional: No Fever, No Chills Eyes: No Symptoms Ears, Nose, & Throat: No Symptoms Respiratory: No Cough, No Short Of Breath Cardiac: No Chest Pain, No Edema, No Syncope Abdominal/Gastrointestinal: Diarrhea (daily- worse after taking metformin), No Abdominal Pain, No Nausea, No Vomiting Genitourinary Symptoms: No Dysuria Musculoskeletal: Back Pain, No Neck Pain Skin: No Rash Neurological: No Dizziness, No Focal Weakness, No Sensory Changes Psychological: No Symptoms Endocrine: No Symptoms Hematologic/Lymphatic: No Symptoms Immunological/Allergic: No Symptoms Medications & Allergies Home Medications: Home Medication List Pnv No.95/Ferrous Fum/Folic AC [ Caplet] 1 cap PO DAILY 03/13/24 [History Confirmed 09/16/24] Aspirin [Ecotrin] 1 tab PO DAILY 07/29/24 [History Confirmed 09/16/24] Ferrous Sulfate [Iron] 325 mg PO DAILY 07/29/24 [History Confirmed 09/16/24] Labetalol HCl 100 mg [Trandate 100 MG] 100 mg PO BID 09/14/24 [History Confirmed 09/16/24] Metformin HCl 500 mg [Glucophage 500 MG] 1,000 mg PO BID 09/14/24 [History Confirmed 09/16/24] Allergies/Adverse Reactions: Allergies Allergy/AdvReac Type Severity Reaction Status Date / Time paroxetine [From Paxil] AdvReac Verified 07/29/24 14:00 - Past Medical History Past Medical History: Yes Neurological History: No Pertinent History ENT History: No Pertinent History Cardiac History: No Pertinent History Respiratory History: No Pertinent History Endocrine Medical History: No Pertinent History Musculoskelatal History: No Pertinent History GI Medical History: Gallbladder Disease History: No Pertinent History Pyscho-Social History: No Pertinent History Reproductive Disorders: Menstrual Problems Comment: irregular periods, kidney stones - Female History Are you now?: Yes - Past Surgical History Past Surgical History: Yes Neuro Surgical History: No Pertinent History Cardiac History: No Pertinent History Respiratory Surgery: No Pertinent History GI Surgical History: Cholecystectomy Genitourinary Surgical Hx: No Pertinent History Musculskeletal Surgical Hx: No Pertinent History Female Surgical History: No Pertinent History - Social History Smoking Status: Former smoker How long have you smoked: 11 years Exposure to second hand smoke: Yes Alcohol: None Drug Use: none - Social Determinants of Health Will the patient participate in the screening: Yes Do you worry about a steady place to live?: No Do you have any problems with any of the following?: Pest (bugs,ants,or mice) In the past 12 months,have you had to go without utilities?: No Have you or anyone in your house had to go without enough: No Transportation Issues: No Has anyone in your support network made you feel unsafe?: No Does the patient want assistance with any of the above?: No Comment: PATIENT STATES THEY HAVE BAT BUGS - Physical Exam Vital Signs: Vital Signs - 24 hr Temp Pulse Resp BP BP Pulse Ox 09/17/24 10:00 73 14 133/75 94 L 09/17/24 04:19 97.7 F 85 20 125/69 98 09/16/24 22:19 74 22 133/75 99 09/16/24 22:00 74 22 133/75 99 09/16/24 21:58 75 22 158/89 99 09/16/24 21:53 136/81 09/16/24 21:27 75 22 158/89 99 09/16/24 21:00 75 22 158/89 99 General Appearance: no apparent distress, alert Neurologic Exam: alert, oriented x 3, cooperative, normal mood/affect, nml cerebellar function, nml station & gait, sensation nml, No motor deficits Eye Exam: PERRL/EOMI, eyes nml inspection Ears, Nose, Throat Exam: normal ENT inspection, TMs normal, pharynx normal, moist mucous membranes Neck Exam: normal inspection, non-tender, supple, full range of motion Respiratory Exam: normal breath sounds, lungs clear, No respiratory distress Cardiovascular Exam: regular rate/rhythm, normal heart sounds, normal peripheral pulses Gastrointestinal/Abdomen Exam: soft, normal bowel sounds, No tenderness, No mass Back Exam: normal inspection, normal range of motion, CVA tenderness (Left), No vertebral tenderness Extremity Exam: normal inspection, normal range of motion, pelvis stable Skin Exam: normal color, warm, dry, No rash Lymphatic Exam: No adenopathy Results - Labs Lab/Micro Results: Lab Results-Last 24 Hours 09/16/24 09/16/24 09/16/24 Range/Units 21:40 21:40 23:54 WBC (3.98-10.04) x10^3/uL RBC (3.93-5.22) x10^6/uL Hgb (11.2-15.7) g/dL Hct (34.1-44.9) % MCV (79.4-94.8) fL MCH (25.6-32.2) pg MCHC (32.2-35.5) g/dL RDW (11.7-14.4) % Plt Count (182-369) x10^3/uL MPV (9.4-12.3) fL Gran % (34.0-71.1) % Immature Gran % (Auto) (0.001-0.429) % Nucleat RBC Rel Count (0.00-0.2) % Eos # (Auto) (0.04-0.36) x10^3/uL Immature Gran # (Auto) (0.001-0.031) x10^3u/L Absolute Lymphs (auto) (1.18-3.74) x10^3/uL Absolute Monos (auto) (0.24-0.86) x10^3/uL Absolute Nucleated RBC (0.00-0.012) x10^3u/L Lymphocytes % (19.3-51.7) % Monocytes % (4.7-12.5) % Eosinophils % (0.7-5.8) % Basophils % (0.1-1.2) % Absolute Granulocytes (1.56-6.13) x10^3/uL Basophils # (0.01-0.08) x10^3/uL Puncture Site pCO2 (35-45) mmHg pO2 (75-100) mmHg Base Excess (-2.0-2.0) O2 Saturation (94-100) g/dF ABG pH (7.35-7.45) ABG HCO3 (22-28) ABG O2 Sat (Measured) (95-100) % Danie Test A-a Gradient a/A Ratio Hemoglobin Carboxyhemoglobin (0.0-6.9) % THgb Methemoglobin (1.4-1.5) % Temperature C POC O2 Flow Rate % Sodium (135-145) mmol/L Potassium (3.5-5.1) mmol/L Chloride (98-107) mmol/L Carbon Dioxide (22-30) mmol/L Anion Gap (5-15) MEQ/L BUN (7-17) mg/dL Creatinine (0.52-1.04) mg/dL Estimated GFR ML/MIN Glucose (74-106) mg/dL POC Glucometer 97 (74 to 106) mg/dL Calcium (8.4-10.2) mg/dL Total Bilirubin (0.2-1.3) mg/dL AST (14-36) U/L ALT (0-35) U/L Alkaline Phosphatase (38-126) U/L Serum Total Protein (6.3-8.2) g/dL Albumin (3.5-5.0) g/dL Urine Color Dark Yellow A (Yellow) Urine Appearance Cloudy A (Clear) Urine pH 6.5 (4.6-8.0) Ur Specific [place] >=1.030 A (1.005-1.030) Urine Protein 30 (Negative) Urine Glucose (UA) Negative (Negative) mg/dL Urine Ketones 80 A (Negative) Urine Blood Small A (Negative) Urine Nitrite Negative (Negative) Urine Bilirubin Negative (Negative) Urine Urobilinogen 1.0 A (0.2) mg/dL Ur Leukocyte Esterase Small A (Negative) U Hyaline Cast (Auto) 3-5 A (0-2) /LPF Urine Microscopic RBC 11-20 A (0-5) /HPF Urine Microscopic WBC 21-50 A (0-5) /HPF Ur Epithelial Cells Many A (None Seen) /HPF Urine Bacteria None Seen (None Seen) /HPF Urine Culture Reflexed YES (NO) Urine Opiates Level NEGATIVE (NEGATIVE) Ur Methadone NEGATIVE (NEGATIVE) Urine Barbiturates NEGATIVE (NEGATIVE) Ur Phencyclidine (PCP) NEGATIVE (NEGATIVE) Urine Amphetamine NEGATIVE (NEGATIVE) U Benzodiazepine Level NEGATIVE (NEGATIVE) Urine Cocaine NEGATIVE (NEGATIVE) Urine Marijuana (THC) NEGATIVE (NEGATIVE) 09/17/24 09/17/24 09/17/24 Range/Units 05:35 05:35 08:50 WBC 8.6 (3.98-10.04) x10^3/uL RBC 3.44 L (3.93-5.22) x10^6/uL Hgb 9.8 L (11.2-15.7) g/dL Hct 29.5 L (34.1-44.9) % MCV 85.8 (79.4-94.8) fL MCH 28.5 (25.6-32.2) pg MCHC 33.2 (32.2-35.5) g/dL RDW 14.9 H (11.7-14.4) % Plt Count 192 (182-369) x10^3/uL MPV 11.6 (9.4-12.3) fL Gran % 74.7 H (34.0-71.1) % Immature Gran % (Auto) 0.5 H (0.001-0.429) % Nucleat RBC Rel Count 0.0 (0.00-0.2) % Eos # (Auto) 0.07 (0.04-0.36) x10^3/uL Immature Gran # (Auto) 0.04 H (0.001-0.031) x10^3u/L Absolute Lymphs (auto) 1.55 (1.18-3.74) x10^3/uL Absolute Monos (auto) 0.47 (0.24-0.86) x10^3/uL Absolute Nucleated RBC 0.00 (0.00-0.012) x10^3u/L Lymphocytes % 18.1 L (19.3-51.7) % Monocytes % 5.5 (4.7-12.5) % Eosinophils % 0.8 (0.7-5.8) % Basophils % 0.4 (0.1-1.2) % Absolute Granulocytes 6.40 H (1.56-6.13) x10^3/uL Basophils # 0.03 (0.01-0.08) x10^3/uL Puncture Site LEFT RADIAL pCO2 17 L* (35-45) mmHg pO2 165 H* (75-100) mmHg Base Excess -2.4 L (-2.0-2.0) O2 Saturation 87.0 L (94-100) g/dF ABG pH 7.61 H* (7.35-7.45) ABG HCO3 17.1 L (22-28) ABG O2 Sat (Measured) 99.7 (95-100) % Danie Test YES A-a Gradient -37 a/A Ratio 1.29 Hemoglobin 10.9 Carboxyhemoglobin 12.3 H* (0.0-6.9) % THgb Methemoglobin 0.5 L (1.4-1.5) % Temperature 37.0 C POC O2 Flow Rate 21 % Sodium 136 (135-145) mmol/L Potassium 3.2 L 3.9 (3.5-5.1) mmol/L Chloride 107 (98-107) mmol/L Carbon Dioxide 19 L (22-30) mmol/L Anion Gap 13.1 (5-15) MEQ/L BUN 8 (7-17) mg/dL Creatinine 0.53 (0.52-1.04) mg/dL Estimated GFR 122.1 ML/MIN Glucose 78 (74-106) mg/dL POC Glucometer (74 to 106) mg/dL Calcium 8.4 (8.4-10.2) mg/dL Total Bilirubin 0.30 (0.2-1.3) mg/dL AST 24 (14-36) U/L ALT 18 (0-35) U/L Alkaline Phosphatase 75 (38-126) U/L Serum Total Protein 5.8 L (6.3-8.2) g/dL Albumin 3.2 L (3.5-5.0) g/dL Urine Color (Yellow) Urine Appearance (Clear) Urine pH (4.6-8.0) Ur Specific [place] (1.005-1.030) Urine Protein (Negative) Urine Glucose (UA) (Negative) mg/dL Urine Ketones (Negative) Urine Blood (Negative) Urine Nitrite (Negative) Urine Bilirubin (Negative) Urine Urobilinogen (0.2) mg/dL Ur Leukocyte Esterase (Negative) U Hyaline Cast (Auto) (0-2) /LPF Urine Microscopic RBC (0-5) /HPF Urine Microscopic WBC (0-5) /HPF Ur Epithelial Cells (None Seen) /HPF Urine Bacteria (None Seen) /HPF Urine Culture Reflexed (NO) Urine Opiates Level (NEGATIVE) Ur Methadone (NEGATIVE) Urine Barbiturates (NEGATIVE) Ur Phencyclidine (PCP) (NEGATIVE) Urine Amphetamine (NEGATIVE) U Benzodiazepine Level (NEGATIVE) Urine Cocaine (NEGATIVE) Urine Marijuana (THC) (NEGATIVE) 09/17/24 09/17/24 Range/Units 09:13 09:34 WBC (3.98-10.04) x10^3/uL RBC (3.93-5.22) x10^6/uL Hgb (11.2-15.7) g/dL Hct (34.1-44.9) % MCV (79.4-94.8) fL MCH (25.6-32.2) pg MCHC (32.2-35.5) g/dL RDW (11.7-14.4) % Plt Count (182-369) x10^3/uL MPV (9.4-12.3) fL Gran % (34.0-71.1) % Immature Gran % (Auto) (0.001-0.429) % Nucleat RBC Rel Count (0.00-0.2) % Eos # (Auto) (0.04-0.36) x10^3/uL Immature Gran # (Auto) (0.001-0.031) x10^3u/L Absolute Lymphs (auto) (1.18-3.74) x10^3/uL Absolute Monos (auto) (0.24-0.86) x10^3/uL Absolute Nucleated RBC (0.00-0.012) x10^3u/L Lymphocytes % (19.3-51.7) % Monocytes % (4.7-12.5) % Eosinophils % (0.7-5.8) % Basophils % (0.1-1.2) % Absolute Granulocytes (1.56-6.13) x10^3/uL Basophils # (0.01-0.08) x10^3/uL Puncture Site pCO2 (35-45) mmHg pO2 (75-100) mmHg Base Excess (-2.0-2.0) O2 Saturation (94-100) g/dF ABG pH (7.35-7.45) ABG HCO3 (22-28) ABG O2 Sat (Measured) (95-100) % Danie Test A-a Gradient a/A Ratio Hemoglobin Carboxyhemoglobin (0.0-6.9) % THgb Methemoglobin (1.4-1.5) % Temperature C POC O2 Flow Rate % Sodium (135-145) mmol/L Potassium 3.3 L (3.5-5.1) mmol/L Chloride (98-107) mmol/L Carbon Dioxide (22-30) mmol/L Anion Gap (5-15) MEQ/L BUN (7-17) mg/dL Creatinine (0.52-1.04) mg/dL Estimated GFR ML/MIN Glucose (74-106) mg/dL POC Glucometer 79 (74 to 106) mg/dL Calcium (8.4-10.2) mg/dL Total Bilirubin (0.2-1.3) mg/dL AST (14-36) U/L ALT (0-35) U/L Alkaline Phosphatase (38-126) U/L Serum Total Protein (6.3-8.2) g/dL Albumin (3.5-5.0) g/dL Urine Color (Yellow) Urine Appearance (Clear) Urine pH (4.6-8.0) Ur Specific [place] (1.005-1.030) Urine Protein (Negative) Urine Glucose (UA) (Negative) mg/dL Urine Ketones (Negative) Urine Blood (Negative) Urine Nitrite (Negative) Urine Bilirubin (Negative) Urine Urobilinogen (0.2) mg/dL Ur Leukocyte Esterase (Negative) U Hyaline Cast (Auto) (0-2) /LPF Urine Microscopic RBC (0-5) /HPF Urine Microscopic WBC (0-5) /HPF Ur Epithelial Cells (None Seen) /HPF Urine Bacteria (None Seen) /HPF Urine Culture Reflexed (NO) Urine Opiates Level (NEGATIVE) Ur Methadone (NEGATIVE) Urine Barbiturates (NEGATIVE) Ur Phencyclidine (PCP) (NEGATIVE) Urine Amphetamine (NEGATIVE) U Benzodiazepine Level (NEGATIVE) Urine Cocaine (NEGATIVE) Urine Marijuana (THC) (NEGATIVE) - Radiology Impressions Radiology Exams & Impressions: Radiology Procedures Category Date Time Status KIDNEY [US] Routine Exams 09/17/24 09:22 Completed Assessment/Plan (1) UTI in Current Visit: No Status: Acute Assessment & Plan: - Ceftriaxone - IVF - UC pending - Renal US shows: Impression: Mild left hydronephrosis. Query related to current gravid status. Remaining renal sonograms negative. - Discussed findings with Dr. Graham -OB and he explained this is a common finding in - no need to transfer at this time. Code(s): O23.40 - UNSP INFECTION OF URINARY TRACT IN , UNSP TRIMESTER (2) Back pain Current Visit: Yes Status: Acute Assessment & Plan: - 2:2 left hydronephrosis - Heating pad - Tylenol for pain PRN Code(s): M54.9 - DORSALGIA, UNSPECIFIED (3) Gestational diabetes Current Visit: Yes Status: Acute Assessment & Plan: - Stop metformin d/t side effects of diarrhea daily - Start humalog s/s, accuchecks ac/hs - Nursing to provide education for home use - Nutrition consult - A1C 5.82- 08/28/24- controlled Code(s): O24.419 - GESTATIONAL DIABETES MELLITUS IN , UNSP CONTROL (4) Adverse effect of metformin Current Visit: Yes Status: Acute Assessment & Plan: - Pt reports daily diarrhea from metformin - IVF - Stop metformin changed to humalog s/s Code(s): T38.3X5A - ADVERSE EFFECT OF INSULIN AND ORAL HYPOGLYCEMIC DRUGS, INIT (5) Hydronephrosis Current Visit: Yes Status: Acute Assessment & Plan: - Renal US shows: Impression: Mild left hydronephrosis. Query related to current gravid status. Remaining renal sonograms negative. - Discussed findings with Dr. Graham OB and he explained this is a common finding in - no need to transfer at this time. - IVF Code(s): N13.30 - UNSPECIFIED HYDRONEPHROSIS (6) Acute respiratory alkalosis Current Visit: Yes Status: Acute Assessment & Plan: - As seen on ABG - Likely 2: daily diarrhea from metformin - Stopped metformin - Replaced K+ - IVF - Antibiotic for UTI - recheck labs later today Code(s): E87.3 - ALKALOSIS (7) Hypokalemia Current Visit: Yes Status: Acute Assessment & Plan: - 2:2 diarrhea from metformin - K+ 3.2- trend - LR IVF - replaced - tele Code(s): E87.6 - HYPOKALEMIA (8) HTN (hypertension) Current Visit: Yes Status: Chronic Assessment & Plan: - BP stable - Continue home med VTE: SCD's Next of KIN: Code status: full D/C plan: 1-2 days Code(s): I10 - ESSENTIAL (PRIMARY) HYPERTENSION
[2024-09-17] MEDS ORDERED: HUMALOG SQ PRN (12:17)
[2024-09-17] MEDS: FEOSOL 325 MG PO SCH (12:37)
[2024-09-17] MEDS: THERAGRAN MULTIVITAMIN PO SCH (12:37)
[2024-09-17] MEDS: Trandate 100 MG PO SCH (12:38)
[2024-09-17] MEDS: Lactated Ringers 1,000 ML IV SCH (13:00)
[2024-09-17] MEDS ORDERED: ECOTRIN 81 MG PO SCH (13:00)
[2024-09-17] MEDS: POTASSIUM CHLORIDE 20 mEq IN WATER 100ML 20 MEQ/100 ML BAG IV ONE (15:03)
[2024-09-17] MEDS: K-LYTE PO ONE (15:03)
[2024-09-17 18:23] LABS: ALBUMIN 3.4 g/dL (3.5-5.0); ANION GAP 13.7 MEQ/L (5-15); BILIRUBIN,TOTAL 0.3 mg/dL (0.2-1.3); Calcium 9.2 mg/dL (8.4-10.2); Creatinine 1 0.48 mg/dL (0.52-1.04); MAGNESIUM 1.6 mg/dL (1.6-2.3); Potassium 3.6 mmol/L (3.5-5.1); Total Protein 6.1 g/dL (6.3-8.2)
[2024-09-17 21:47] VITALS: RESP 20
[2024-09-17] MEDS: ECOTRIN 81 MG PO SCH (22:27)
[2024-09-18 06:02] LABS: Hemoglobin 9.9 g/dL (11.2-15.7); Mean Cell Volume 89.9 fL (79.4-94.8); Mean Corpuscular Hemoglobin 27.8 pg (25.6-32.2); Mean Corpuscular Hgb Concent. 30.9 g/dL (32.2-35.5); Mean Platelet Volume 13.3 fL (9.4-12.3); Platelet Count 151 x10^3/uL (182-369); Red Blood Count 3.56 x10^6/uL (3.93-5.22); Red Cell Distribution Width 15.4 % (11.7-14.4); White Blood Count 6.5 x10^3/uL (3.98-10.04)
[2024-09-18 06:24] LABS: ANION GAP 13.7 MEQ/L (5-15); Calcium 8.5 mg/dL (8.4-10.2); Creatinine 1 0.47 mg/dL (0.52-1.04); EST GLOMERULAR FILTRATION RATE 125.7 ML/MIN; MAGNESIUM 1.7 mg/dL (1.6-2.3); Potassium 3.5 mmol/L (3.5-5.1)
[2024-09-18 06:55] LABS: Slide Review YES
--- NOTE | 2024-09-18 09:10 | PCM.HP ---
History of Present Illness - Chief Complaint Chief Complaint: UTI flank pain History of Present Illness: is a 39 year old female at 34 2/7 wks gestation presented with severe flank pain and was daignosed with uti prior to coming into the hospital 3 days prior. pt had been on macrobid however restarted having significant left flank pain radiating to umbilicus. pt had ua showing significant ketones and elevated specific gravity on ua. pt with hx of gestational htn on labetolol and metformin 1000mg bid for gest diabetes. does co continued diarrhea since she was placed on metformin. Medications & Allergies Home Medications: Home Medication List Pnv No.95/Ferrous Fum/Folic AC [ Caplet] 1 cap PO DAILY 03/13/24 [History Confirmed 09/16/24] Aspirin [Ecotrin] 1 tab PO DAILY 07/29/24 [History Confirmed 09/16/24] Ferrous Sulfate [Iron] 325 mg PO DAILY 07/29/24 [History Confirmed 09/16/24] Labetalol HCl 100 mg [Trandate 100 MG] 100 mg PO BID 09/14/24 [History Confirmed 09/16/24] Metformin HCl 500 mg [Glucophage 500 MG] 1,000 mg PO BID 09/14/24 [History Confirmed 09/16/24] Allergies/Adverse Reactions: Allergies Allergy/AdvReac Type Severity Reaction Status Date / Time paroxetine [From Paxil] AdvReac Verified 07/29/24 14:00 - Past Medical History Past Medical History: Yes Neurological History: No Pertinent History ENT History: No Pertinent History Cardiac History: No Pertinent History Respiratory History: No Pertinent History Endocrine Medical History: No Pertinent History Musculoskelatal History: No Pertinent History GI Medical History: Gallbladder Disease History: No Pertinent History Pyscho-Social History: No Pertinent History Reproductive Disorders: Menstrual Problems Comment: irregular periods, kidney stones - Female History Are you now?: Yes - Past Surgical History Past Surgical History: Yes Neuro Surgical History: No Pertinent History Cardiac History: No Pertinent History Respiratory Surgery: No Pertinent History GI Surgical History: Cholecystectomy Genitourinary Surgical Hx: No Pertinent History Musculskeletal Surgical Hx: No Pertinent History Female Surgical History: No Pertinent History - Social History Smoking Status: Former smoker How long have you smoked: 11 years Exposure to second hand smoke: Yes Alcohol: None Drug Use: none - Social Determinants of Health Will the patient participate in the screening: Yes Do you worry about a steady place to live?: No Do you have any problems with any of the following?: Pest (bugs,ants,or mice) In the past 12 months,have you had to go without utilities?: No Have you or anyone in your house had to go without enough: No Transportation Issues: No Has anyone in your support network made you feel unsafe?: No Does the patient want assistance with any of the above?: No Comment: PATIENT STATES THEY HAVE BAT BUGS - Physical Exam Vital Signs: Vital Signs - 24 hr Temp Pulse Resp BP BP Pulse Ox 09/18/24 08:42 97.5 F 81 20 126/74 96 09/18/24 04:35 97.5 F 87 20 122/71 97 09/17/24 23:18 97.3 F 80 20 142/67 97 09/17/24 21:46 75 20 133/80 98 09/17/24 21:44 79 18 136/79 97 09/17/24 19:49 97.6 F 79 18 140/80 97 09/17/24 16:00 97.9 F 80 20 131/69 97 09/17/24 12:44 97.9 F 80 20 131/69 97 09/17/24 10:00 73 14 133/75 94 L General Appearance: moderate distress Pelvic Exam: other (closed posterior) Results - Labs Lab/Micro Results: Lab Results-Last 24 Hours 09/17/24 09/17/24 09/17/24 Range/Units 09:13 09:34 12:16 WBC (3.98-10.04) x10^3/uL RBC (3.93-5.22) x10^6/uL Hgb (11.2-15.7) g/dL Hct (34.1-44.9) % MCV (79.4-94.8) fL MCH (25.6-32.2) pg MCHC (32.2-35.5) g/dL RDW (11.7-14.4) % Plt Count (182-369) x10^3/uL MPV (9.4-12.3) fL Sodium (135-145) mmol/L Potassium 3.3 L 3.4 L (3.5-5.1) mmol/L Chloride (98-107) mmol/L Carbon Dioxide (22-30) mmol/L Anion Gap (5-15) MEQ/L BUN (7-17) mg/dL Creatinine (0.52-1.04) mg/dL Estimated GFR ML/MIN Glucose (74-106) mg/dL POC Glucometer 79 (74 to 106) mg/dL Calcium (8.4-10.2) mg/dL Magnesium (1.6-2.3) mg/dL Total Bilirubin (0.2-1.3) mg/dL AST (14-36) U/L ALT (0-35) U/L Alkaline Phosphatase (38-126) U/L Serum Total Protein (6.3-8.2) g/dL Albumin (3.5-5.0) g/dL Slides for Path Review 09/17/24 09/17/24 09/17/24 Range/Units 16:26 18:09 21:49 WBC (3.98-10.04) x10^3/uL RBC (3.93-5.22) x10^6/uL Hgb (11.2-15.7) g/dL Hct (34.1-44.9) % MCV (79.4-94.8) fL MCH (25.6-32.2) pg MCHC (32.2-35.5) g/dL RDW (11.7-14.4) % Plt Count (182-369) x10^3/uL MPV (9.4-12.3) fL Sodium 137 (135-145) mmol/L Potassium 3.6 (3.5-5.1) mmol/L Chloride 105 (98-107) mmol/L Carbon Dioxide 21 L (22-30) mmol/L Anion Gap 13.7 (5-15) MEQ/L BUN 8 (7-17) mg/dL Creatinine 0.48 L (0.52-1.04) mg/dL Estimated GFR 125.0 ML/MIN Glucose 103 (74-106) mg/dL POC Glucometer 104 100 (74 to 106) mg/dL Calcium 9.2 (8.4-10.2) mg/dL Magnesium 1.6 (1.6-2.3) mg/dL Total Bilirubin 0.30 (0.2-1.3) mg/dL AST 27 (14-36) U/L ALT 22 (0-35) U/L Alkaline Phosphatase 80 (38-126) U/L Serum Total Protein 6.1 L (6.3-8.2) g/dL Albumin 3.4 L (3.5-5.0) g/dL Slides for Path Review 09/18/24 09/18/24 09/18/24 Range/Units 04:30 04:30 07:19 WBC 6.5 (3.98-10.04) x10^3/uL RBC 3.56 L (3.93-5.22) x10^6/uL Hgb 9.9 L (11.2-15.7) g/dL Hct 32.0 L (34.1-44.9) % MCV 89.9 (79.4-94.8) fL MCH 27.8 (25.6-32.2) pg MCHC 30.9 L (32.2-35.5) g/dL RDW 15.4 H (11.7-14.4) % Plt Count 151 L (182-369) x10^3/uL MPV 13.3 H (9.4-12.3) fL Sodium 138 (135-145) mmol/L Potassium 3.5 (3.5-5.1) mmol/L Chloride 108 H (98-107) mmol/L Carbon Dioxide 20 L (22-30) mmol/L Anion Gap 13.7 (5-15) MEQ/L BUN 7 (7-17) mg/dL Creatinine 0.47 L (0.52-1.04) mg/dL Estimated GFR 125.7 ML/MIN Glucose 91 (74-106) mg/dL POC Glucometer 94 (74 to 106) mg/dL Calcium 8.5 (8.4-10.2) mg/dL Magnesium 1.7 (1.6-2.3) mg/dL Total Bilirubin (0.2-1.3) mg/dL AST (14-36) U/L ALT (0-35) U/L Alkaline Phosphatase (38-126) U/L Serum Total Protein (6.3-8.2) g/dL Albumin (3.5-5.0) g/dL Slides for Path Review YES Microbiology 09/16/24 21:40 Urine Culture - Final Clean Catch Midstream <10K NORMAL SKIN KATHY PROBABLE SKIN CONTAMINANT Accuchecks Date 09/18/24 Date 09/17/24 - Radiology Impressions Radiology Exams & Impressions: Radiology Procedures Category Date Time Status KIDNEY [US] Routine Exams 09/17/24 09:22 Completed Assessment/Plan (1) Gestational diabetes Current Visit: Yes Status: Acute Code(s): O24.419 - GESTATIONAL DIABETES MELLITUS IN , UNSP CONTROL (2) Urinary tract infection affecting Current Visit: Yes Status: Acute Code(s): O23.40 - UNSP INFECTION OF URINARY TRACT IN , UNSP TRIMESTER (3) Dehydration Current Visit: Yes Status: Acute Code(s): E86.0 - DEHYDRATION (4) Diarrhea Current Visit: Yes Status: Acute Code(s): R19.7 - DIARRHEA, UNSPECIFIED
--- NOTE | 2024-09-18 09:12 | PCM.NOTE ---
Date and Time: 09/18/24909 Subjective Assessment: pt currently 34 4/7 wks gestation with hx of gest htn and gest diabetes currently feeling much better with much left flank discomfort. states overal feeling better. vss afebrile abd; gravid uterus; gravid labs; much improved a/p iup at 34 4/7 wks with gest diabetes, gest htn, diarrhea feeling better much improved will dc home on insulin and discontinue metformin should fu in office next monday will fu with mfm next monday Objective Data Vital Signs: Vital Signs - 24 hr Temp Pulse Resp BP BP Pulse Ox 09/18/24 08:42 97.5 F 81 20 126/74 96 09/18/24 04:35 97.5 F 87 20 122/71 97 09/17/24 23:18 97.3 F 80 20 142/67 97 09/17/24 21:46 75 20 133/80 98 09/17/24 21:44 79 18 136/79 97 09/17/24 19:49 97.6 F 79 18 140/80 97 09/17/24 16:00 97.9 F 80 20 131/69 97 09/17/24 12:44 97.9 F 80 20 131/69 97 09/17/24 10:00 73 14 133/75 94 L Pain Assessment - Last Documented Pain Intensity 0 Pain Scale Used 0-10 Pain Scale Intake and Output: Intake & Output 09/15/24 09/16/24 09/17/24 09/18/24 11:59 11:59 11:59 11:59 Intake Total 100 2022 Balance 100 2022 Weight 91.444 kg Lab Results: Lab Results-Last 24 Hours 09/17/24 09/17/24 09/17/24 Range/Units 09:13 09:34 12:16 WBC (3.98-10.04) x10^3/uL RBC (3.93-5.22) x10^6/uL Hgb (11.2-15.7) g/dL Hct (34.1-44.9) % MCV (79.4-94.8) fL MCH (25.6-32.2) pg MCHC (32.2-35.5) g/dL RDW (11.7-14.4) % Plt Count (182-369) x10^3/uL MPV (9.4-12.3) fL Sodium (135-145) mmol/L Potassium 3.3 L 3.4 L (3.5-5.1) mmol/L Chloride (98-107) mmol/L Carbon Dioxide (22-30) mmol/L Anion Gap (5-15) MEQ/L BUN (7-17) mg/dL Creatinine (0.52-1.04) mg/dL Estimated GFR ML/MIN Glucose (74-106) mg/dL POC Glucometer 79 (74 to 106) mg/dL Calcium (8.4-10.2) mg/dL Magnesium (1.6-2.3) mg/dL Total Bilirubin (0.2-1.3) mg/dL AST (14-36) U/L ALT (0-35) U/L Alkaline Phosphatase (38-126) U/L Serum Total Protein (6.3-8.2) g/dL Albumin (3.5-5.0) g/dL Slides for Path Review 09/17/24 09/17/24 09/17/24 Range/Units 16:26 18:09 21:49 WBC (3.98-10.04) x10^3/uL RBC (3.93-5.22) x10^6/uL Hgb (11.2-15.7) g/dL Hct (34.1-44.9) % MCV (79.4-94.8) fL MCH (25.6-32.2) pg MCHC (32.2-35.5) g/dL RDW (11.7-14.4) % Plt Count (182-369) x10^3/uL MPV (9.4-12.3) fL Sodium 137 (135-145) mmol/L Potassium 3.6 (3.5-5.1) mmol/L Chloride 105 (98-107) mmol/L Carbon Dioxide 21 L (22-30) mmol/L Anion Gap 13.7 (5-15) MEQ/L BUN 8 (7-17) mg/dL Creatinine 0.48 L (0.52-1.04) mg/dL Estimated GFR 125.0 ML/MIN Glucose 103 (74-106) mg/dL POC Glucometer 104 100 (74 to 106) mg/dL Calcium 9.2 (8.4-10.2) mg/dL Magnesium 1.6 (1.6-2.3) mg/dL Total Bilirubin 0.30 (0.2-1.3) mg/dL AST 27 (14-36) U/L ALT 22 (0-35) U/L Alkaline Phosphatase 80 (38-126) U/L Serum Total Protein 6.1 L (6.3-8.2) g/dL Albumin 3.4 L (3.5-5.0) g/dL Slides for Path Review 09/18/24 09/18/24 09/18/24 Range/Units 04:30 04:30 07:19 WBC 6.5 (3.98-10.04) x10^3/uL RBC 3.56 L (3.93-5.22) x10^6/uL Hgb 9.9 L (11.2-15.7) g/dL Hct 32.0 L (34.1-44.9) % MCV 89.9 (79.4-94.8) fL MCH 27.8 (25.6-32.2) pg MCHC 30.9 L (32.2-35.5) g/dL RDW 15.4 H (11.7-14.4) % Plt Count 151 L (182-369) x10^3/uL MPV 13.3 H (9.4-12.3) fL Sodium 138 (135-145) mmol/L Potassium 3.5 (3.5-5.1) mmol/L Chloride 108 H (98-107) mmol/L Carbon Dioxide 20 L (22-30) mmol/L Anion Gap 13.7 (5-15) MEQ/L BUN 7 (7-17) mg/dL Creatinine 0.47 L (0.52-1.04) mg/dL Estimated GFR 125.7 ML/MIN Glucose 91 (74-106) mg/dL POC Glucometer 94 (74 to 106) mg/dL Calcium 8.5 (8.4-10.2) mg/dL Magnesium 1.7 (1.6-2.3) mg/dL Total Bilirubin (0.2-1.3) mg/dL AST (14-36) U/L ALT (0-35) U/L Alkaline Phosphatase (38-126) U/L Serum Total Protein (6.3-8.2) g/dL Albumin (3.5-5.0) g/dL Slides for Path Review YES Radiology Exams: Radiology Procedures Category Date Time Status KIDNEY [US] Routine Exams 09/17/24 09:22 Completed Assessment/Plan (1) Gestational diabetes Current Visit: Yes Status: Acute Code(s): O24.419 - GESTATIONAL DIABETES MELLITUS IN , UNSP CONTROL (2) Urinary tract infection affecting Current Visit: Yes Status: Acute Code(s): O23.40 - UNSP INFECTION OF URINARY TRACT IN , UNSP TRIMESTER (3) Dehydration Current Visit: Yes Status: Acute Code(s): E86.0 - DEHYDRATION (4) Diarrhea Current Visit: Yes Status: Acute Code(s): R19.7 - DIARRHEA, UNSPECIFIED
--- NOTE | 2024-09-18 09:17 | PCM.DS ---
Discharge Summary Date of Admission: 09/16/24 21:27 Admitting Physician: PATRICIA LI DO Consults: Consults on Case 09/17/24 12:15 Nutritional Consult ROUTINE Primary Care Provider: KATHLEEN RHODES Allergies Allergies paroxetine [From Paxil] Adverse Reaction (Verified 07/29/24 14:00) Hospital Summary - Hospital Course Hospital Course: pt is a 39 yo iup 34 4/7 wks gestation with gest diabetes had been on met formin 1000mg bid and with gest htn on labetolol 100mg bid admitted for dehydration secondary to ongoing diarrhea secondary to metformin use for gest diabetes and with co left flank pain. pt was given rocephin 1gm q 24 hrs for total of 2 doses of antibiotic with instructions for her to continue macrobid bid 7 days upon discharge for uti. pt was noted having elevated ketones in urine as well as elevated specific gravity on ua with signific leukocyte esterace. currently feeling much better. pt was noted having abnormal blood gas and was evaluated by house medicine for which it was determined to discontinue her metformin and start insulin therapy secondary to diarrhea. pt was education on the use of insulin and has fu appt with mfm next monday and with me next monday. all questions answered to her satisfaction and at this time feeling much better and stable for discharge. - Vitals & Intake/Output Vital Signs: Vital Signs Temperature 97.5 F 09/18/24 08:42 Pulse Rate 81 09/18/24 08:42 Respiratory Rate 20 09/18/24 08:42 Blood Pressure 126/74 09/18/24 08:42 O2 Sat by Pulse Oximetry 96 09/18/24 08:42 Intake & Output: Intake & Output 09/15/24 09/16/24 09/17/24 09/18/24 11:59 11:59 11:59 11:59 Intake Total 2022 Balance 100 2022 Weight 91.444 kg - Lab Result Diagrams: 09/18/24 04:30 09/18/24 04:30 Lab Results-Last 24 Hrs: Lab Results-Last 24 Hours 09/17/24 09/17/24 09/17/24 Range/Units 09:13 09:34 12:16 WBC (3.98-10.04) x10^3/uL RBC (3.93-5.22) x10^6/uL Hgb (11.2-15.7) g/dL Hct (34.1-44.9) % MCV (79.4-94.8) fL MCH (25.6-32.2) pg MCHC (32.2-35.5) g/dL RDW (11.7-14.4) % Plt Count (182-369) x10^3/uL MPV (9.4-12.3) fL Sodium (135-145) mmol/L Potassium 3.3 L 3.4 L (3.5-5.1) mmol/L Chloride (98-107) mmol/L Carbon Dioxide (22-30) mmol/L Anion Gap (5-15) MEQ/L BUN (7-17) mg/dL Creatinine (0.52-1.04) mg/dL Estimated GFR ML/MIN Glucose (74-106) mg/dL POC Glucometer 79 (74 to 106) mg/dL Calcium (8.4-10.2) mg/dL Magnesium (1.6-2.3) mg/dL Total Bilirubin (0.2-1.3) mg/dL AST (14-36) U/L ALT (0-35) U/L Alkaline Phosphatase (38-126) U/L Serum Total Protein (6.3-8.2) g/dL Albumin (3.5-5.0) g/dL Slides for Path Review 09/17/24 09/17/24 09/17/24 Range/Units 16:26 18:09 21:49 WBC (3.98-10.04) x10^3/uL RBC (3.93-5.22) x10^6/uL Hgb (11.2-15.7) g/dL Hct (34.1-44.9) % MCV (79.4-94.8) fL MCH (25.6-32.2) pg MCHC (32.2-35.5) g/dL RDW (11.7-14.4) % Plt Count (182-369) x10^3/uL MPV (9.4-12.3) fL Sodium 137 (135-145) mmol/L Potassium 3.6 (3.5-5.1) mmol/L Chloride 105 (98-107) mmol/L Carbon Dioxide 21 L (22-30) mmol/L Anion Gap 13.7 (5-15) MEQ/L BUN 8 (7-17) mg/dL Creatinine 0.48 L (0.52-1.04) mg/dL Estimated GFR 125.0 ML/MIN Glucose 103 (74-106) mg/dL POC Glucometer 104 100 (74 to 106) mg/dL Calcium 9.2 (8.4-10.2) mg/dL Magnesium 1.6 (1.6-2.3) mg/dL Total Bilirubin 0.30 (0.2-1.3) mg/dL AST 27 (14-36) U/L ALT 22 (0-35) U/L Alkaline Phosphatase 80 (38-126) U/L Serum Total Protein 6.1 L (6.3-8.2) g/dL Albumin 3.4 L (3.5-5.0) g/dL Slides for Path Review 09/18/24 09/18/24 09/18/24 Range/Units 04:30 04:30 07:19 WBC 6.5 (3.98-10.04) x10^3/uL RBC 3.56 L (3.93-5.22) x10^6/uL Hgb 9.9 L (11.2-15.7) g/dL Hct 32.0 L (34.1-44.9) % MCV 89.9 (79.4-94.8) fL MCH 27.8 (25.6-32.2) pg MCHC 30.9 L (32.2-35.5) g/dL RDW 15.4 H (11.7-14.4) % Plt Count 151 L (182-369) x10^3/uL MPV 13.3 H (9.4-12.3) fL Sodium 138 (135-145) mmol/L Potassium 3.5 (3.5-5.1) mmol/L Chloride 108 H (98-107) mmol/L Carbon Dioxide 20 L (22-30) mmol/L Anion Gap 13.7 (5-15) MEQ/L BUN 7 (7-17) mg/dL Creatinine 0.47 L (0.52-1.04) mg/dL Estimated GFR 125.7 ML/MIN Glucose 91 (74-106) mg/dL POC Glucometer 94 (74 to 106) mg/dL Calcium 8.5 (8.4-10.2) mg/dL Magnesium 1.7 (1.6-2.3) mg/dL Total Bilirubin (0.2-1.3) mg/dL AST (14-36) U/L ALT (0-35) U/L Alkaline Phosphatase (38-126) U/L Serum Total Protein (6.3-8.2) g/dL Albumin (3.5-5.0) g/dL Slides for Path Review YES Micro Results-Entire Visit: Microbiology 09/16/24 21:40 Urine Culture - Final Clean Catch Midstream <10K NORMAL SKIN KATHY PROBABLE SKIN CONTAMINANT Accuchecks Date 09/18/24 Date 09/17/24 - Radiology Exams Ordered Rad Exams-Entire Visit: Radiology Procedures Category Date Time Status KIDNEY [US] Routine Exams 09/17/24 09:22 Completed Final Diagnosis/Problem List - Final Discharge Diagnosis/Problem (1) Gestational diabetes Current Visit: Yes Status: Acute Code(s): O24.419 - GESTATIONAL DIABETES MELLITUS IN , UNSP CONTROL (2) Urinary tract infection affecting Current Visit: Yes Status: Acute Code(s): O23.40 - UNSP INFECTION OF URINARY TRACT IN , UNSP TRIMESTER (3) Dehydration Current Visit: Yes Status: Acute Code(s): E86.0 - DEHYDRATION (4) Diarrhea Current Visit: Yes Status: Acute Code(s): R19.7 - DIARRHEA, UNSPECIFIED - Discharge Disposition: Home, Self-Care Condition: Stable Prescriptions: No Action Pnv No.95/Ferrous Fum/Folic AC [ Caplet] 1 cap PO DAILY Ferrous Sulfate [Iron] 325 mg PO DAILY Aspirin [Ecotrin] 1 tab PO DAILY Labetalol HCl 100 mg [Trandate 100 MG] 100 mg PO BID Metformin HCl 500 mg [Glucophage 500 MG] 1,000 mg PO BID Follow up with: KATHLEEN RHODES [Primary Care Provider] - PATRICIA LI DO [ACTIVE STAFF] - 1 Week
[2024-09-18] MEDS ORDERED: Sterile H2O 10 ml IJ ONE (14:30)
[2024-09-18 14:43] VITALS: BP 136/89; PULSE 86; TEMP 97.3; O2SAT 97
--- NOTE | 2024-09-18 15:30 | PCM.NOTE ---
Date and Time: 09/18/24 1525 Subjective Assessment: 09/17/24 is a 39 year old female with PMHX of kidney stones, gestational DM, 34 weeks , and recent multiple admissions for UTI. She was admitted by Dr. Graham for UTI and started on IVF and IV antibiotic. UC pending. US showed left hydronephrosis. Discussed with Dr. Graham and he advised to continue IVF. K+ 3.2 and replaced with lab trending. Placed on tele. ABG shows resp alkalosis. Pt admits she had had diarrhea daily since starting metformin. Metformin stopped and started Humalog s/s. 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 She denies CP, SOB, abd. pain, N/V. 09/18/24 Pt resting in bed. Discussed case with Dr. Graham and he plans to d/c pt today. Pt feeling better and ready to d/c. Sent in Insulin S/S and insulin syringes. Metformin stopped. Per case management pt has an accucheck machine and supplies at home. She denies any further concerns at this time. - Review of Systems Constitutional: No Fever, No Chills Eyes: No Symptoms Ears, Nose, & Throat: No Symptoms Respiratory: No Cough, No Short Of Breath Cardiac: No Chest Pain, No Edema, No Syncope Abdominal/Gastrointestinal: No Abdominal Pain, No Nausea, No Vomiting, No Diarrhea Genitourinary Symptoms: No Dysuria Musculoskeletal: No Back Pain, No Neck Pain Skin: No Rash Neurological: No Dizziness, No Focal Weakness, No Sensory Changes Psychological: No Symptoms Endocrine: No Symptoms Hematologic/Lymphatic: No Symptoms Immunological/Allergic: No Symptoms Objective Exam General Appearance: no apparent distress, alert Neurologic Exam: alert, oriented x 3, cooperative, normal mood/affect, nml cerebellar function, sensation nml, No motor deficits Skin Exam: normal color, warm, dry Eye Exam: PERRL, EOMI, eyes nml inspection Ears, Nose, Throat Exam: normal ENT inspection, pharynx normal, moist mucous membranes Neck Exam: normal inspection, non-tender, supple, full range of motion Respiratory Exam: normal breath sounds, lungs clear, No respiratory distress Cardiovascular Exam: regular rate/rhythm, normal heart sounds Gastrointestinal/Abdomen Exam: soft, No tenderness, No mass Extremity Exam: normal inspection, normal range of motion Back Exam: normal inspection, normal range of motion, No CVA tenderness, No vertebral tenderness Pelvic Exam: deferred Rectal Exam: deferred Objective Data Vital Signs: Vital Signs - 24 hr Temp Pulse Resp BP BP Pulse Ox 09/18/24 13:00 97.3 F 86 20 136/89 97 09/18/24 08:42 97.5 F 81 20 126/74 96 09/18/24 04:35 97.5 F 87 20 122/71 97 09/17/24 23:18 97.3 F 80 20 142/67 97 09/17/24 21:46 75 20 133/80 98 09/17/24 21:44 79 18 136/79 97 09/17/24 19:49 97.6 F 79 18 140/80 97 09/17/24 16:00 97.9 F 80 20 131/69 97 Pain Assessment - Last Documented Pain Intensity 0 Pain Scale Used 0-10 Pain Scale Intake and Output: Intake & Output 09/16/24 09/17/24 09/18/24 09/19/24 11:59 11:59 11:59 11:59 Intake Total 100 2853 787 Balance 100 2853 787 Weight 91.444 kg 91.444 kg Lab Results: Lab Results-Last 24 Hours 09/17/24 09/17/24 09/17/24 Range/Units 16:26 18:09 21:49 WBC (3.98-10.04) x10^3/uL RBC (3.93-5.22) x10^6/uL Hgb (11.2-15.7) g/dL Hct (34.1-44.9) % MCV (79.4-94.8) fL MCH (25.6-32.2) pg MCHC (32.2-35.5) g/dL RDW (11.7-14.4) % Plt Count (182-369) x10^3/uL MPV (9.4-12.3) fL Sodium 137 (135-145) mmol/L Potassium 3.6 (3.5-5.1) mmol/L Chloride 105 (98-107) mmol/L Carbon Dioxide 21 L (22-30) mmol/L Anion Gap 13.7 (5-15) MEQ/L BUN 8 (7-17) mg/dL Creatinine 0.48 L (0.52-1.04) mg/dL Estimated GFR 125.0 ML/MIN Glucose 103 (74-106) mg/dL POC Glucometer 104 100 (74 to 106) mg/dL Calcium 9.2 (8.4-10.2) mg/dL Magnesium 1.6 (1.6-2.3) mg/dL Total Bilirubin 0.30 (0.2-1.3) mg/dL AST 27 (14-36) U/L ALT 22 (0-35) U/L Alkaline Phosphatase 80 (38-126) U/L Serum Total Protein 6.1 L (6.3-8.2) g/dL Albumin 3.4 L (3.5-5.0) g/dL Slides for Path Review 09/18/24 09/18/24 09/18/24 Range/Units 04:30 04:30 07:19 WBC 6.5 (3.98-10.04) x10^3/uL RBC 3.56 L (3.93-5.22) x10^6/uL Hgb 9.9 L (11.2-15.7) g/dL Hct 32.0 L (34.1-44.9) % MCV 89.9 (79.4-94.8) fL MCH 27.8 (25.6-32.2) pg MCHC 30.9 L (32.2-35.5) g/dL RDW 15.4 H (11.7-14.4) % Plt Count 151 L (182-369) x10^3/uL MPV 13.3 H (9.4-12.3) fL Sodium 138 (135-145) mmol/L Potassium 3.5 (3.5-5.1) mmol/L Chloride 108 H (98-107) mmol/L Carbon Dioxide 20 L (22-30) mmol/L Anion Gap 13.7 (5-15) MEQ/L BUN 7 (7-17) mg/dL Creatinine 0.47 L (0.52-1.04) mg/dL Estimated GFR 125.7 ML/MIN Glucose 91 (74-106) mg/dL POC Glucometer 94 (74 to 106) mg/dL Calcium 8.5 (8.4-10.2) mg/dL Magnesium 1.7 (1.6-2.3) mg/dL Total Bilirubin (0.2-1.3) mg/dL AST (14-36) U/L ALT (0-35) U/L Alkaline Phosphatase (38-126) U/L Serum Total Protein (6.3-8.2) g/dL Albumin (3.5-5.0) g/dL Slides for Path Review YES 09/18/24 Range/Units 11:04 WBC (3.98-10.04) x10^3/uL RBC (3.93-5.22) x10^6/uL Hgb (11.2-15.7) g/dL Hct (34.1-44.9) % MCV (79.4-94.8) fL MCH (25.6-32.2) pg MCHC (32.2-35.5) g/dL RDW (11.7-14.4) % Plt Count (182-369) x10^3/uL MPV (9.4-12.3) fL Sodium (135-145) mmol/L Potassium (3.5-5.1) mmol/L Chloride (98-107) mmol/L Carbon Dioxide (22-30) mmol/L Anion Gap (5-15) MEQ/L BUN (7-17) mg/dL Creatinine (0.52-1.04) mg/dL Estimated GFR ML/MIN Glucose (74-106) mg/dL POC Glucometer 142 H (74 to 106) mg/dL Calcium (8.4-10.2) mg/dL Magnesium (1.6-2.3) mg/dL Total Bilirubin (0.2-1.3) mg/dL AST (14-36) U/L ALT (0-35) U/L Alkaline Phosphatase (38-126) U/L Serum Total Protein (6.3-8.2) g/dL Albumin (3.5-5.0) g/dL Slides for Path Review Radiology Exams: Radiology Procedures Category Date Time Status KIDNEY [US] Routine Exams 09/17/24 09:22 Completed Multi-Disciplinary Progress Notes: Multi-Disciplinary Progress Notes 09/18/24 14:00 (created 09/18/24 15:09) Case Management Note by Nubia Chen INSULIN RX FAXED TO [facility]- THEY RECEIVED AND STATED IT IS $0 COPAY. Initialized on 09/18/24 15:09 - END OF NOTE Assessment/Plan (1) UTI in Status: Acute Code(s): O23.40 - UNSP INFECTION OF URINARY TRACT IN , UNSP TRIMESTER (2) Back pain Status: Acute Code(s): M54.9 - DORSALGIA, UNSPECIFIED (3) Gestational diabetes Status: Acute Code(s): O24.419 - GESTATIONAL DIABETES MELLITUS IN , UNSP CONTROL (4) Adverse effect of metformin Status: Acute Code(s): T38.3X5A - ADVERSE EFFECT OF INSULIN AND ORAL HYPOGLYCEMIC DRUGS, INIT (5) Hydronephrosis Status: Acute Code(s): N13.30 - UNSPECIFIED HYDRONEPHROSIS (6) Acute respiratory alkalosis Status: Acute Code(s): E87.3 - ALKALOSIS (7) Hypokalemia Status: Acute Code(s): E87.6 - HYPOKALEMIA (8) HTN (hypertension) Status: Chronic Assessment & Plan: (1) UTI in Current Visit: No Status: Acute Assessment & Plan: - Ceftriaxone - IVF - UC pending - Renal US shows: Impression: Mild left hydronephrosis. Query related to current gravid status. Remaining renal sonograms negative. - Discussed findings with Dr. Graham -OB and he explained this is a common finding in - no need to transfer at this time. 09/18 - CBC. CMP reviewed - UC negative - Dr. Graham to send in OP antibiotic Code(s): O23.40 - UNSP INFECTION OF URINARY TRACT IN , UNSP TRIMESTER (2) Back pain Current Visit: Yes Status: Acute Assessment & Plan: - 2:2 left hydronephrosis - Heating pad - Tylenol for pain PRN 09/18 - resolved Code(s): M54.9 - DORSALGIA, UNSPECIFIED (3) Gestational diabetes Current Visit: Yes Status: Acute Assessment & Plan: - Stop metformin d/t side effects of diarrhea daily - Start humalog s/s, accuchecks ac/hs - Nursing to provide education for home use - Nutrition consult - A1C 5.82- 08/28/24- controlled 09/18 - Sent in Humalog s/s for OP Code(s): O24.419 - GESTATIONAL DIABETES MELLITUS IN , UNSP CONTROL (4) Adverse effect of metformin Current Visit: Yes Status: Acute Assessment & Plan: - Pt reports daily diarrhea from metformin - IVF - Stop metformin changed to humalog s/s Code(s): T38.3X5A - ADVERSE EFFECT OF INSULIN AND ORAL HYPOGLYCEMIC DRUGS, INIT (5) Hydronephrosis Current Visit: Yes Status: Acute Assessment & Plan: - Renal US shows: Impression: Mild left hydronephrosis. Query related to current gravid status. Remaining renal sonograms negative. - Discussed findings with Dr. Graham OB and he explained this is a common finding in - no need to transfer at this time. - IVF - CMP reviewed Code(s): N13.30 - UNSPECIFIED HYDRONEPHROSIS (6) Acute respiratory alkalosis Current Visit: Yes Status: Acute Assessment & Plan: - As seen on ABG - Likely 2: daily diarrhea from metformin - Stopped metformin - Replaced K+ - IVF - Antibiotic for UTI - recheck labs later today 09/18 - encourage oral hydration at home Code(s): E87.3 - ALKALOSIS (7) Hypokalemia Current Visit: Yes Status: Acute Assessment & Plan: - 2:2 diarrhea from metformin - K+ 3.2- trend - LR IVF - replaced - tele 09/18 - resolved Code(s): E87.6 - HYPOKALEMIA (8) HTN (hypertension) Current Visit: Yes Status: Chronic Assessment & Plan: - BP stable - Continue home med Code(s): I10 - ESSENTIAL (PRIMARY) HYPERTENSION
== END 2024-09-18 15:01 | disposition home or self-care (01) ==
LOC: OB 21:27 → EDSTATUS 21:27 → MED SURG 09-17 11:36
PROVIDERS: ADMIT Obstetrics & Gynecology; ATTEND Obstetrics & Gynecology
DX: O23.43 Unspecified infection of urinary tract in pregnancy, third trimester (principal); O13.3 Gestational [pregnancy-induced] hypertension without significant proteinuria, third trimester; M54.9 Dorsalgia, unspecified; Z59.19 Other inadequate housing; O24.419 Gestational diabetes mellitus in pregnancy, unspecified control; T38.3X5A Adverse effect of insulin and oral hypoglycemic [antidiabetic] drugs, initial encounter; Z3A.34 34 weeks gestation of pregnancy; N13.30 Unspecified hydronephrosis; E87.3 Alkalosis; E86.0 Dehydration; R19.7 Diarrhea, unspecified; E87.6 Hypokalemia; Z79.899 Other long term (current) drug therapy
CPT/HCPCS: 36415; 36600; 59025; 76770; 80048; 80053; 80307; 81001; 82375; 82803; 82947; 83735; 84132; 85025; 85027; 87086; 99213; G0378; Q3014; 93268; J0696; A9270-GY

== ENCOUNTER 2024-09-25 10:53 | Observation (INO) | payer MEDICAID ==
[2024-09-25 11:49] LABS: ALBUMIN 3.6 g/dL (3.5-5.0); ANION GAP 15.9 MEQ/L (5-15); BILIRUBIN,TOTAL 0.4 mg/dL (0.2-1.3); Calcium 8.8 mg/dL (8.4-10.2); Creatinine 1 0.44 mg/dL (0.52-1.04); EST GLOMERULAR FILTRATION RATE 127.7 ML/MIN; Potassium 3.5 mmol/L (3.5-5.1); Total Protein 6.5 g/dL (6.3-8.2); Uric Acid 5.3 mg/dL (2.6-6.0)
[2024-09-25 11:58] LABS: Absolute Neutrophil Ct (ANC) 6.04 x10^3/uL (1.56-6.13); BASOPHIL % 0.3 % (0.1-1.2); Basophil (Absolute #) 0.02 x10^3/uL (0.01-0.08); Eosinophil % 0.6 % (0.7-5.8); Eosinophil (Absolute #) 0.05 x10^3/uL (0.04-0.36); Hematocrit 32.8 % (34.1-44.9); Hemoglobin 10.8 g/dL (11.2-15.7); IMMATURE GRAN # 0.02 x10^3u/L (0.001-0.031); IMMATURE GRAN % 0.3 % (0.001-0.429); Lymphocyte (Absolute #) 1.33 x10^3/uL (1.18-3.74); Lymphocytes % 16.8 % (19.3-51.7); Mean Cell Volume 86.8 fL (79.4-94.8); Mean Corpuscular Hemoglobin 28.6 pg (25.6-32.2); Mean Corpuscular Hgb Concent. 32.9 g/dL (32.2-35.5); Mean Platelet Volume 12.2 fL (9.4-12.3); Monocyte (Absolute #) 0.45 x10^3/uL (0.24-0.86); Monocytes % 5.7 % (4.7-12.5); Neutrophil % 76.3 % (34.0-71.1); Platelet Count 270 x10^3/uL (182-369); Red Blood Count 3.78 x10^6/uL (3.93-5.22); Red Cell Distribution Width 14.6 % (11.7-14.4); White Blood Count 7.9 x10^3/uL (3.98-10.04)
[2024-09-25 12:16] VITALS: RESP 16
[2024-09-25 12:37] VITALS: O2SAT 96
[2024-09-25 12:54] LABS: Appearance Clear (Clear); Bacteria None Seen /HPF (None Seen); Bilirubin Negative (Negative); Blood Negative (Negative); Epithelial Cells None Seen /HPF (None Seen); Glucose, Urine Negative (Negative); Hyaline Casts NONE SEEN /LPF (0-2); Ketones Negative (Negative); Leukocyte Esterase Trace (Negative); Nitrite Negative (Negative); Protein,Urine Dip Negative (Negative); RBC 0-2 /HPF (0-5); Specific Gravity <=1.005 (1.005-1.030); Urobilinogen 0.2 mg/dL (0.2); WBC 0-2 /HPF (0-5)
[2024-09-25 13:12] LABS: Amphetamine,Urine NEGATIVE (NEGATIVE); Barbiturate,Urine NEGATIVE (NEGATIVE); Benzodiazepine,Urine NEGATIVE (NEGATIVE); Cocaine,Urine NEGATIVE (NEGATIVE); Methadone,Urine NEGATIVE (NEGATIVE); Opiate,Urine NEGATIVE (NEGATIVE); PCP,Urine NEGATIVE (NEGATIVE); THC,Urine NEGATIVE (NEGATIVE)
[2024-09-25 13:54] LABS: Creatinine, Urine Random 46.3 mg/dl; Protein Creatinine Ratio, Ran. 0.5 mg/mg (0.0-0.15)
[2024-09-25 14:13] VITALS: BP 128/65; PULSE 89
== END 2024-09-25 14:40 | disposition home or self-care (01) ==
LOC: OB.NST 10:53 → OB 11:49
PROVIDERS: ADMIT Obstetrics & Gynecology; ATTEND Obstetrics & Gynecology
DX: Z34.83 Encounter for supervision of other normal pregnancy, third trimester (principal); Z3A.35 35 weeks gestation of pregnancy
CPT/HCPCS: 36415; 80053; 80307; 81001; 82570; 84156; 84550; 85025; 87086; G0378; G0379

== ENCOUNTER 2024-10-08 14:26 | Inpatient (IN) | payer MEDICAID ==
[~2024-10-08 14:26] MED LIST changes: -MAALOX ES 30 ML UNIT DOSE ONE; -MAALOX ES 30 ML UNIT DOSE PO ONE; -MILK OF MAGNESIA 30 ML ONE; +Nubain 10 MG/ML IV PRN; -Protonix 40MG Tablet ONE; -Protonix 40MG Tablet PO ONE; +STADOL 2 MG IV PRN; -XYLOCAINE HCl Viscous ONE; -XYLOCAINE VISCOUS 2% 20 ML CUP PO ONE; -ZOFRAN ODT 4 MG ONE; -ZOFRAN ODT 4 MG PO ONE; +Zofran 4 MG/2 ML VIAL IV PRN
[2024-10-08 15:23] LABS: Absolute Neutrophil Ct (ANC) 7.09 x10^3/uL (1.56-6.13); BASOPHIL % 0.2 % (0.1-1.2); Basophil (Absolute #) 0.02 x10^3/uL (0.01-0.08); Eosinophil % 0.6 % (0.7-5.8); Eosinophil (Absolute #) 0.05 x10^3/uL (0.04-0.36); Hematocrit 33.8 % (34.1-44.9); Hemoglobin 11.2 g/dL (11.2-15.7); IMMATURE GRAN # 0.03 x10^3u/L (0.001-0.031); IMMATURE GRAN % 0.3 % (0.001-0.429); Lymphocyte (Absolute #) 1.29 x10^3/uL (1.18-3.74); Lymphocytes % 14.6 % (19.3-51.7); Mean Cell Volume 85.8 fL (79.4-94.8); Mean Corpuscular Hemoglobin 28.4 pg (25.6-32.2); Mean Corpuscular Hgb Concent. 33.1 g/dL (32.2-35.5); Mean Platelet Volume 12.2 fL (9.4-12.3); Monocyte (Absolute #) 0.37 x10^3/uL (0.24-0.86); Monocytes % 4.2 % (4.7-12.5); Neutrophil % 80.1 % (34.0-71.1); Platelet Count 264 x10^3/uL (182-369); Red Blood Count 3.94 x10^6/uL (3.93-5.22); Red Cell Distribution Width 14.5 % (11.7-14.4); White Blood Count 8.9 x10^3/uL (3.98-10.04)
[2024-10-08 15:46] LABS: Amphetamine,Urine NEGATIVE (NEGATIVE); Barbiturate,Urine NEGATIVE (NEGATIVE); Benzodiazepine,Urine NEGATIVE (NEGATIVE); Cocaine,Urine NEGATIVE (NEGATIVE); Methadone,Urine NEGATIVE (NEGATIVE); Opiate,Urine NEGATIVE (NEGATIVE); PCP,Urine NEGATIVE (NEGATIVE); THC,Urine NEGATIVE (NEGATIVE)
[2024-10-08 16:17] LABS: Appearance Cloudy (Clear); Bacteria Many /HPF (None Seen); Bilirubin Small (Negative); Blood Small (Negative); Epithelial Cells Many /HPF (None Seen); Glucose, Urine Negative (Negative); Ketones 40 (Negative); Leukocyte Esterase Moderate (Negative); Nitrite Negative (Negative); Protein,Urine Dip 100 (Negative); RBC 21-50 /HPF (0-5); Specific Gravity 1.025 (1.005-1.030); WBC 51-100 /HPF (0-5)
[2024-10-08 17:06] LABS: ABO TYPING A; Antibody Screen NEGATIVE (NEGATIVE); RH TYPING POSITIVE
[2024-10-08] MEDS ORDERED: FENTANYL 2 MCG-BUPIV 0.125%-NS 250 ML Epidur 250 ML EPIDURAL SCH (21:00)
[2024-10-08] MEDS ORDERED: Ephedrine Sulfate 50 MG/ML IV PRN (21:00)
[2024-10-08] MEDS: Trandate 100 MG PO SCH (23:47)
[2024-10-09] MEDS: STADOL 2 MG IV PRN (04:07)
[2024-10-09] MEDS: Lactated Ringers 1,000 ML IV ONE (06:20)
[2024-10-09] MEDS: Lactated Ringers 1,000 ML IV SCH (06:50)
[2024-10-09] MEDS ORDERED: XYLOCAINE 1% HCL 20 ML MDV IJ PRN (07:00)
[2024-10-09] MEDS: FENTANYL 2 MCG-BUPIV 0.125%-NS 250 ML Epidur 250 ML EPIDURAL SCH (07:03)
[2024-10-09] MEDS: PITOCIN 30 UNITS/ LR 500 ML 30 UNITS/500 ML PLAST..BAG IV SCH (07:22)
[2024-10-09] MEDS ORDERED: LANSINOH 40 GM TOP PRN (10:00)
[2024-10-09] MEDS ORDERED: Mylicon 80MG PO PRN (10:00)
[2024-10-09] MEDS ORDERED: Ambien 10 MG PO PRN (10:00)
[2024-10-09] MEDS ORDERED: Anucort-HC SUPPOSITORY PR PRN (10:00)
[2024-10-09] MEDS ORDERED: Dulcolax 10 MG SUPP PR PRN (10:00)
[2024-10-09] MEDS: FERREX 150 PO SCH (10:16)
[2024-10-09] MEDS ORDERED: PITOCIN 30 UNITS/ LR 500 ML 30 UNITS/500 ML PLAST..BAG IV SCH (12:00)
[2024-10-09 12:03] LABS: ALBUMIN 3.3 g/dL (3.5-5.0); ANION GAP 13.4 MEQ/L (5-15); BILIRUBIN,TOTAL 0.5 mg/dL (0.2-1.3); Calcium 8.5 mg/dL (8.4-10.2); Creatinine 1 0.46 mg/dL (0.52-1.04); EST GLOMERULAR FILTRATION RATE 126.3 ML/MIN; Potassium 3.1 mmol/L (3.5-5.1); Total Protein 6.1 g/dL (6.3-8.2)
[2024-10-09 12:06] LABS: INR 0.9 (0.8-3.0); PROTIME 9.9 SECONDS (9.4-12.5); PTT 26.2 SECONDS (25.1-36.5)
[2024-10-09] MEDS: Magnesium Sulfate 40 Gm/1000 Ml H2O Premix*** 1,000 ML IV SCH (12:48)
[2024-10-09] MEDS: Klor Con PO SCH (16:32)
[2024-10-09] MEDS: TYLENOL EXTRA STRENGTH 500 MG PO PRN (17:09)
[2024-10-09] MEDS: Docusate Sodium 100 MG PO SCH (20:56)
[2024-10-10] MEDS: MOTRIN 400 MG PO PRN (01:34)
[2024-10-10 04:19] LABS: Absolute Neutrophil Ct (ANC) 6.79 x10^3/uL (1.56-6.13); BASOPHIL % 0.3 % (0.1-1.2); Basophil (Absolute #) 0.03 x10^3/uL (0.01-0.08); Eosinophil % 1.5 % (0.7-5.8); Eosinophil (Absolute #) 0.13 x10^3/uL (0.04-0.36); Hematocrit 29.6 % (34.1-44.9); IMMATURE GRAN # 0.04 x10^3u/L (0.001-0.031); IMMATURE GRAN % 0.4 % (0.001-0.429); Lymphocyte (Absolute #) 1.39 x10^3/uL (1.18-3.74); Lymphocytes % 15.6 % (19.3-51.7); Mean Cell Volume 86.5 fL (79.4-94.8); Mean Corpuscular Hemoglobin 29.2 pg (25.6-32.2); Mean Corpuscular Hgb Concent. 33.8 g/dL (32.2-35.5); Mean Platelet Volume 12.1 fL (9.4-12.3); Monocyte (Absolute #) 0.54 x10^3/uL (0.24-0.86); Monocytes % 6.1 % (4.7-12.5); Neutrophil % 76.1 % (34.0-71.1); Platelet Count 172 x10^3/uL (182-369); Red Blood Count 3.42 x10^6/uL (3.93-5.22); Red Cell Distribution Width 14.6 % (11.7-14.4); White Blood Count 8.9 x10^3/uL (3.98-10.04)
[2024-10-10 04:24] LABS: Creatinine 1 0.49 mg/dL (0.52-1.04); EST GLOMERULAR FILTRATION RATE 124.4 ML/MIN; Potassium 3.3 mmol/L (3.5-5.1)
[2024-10-10 04:25] LABS: MAGNESIUM 5.7 mg/dL (1.6-2.3)
--- NOTE | 2024-10-10 07:51 | PCM.BN ---
Brief Admission Note - Admission Note Brief Admisson Note: Patient admitted @ 10/09/24 07:43 to OB. Medication List reviewed and reconciled. 39 YO IUP AT 37 3/7 WKS WITH HX OF GESTATIONAL HTN ON LABETOLOL 100MG BID AND NONCOMPLIANT GESTATIONAL DIABETES HERE FOR ADMISSION FOR INDUCTION WITH VAGINAL CYTOTEC. PT HAD BEEN ON METFORMIN DURING HOWEVER STOPPED TAKING IT ON HER OWN DUE TO DIARRHEA. DENIES COMPLAINTS AT THIS TIME. LABS; PROTEINURIA IN OFFICE A/P IUP AT 37 3/7 WKS GESTATION WITH GEST HTN AND NONCOMPLIANT GEST DIABETES WILL ADMIT FOR INDUCTION WITH VAGINAL CYTOTEC
--- NOTE | 2024-10-10 07:55 | PCM.NOTE ---
Date and Time: 10/10/24 075 Subjective Assessment: SP PPD 1 PT RESTING IN BED AND DOING WELL CURRENTLY ON MAGNESIUM SULFATE AND RESTING COMFORTABLY. DENIES ALVAREZ OR VISUAL DISTURBANCE. 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 VSS AFEBRILE ABD; SOFT UTERUS; FIRM LOCHIA; MILD HGB; 10 MG LEVEL 5.7 A/P SP PPD 1 WITH HX OF PREECLAMPSIA WITH SEVERE FEATURES WILL DC MAGNESIUM SULFATE AT THIS TIME SINCE STABLE SINCE MG LEVEL 5.7 WILL MONITOR BP WILL CONTINUE LABETOLOL 100MG BID Objective Data Vital Signs: Vital Signs - 24 hr Temp Pulse Resp BP BP Pulse Ox 10/10/24 07:00 97.6 F 83 18 143/75 98 10/10/24 06:00 80 20 140/65 98 10/10/24 05:00 82 18 121/59 96 10/10/24 04:00 86 18 114/59 99 10/10/24 03:00 83 18 120/66 98 10/10/24 02:00 82 17 135/81 97 10/10/24 01:00 97.6 F 90 20 139/66 99 10/10/24 00:00 82 18 137/69 100 10/09/24 23:00 86 18 136/77 96 10/09/24 22:00 81 18 151/81 97 10/09/24 21:00 97 H 18 146/79 146/79 98 10/09/24 20:00 86 20 134/69 134/69 100 10/09/24 19:00 98.1 F 82 20 128/61 128/61 98 10/09/24 17:00 92 H 18 147/84 98 10/09/24 16:00 98 H 14 133/68 98 10/09/24 15:30 98 H 16 136/71 99 10/09/24 15:00 89 18 158/81 99 10/09/24 14:30 79 16 143/69 98 10/09/24 14:15 82 16 139/66 98 10/09/24 14:00 91 H 16 98 10/09/24 13:45 100 H 16 139/79 98 10/09/24 13:30 83 18 137/81 97 10/09/24 13:15 86 16 127/61 98 10/09/24 13:00 77 14 141/67 97 10/09/24 12:45 14 10/09/24 12:30 14 10/09/24 12:15 14 10/09/24 12:00 80 16 168/81 98 10/09/24 11:45 72 16 142/71 98 10/09/24 11:30 77 16 160/88 99 10/09/24 11:15 76 16 160/83 100 10/09/24 11:00 82 16 160/83 98 10/09/24 10:45 73 14 144/76 94 L 10/09/24 10:30 71 14 156/78 94 L 10/09/24 10:15 71 14 155/78 97 10/09/24 10:00 67 14 149/70 97 10/09/24 09:45 77 14 143/80 97 10/09/24 09:30 75 14 150/72 97 10/09/24 09:15 68 14 117/82 97 10/09/24 09:00 78 16 146/92 97 10/09/24 08:45 58 L 14 138/84 100 10/09/24 08:30 69 16 138/84 100 10/09/24 08:15 67 14 138/71 100 10/09/24 08:00 64 16 136/70 100 Pain Assessment - Last Documented Pain Intensity [Anterior] 5 Pain Intensity 1 Pain Scale Used 0-10 Pain Scale Intake and Output: Intake & Output 10/07/24 10/08/24 10/09/24 10/10/24 11:59 11:59 11:59 11:59 Intake Total 1850 5521 Output Total 300 4100 Balance 1550 1421 Weight 91.172 kg Lab Results: Lab Results-Last 24 Hours 10/09/24 10/09/24 10/09/24 Range/Units 11:52 11:52 11:52 WBC (3.98-10.04) x10^3/uL RBC (3.93-5.22) x10^6/uL Hgb (11.2-15.7) g/dL Hct (34.1-44.9) % MCV (79.4-94.8) fL MCH (25.6-32.2) pg MCHC (32.2-35.5) g/dL RDW (11.7-14.4) % Plt Count (182-369) x10^3/uL MPV (9.4-12.3) fL Gran % (34.0-71.1) % Immature Gran % (Auto) (0.001-0.429) % Nucleat RBC Rel Count (0.00-0.2) % Eos # (Auto) (0.04-0.36) x10^3/uL Immature Gran # (Auto) (0.001-0.031) x10^3u/L Absolute Lymphs (auto) (1.18-3.74) x10^3/uL Absolute Monos (auto) (0.24-0.86) x10^3/uL Absolute Nucleated RBC (0.00-0.012) x10^3u/L Lymphocytes % (19.3-51.7) % Monocytes % (4.7-12.5) % Eosinophils % (0.7-5.8) % Basophils % (0.1-1.2) % Absolute Granulocytes (1.56-6.13) x10^3/uL Basophils # (0.01-0.08) x10^3/uL PT 9.9 (9.4-12.5) SECONDS INR 0.90 (0.8-3.0) APTT 26.2 (25.1-36.5) SECONDS Sodium 136 (135-145) mmol/L Potassium 3.1 L (3.5-5.1) mmol/L Chloride 106 (98-107) mmol/L Carbon Dioxide 20 L (22-30) mmol/L Anion Gap 13.4 (5-15) MEQ/L BUN 5 L (7-17) mg/dL Creatinine 0.46 L (0.52-1.04) mg/dL Estimated GFR 126.3 ML/MIN Glucose 83 (74-106) mg/dL Calcium 8.5 (8.4-10.2) mg/dL Magnesium 1.6 (1.6-2.3) mg/dL Total Bilirubin 0.50 (0.2-1.3) mg/dL AST 23 (14-36) U/L ALT 18 (0-35) U/L Alkaline Phosphatase 100 (38-126) U/L Serum Total Protein 6.1 L (6.3-8.2) g/dL Albumin 3.3 L (3.5-5.0) g/dL 10/09/24 10/09/24 10/09/24 Range/Units 19:37 19:37 23:55 WBC (3.98-10.04) x10^3/uL RBC (3.93-5.22) x10^6/uL Hgb (11.2-15.7) g/dL Hct (34.1-44.9) % MCV (79.4-94.8) fL MCH (25.6-32.2) pg MCHC (32.2-35.5) g/dL RDW (11.7-14.4) % Plt Count (182-369) x10^3/uL MPV (9.4-12.3) fL Gran % (34.0-71.1) % Immature Gran % (Auto) (0.001-0.429) % Nucleat RBC Rel Count (0.00-0.2) % Eos # (Auto) (0.04-0.36) x10^3/uL Immature Gran # (Auto) (0.001-0.031) x10^3u/L Absolute Lymphs (auto) (1.18-3.74) x10^3/uL Absolute Monos (auto) (0.24-0.86) x10^3/uL Absolute Nucleated RBC (0.00-0.012) x10^3u/L Lymphocytes % (19.3-51.7) % Monocytes % (4.7-12.5) % Eosinophils % (0.7-5.8) % Basophils % (0.1-1.2) % Absolute Granulocytes (1.56-6.13) x10^3/uL Basophils # (0.01-0.08) x10^3/uL PT (9.4-12.5) SECONDS INR (0.8-3.0) APTT (25.1-36.5) SECONDS Sodium (135-145) mmol/L Potassium 3.0 L* 3.5 (3.5-5.1) mmol/L Chloride (98-107) mmol/L Carbon Dioxide (22-30) mmol/L Anion Gap (5-15) MEQ/L BUN (7-17) mg/dL Creatinine (0.52-1.04) mg/dL Estimated GFR ML/MIN Glucose (74-106) mg/dL Calcium (8.4-10.2) mg/dL Magnesium 4.9 H (1.6-2.3) mg/dL Total Bilirubin (0.2-1.3) mg/dL AST (14-36) U/L ALT (0-35) U/L Alkaline Phosphatase (38-126) U/L Serum Total Protein (6.3-8.2) g/dL Albumin (3.5-5.0) g/dL 10/10/24 10/10/24 10/10/24 Range/Units 00:10 04:08 04:08 WBC 8.9 (3.98-10.04) x10^3/uL RBC 3.42 L (3.93-5.22) x10^6/uL Hgb 10.0 L (11.2-15.7) g/dL Hct 29.6 L (34.1-44.9) % MCV 86.5 (79.4-94.8) fL MCH 29.2 (25.6-32.2) pg MCHC 33.8 (32.2-35.5) g/dL RDW 14.6 H (11.7-14.4) % Plt Count 172 L D (182-369) x10^3/uL MPV 12.1 (9.4-12.3) fL Gran % 76.1 H (34.0-71.1) % Immature Gran % (Auto) 0.4 (0.001-0.429) % Nucleat RBC Rel Count 0.0 (0.00-0.2) % Eos # (Auto) 0.13 (0.04-0.36) x10^3/uL Immature Gran # (Auto) 0.04 H (0.001-0.031) x10^3u/L Absolute Lymphs (auto) 1.39 (1.18-3.74) x10^3/uL Absolute Monos (auto) 0.54 (0.24-0.86) x10^3/uL Absolute Nucleated RBC 0.00 (0.00-0.012) x10^3u/L Lymphocytes % 15.6 L (19.3-51.7) % Monocytes % 6.1 (4.7-12.5) % Eosinophils % 1.5 (0.7-5.8) % Basophils % 0.3 (0.1-1.2) % Absolute Granulocytes 6.79 H (1.56-6.13) x10^3/uL Basophils # 0.03 (0.01-0.08) x10^3/uL PT (9.4-12.5) SECONDS INR (0.8-3.0) APTT (25.1-36.5) SECONDS Sodium 134 L (135-145) mmol/L Potassium 3.3 L (3.5-5.1) mmol/L Chloride 104 (98-107) mmol/L Carbon Dioxide 22 (22-30) mmol/L Anion Gap 11.0 (5-15) MEQ/L BUN 4 L (7-17) mg/dL Creatinine 0.49 L (0.52-1.04) mg/dL Estimated GFR 124.4 ML/MIN Glucose 119 H (74-106) mg/dL Calcium 7.0 L D (8.4-10.2) mg/dL Magnesium 5.3 H* 5.7 H* (1.6-2.3) mg/dL Total Bilirubin (0.2-1.3) mg/dL AST (14-36) U/L ALT (0-35) U/L Alkaline Phosphatase (38-126) U/L Serum Total Protein (6.3-8.2) g/dL Albumin (3.5-5.0) g/dL Medications: Medications Generic Name Dose Route Start Last Admin Trade Name Freq PRN Reason Stop Dose Admin Acetaminophen 1,000 mg 10/08/24 14:00 10/10/24 03:03 Acetaminophen 500 Mg Tablet PO 11/07/24 13:59 1,000 mg Q4H PRN PRN Administration HEADACHE/MILD PAIN/ FEVER Benzocaine 1 gm 10/09/24 10:00 Benzocaine/Lanolin/Aloe Vera 85 Gm Can TP 11/08/24 09:59 UD PRN as needed Bisacodyl 10 mg 10/09/24 10:00 Bisacodyl 10 Mg Supp.Rect RI 11/08/24 09:59 PRN PRN CONSTIPATION Docusate Sodium 100 mg 10/09/24 22:00 10/09/24 20:56 Docusate Sodium 100 Mg Capsule PO 11/08/24 21:59 100 mg BID COLEEN Administration Emollient Ointment 0 gm 10/09/24 10:00 Lansinoh 40 Gm Tube TOP 11/08/24 09:59 PRN PRN PAIN Hydrocortisone 0.5 gm 10/09/24 10:00 Hydrocortisone 1% Cream 28 Gm Tube TP 11/08/24 09:59 PRN PRN ITCHING Hydrocortisone Acetate 25 mg 10/09/24 10:00 Hydrocortisone Acetate 25 Mg Supp.Rect RI 11/08/24 09:59 PRN PRN HEMORRHOIDS Ibuprofen 800 mg 10/09/24 10:00 10/10/24 01:34 Ibuprofen 400 Mg Tablet PO 11/08/24 09:59 800 mg Q6H PRN PRN Administration MODERATE PAIN Labetalol HCl 100 mg 10/08/24 23:00 10/09/24 20:56 Labetalol Hcl 100 Mg Tablet PO 11/07/24 22:59 100 mg BID COLEEN Administration Ondansetron HCl 4 mg 10/08/24 14:00 Ondansetron Hcl 4 Mg/2 Ml Vial IV 11/07/24 13:59 Q4H PRN PRN NAUSEA/VOMITING Polysaccharide Iron Complex 150 mg 10/09/24 10:00 10/09/24 10:16 Iron Polysaccharides Complex 150 Mg Capsule PO 11/08/24 09:59 Not Given DAILY COLEEN Simethicone 80 mg 10/09/24 10:00 Simethicone 80 Mg Tab.Chew PO 11/08/24 09:59 QID PRN PRN INDIGESTION Kathy Denney 1 pad 10/09/24 10:00 Kathy Denney 1 Pad Med..Pad TP 11/08/24 09:59 PRN PRN ITCHING Zolpidem Tartrate 10 mg 10/09/24 10:00 Zolpidem Tartrate 10 Mg Tablet PO 11/08/24 09:59 HS PRN PRN INSOMNIA Discontinued Medications Generic Name Dose Route Start Last Admin Trade Name Freq PRN Reason Stop Dose Admin Butorphanol Tartrate 1 mg 10/08/24 14:00 Butorphanol Tartrate 2 Mg/Ml Vial IV 11/07/24 13:59 Q4H PRN PRN MODERATE PAIN Butorphanol Tartrate 1 - 2 mg 10/08/24 22:28 10/09/24 04:07 Butorphanol Tartrate 2 Mg/Ml Vial IV 11/07/24 22:24 2 mg Q3H PRN PRN Administration MODERATE PAIN Diphtheria/Tetanus/Acell Pertussis 0.5 ml 10/09/24 10:00 Tdap --Diph,Pertuss(Acell),Tet Vac/Pf 0.5 Ml Vial IM 10/09/24 10:01 .ONCE ONE Ephedrine Sulfate 10 mg 10/08/24 21:00 Ephedrine Sulfate 50 Mg/Ml IV 11/07/24 20:59 PRN PRN SBP<100 Oxytocin/Lactated Ringer's 30 units in 500 mls @ 0 mls/hr 10/08/24 07:00 10/09/24 07:22 Pitocin 30 Units/ Lr 500 Ml IV 11/07/24 06:59 2 mls/hr .Q0M COLEEN Administration Protocol Titrate Oxytocin/Lactated Ringer's 30 units in 500 mls @ 5 mls/hr 10/09/24 12:00 Pitocin 30 Units/ Lr 500 Ml IV 11/08/24 11:59 .Q24H COLEEN Lactated Ringer's 1,000 mls @ 125 mls/hr 10/09/24 07:00 10/10/24 06:32 Lactated Ringers IV 11/08/24 06:59 125 mls/hr .Q8H COLEEN Administration Lactated Ringer's 1,000 mls @ 999 mls/hr 10/08/24 21:00 10/09/24 06:20 Lactated Ringers IV 10/08/24 22:00 999 mls/hr .Q1H1M ONE Administration FENTANYL/BUPIVACAINE/NS/PF 250 mls @ 0 mls/hr 10/08/24 21:00 10/09/24 07:03 Fentanyl 2 Mcg-Bupiv 0.125%-Ns 250 Ml Epidur EPIDURAL 11/07/24 20:59 10 mls/hr .Q0M COLEEN Administration Protocol Titrate Magnesium Sulfate 1,000 mls @ 50 mls/hr 10/09/24 11:30 10/10/24 05:21 Magnesium Sulfate 40 Gm/1000 Ml H2o Premix IV 11/08/24 11:29 50 mls/hr .Q20H COLEEN Administration Lidocaine HCl 10 ml 10/09/24 07:00 Lidocaine Hcl 1% 20 Ml Mdv 20 Ml Ml IJ 11/08/24 06:59 PRN PRN PAIN Misoprostol 25 mcg 10/08/24 14:00 10/09/24 03:32 Misoprostol 25 Mcg ("06/29") Tab INTRAVAGIN 11/07/24 13:59 25 mcg Q4H COLEEN Administration Nalbuphine HCl 5 - 10 mg 10/08/24 14:00 Nalbuphine Hcl 10 Mg/Ml Ampul IV 11/07/24 13:59 Q4H PRN PRN PAIN Potassium Chloride 20 meq 10/09/24 16:00 10/09/24 23:38 Potassium Chloride Tab 10 Meq Tab PO 11/08/24 15:59 20 meq Q2H COLEEN Administration Assessment/Plan (1) Severe pre-eclampsia affecting childbirth Current Visit: Yes Status: Acute Code(s): O14.14 - SEVERE PRE-ECLAMPSIA COMPLICATING CHILDBIRTH (2) Vaginal delivery Current Visit: Yes Status: Acute Code(s): O80 - ENCOUNTER FOR FULL-TERM UNCOMPLICATED DELIVERY (3) Hypokalemia Current Visit: No Status: Acute Code(s): E87.6 - HYPOKALEMIA
[2024-10-10] MEDS: Adacel Vial IM ONE (09:38)
[2024-10-10 12:59] LABS: RPR Non Reactive (Non Reactive)
[2024-10-10] MEDS: TRANDATE 20 MG/4 ML SYRINGE IV ONE (15:36)
[2024-10-10] MEDS: Adalat CC 30 MG TABLET PO ONE (17:07)
[2024-10-10] MEDS ORDERED: TRANDATE 100 MG/20 ML MDV FOR DRIP IV ONE (19:02)
[2024-10-10] MEDS: TRANDATE 100MG/20 ML MDV IV ONE (19:05)
[2024-10-10] MEDS ORDERED: TRANDATE 20 MG/4 ML SYRINGE IV ONE ×3 (20:52→21:04)
[2024-10-10] MEDS: TRANDATE 100 MG/20 ML MDV FOR DRIP IV STA (21:06)
[2024-10-10] MEDS ORDERED: APRESOLINE 20 MG/ML INJ ONE (21:56)
[2024-10-10] MEDS: Trandate 100 MG PO SCH (21:57)
[2024-10-10] MEDS: APRESOLINE 20 MG/ML INJ IV ONE (21:59)
[2024-10-10] MEDS ORDERED: Trandate 100 MG PO SCH (22:00)
[2024-10-11] MEDS: APRESOLINE 20 MG/ML INJ IV ONE (02:19)
[2024-10-11] MEDS: Lasix 20 MG/2 ML IV ONE (02:36)
[2024-10-11 04:54] LABS: Absolute Neutrophil Ct (ANC) 6.51 x10^3/uL (1.56-6.13); BASOPHIL % 0.3 % (0.1-1.2); Basophil (Absolute #) 0.03 x10^3/uL (0.01-0.08); Eosinophil % 1.4 % (0.7-5.8); Eosinophil (Absolute #) 0.12 x10^3/uL (0.04-0.36); Hematocrit 33.9 % (34.1-44.9); Hemoglobin 11.1 g/dL (11.2-15.7); IMMATURE GRAN # 0.05 x10^3u/L (0.001-0.031); IMMATURE GRAN % 0.6 % (0.001-0.429); Lymphocytes % 16.3 % (19.3-51.7); Mean Cell Volume 86.3 fL (79.4-94.8); Mean Corpuscular Hemoglobin 28.2 pg (25.6-32.2); Mean Corpuscular Hgb Concent. 32.7 g/dL (32.2-35.5); Mean Platelet Volume 11.7 fL (9.4-12.3); Monocyte (Absolute #) 0.48 x10^3/uL (0.24-0.86); Monocytes % 5.6 % (4.7-12.5); Neutrophil % 75.8 % (34.0-71.1); Platelet Count 207 x10^3/uL (182-369); Red Blood Count 3.93 x10^6/uL (3.93-5.22); Red Cell Distribution Width 14.9 % (11.7-14.4); White Blood Count 8.6 x10^3/uL (3.98-10.04)
[2024-10-11 05:08] LABS: ALBUMIN 3.4 g/dL (3.5-5.0); ANION GAP 12.4 MEQ/L (5-15); BILIRUBIN,TOTAL 0.3 mg/dL (0.2-1.3); Calcium 9.2 mg/dL (8.4-10.2); Creatinine 1 0.58 mg/dL (0.52-1.04); EST GLOMERULAR FILTRATION RATE 119.5 ML/MIN; Potassium 3.1 mmol/L (3.5-5.1); Total Protein 6.3 g/dL (6.3-8.2)
--- NOTE | 2024-10-11 07:31 | PCM.NOTE ---
Date and Time: 10/11/24725 Subjective Assessment: ppd 2 sp pt resting in bed and doing well however has severe htn when getting up to walk and returning to bed. pt had multiple doses of iv htn medication given to her last night and yesterday due to severe htn. currently on labetolol 300mg tid and procardia xl 30mg and lasix 20mg. denies headache or visual disturbance. magnesium discontinued yesterday. vss afebrile abd; soft uterus; firm lochia; mild potassium; 3.1 a/p sp ppd 2 with preeclampsia with severe features magnesium discontinued yesterday iv htn medication still required to stabilize bp currently on labetolol 300mg tid currently on procardia xl 30mg once daily however will now increase to bid lasix given last night with approximately 3 liters from urinary output will stagger bp medication throughout the day today to give labetolol 300mg tid with procardia 30mg xl bid will supplement potassium with potassium protocol will add another dose of lasix at noon today Objective Data Vital Signs: Vital Signs - 24 hr Temp Pulse Resp BP BP BP Pulse Ox 10/11/24 06:30 135/75 10/11/24 06:00 132/64 10/11/24 05:50 138/71 10/11/24 05:30 144/73 10/11/24 05:20 147/72 10/11/24 05:00 136/64 10/11/24 04:50 143/67 10/11/24 04:30 131/66 10/11/24 04:20 141/70 10/11/24 04:10 137/70 10/11/24 04:00 157/74 10/11/24 03:50 153/74 10/11/24 03:40 157/77 10/11/24 03:30 125/63 10/11/24 03:20 137/66 10/11/24 03:15 136/68 10/11/24 02:50 156/75 10/11/24 02:40 140/71 10/11/24 02:30 136/70 10/11/24 02:20 156/72 10/11/24 02:00 98.4 F 80 16 161/74 98 10/11/24 01:50 156/72 10/11/24 01:40 159/72 10/11/24 01:20 158/72 10/11/24 01:10 160/72 10/11/24 01:00 85 16 160/72 98 10/11/24 00:50 155/68 10/11/24 00:37 173/81 10/11/24 00:20 159/78 10/10/24 23:50 152/75 10/10/24 23:40 154/80 10/10/24 23:20 148/74 10/10/24 23:10 141/64 10/10/24 23:00 136/62 10/10/24 22:40 139/68 10/10/24 22:30 134/66 10/10/24 22:20 137/69 10/10/24 22:10 149/69 10/10/24 22:00 155/77 10/10/24 21:50 148/74 10/10/24 21:40 160/88 10/10/24 21:30 145/87 10/10/24 21:10 145/82 10/10/24 21:00 97.3 F 83 18 147/81 147/81 10/10/24 20:50 177/77 10/10/24 20:40 188/88 10/10/24 20:30 180/82 10/10/24 20:20 173/77 10/10/24 20:10 180/77 10/10/24 20:00 159/67 10/10/24 19:50 150/68 10/10/24 19:40 158/72 10/10/24 19:30 155/65 10/10/24 19:20 159/71 10/10/24 19:10 145/72 10/10/24 19:00 190/88 10/10/24 18:45 195/93 10/10/24 18:20 154/73 10/10/24 18:00 159/74 10/10/24 17:50 153/70 10/10/24 17:35 158/67 10/10/24 17:30 183/84 10/10/24 16:48 73 18 143/67 99 10/10/24 16:34 75 18 149/67 99 10/10/24 16:30 78 18 173/82 10/10/24 16:18 78 18 162/74 98 10/10/24 15:58 89 18 143/94 99 10/10/24 15:55 85 18 157/82 96 10/10/24 15:46 157/82 96 10/10/24 15:36 162/88 97 10/10/24 14:48 81 18 170/88 97 10/10/24 14:47 169/85 10/10/24 12:15 97.9 F 84 18 159/75 100 10/10/24 09:45 86 18 150/77 100 Pain Assessment - Last Documented Pain Intensity [Anterior] 5 Pain Intensity 5 Pain Scale Used 0-10 Pain Scale Intake and Output: Intake & Output 10/08/24 10/09/24 10/10/24 10/11/24 11:59 11:59 11:59 11:59 Intake Total 1850 5521 500 Output Total 300 4400 2625 Balance 1550 1121 -2125 Weight 91.172 kg Lab Results: Lab Results-Last 24 Hours 10/08/24 10/11/24 10/11/24 Range/Units 15:15 04:50 04:50 WBC 8.6 (3.98-10.04) x10^3/uL RBC 3.93 (3.93-5.22) x10^6/uL Hgb 11.1 L (11.2-15.7) g/dL Hct 33.9 L (34.1-44.9) % MCV 86.3 (79.4-94.8) fL MCH 28.2 (25.6-32.2) pg MCHC 32.7 (32.2-35.5) g/dL RDW 14.9 H (11.7-14.4) % Plt Count 207 (182-369) x10^3/uL MPV 11.7 (9.4-12.3) fL Gran % 75.8 H (34.0-71.1) % Immature Gran % (Auto) 0.6 H (0.001-0.429) % Nucleat RBC Rel Count 0.0 (0.00-0.2) % Eos # (Auto) 0.12 (0.04-0.36) x10^3/uL Immature Gran # (Auto) 0.05 H (0.001-0.031) x10^3u/L Absolute Lymphs (auto) 1.40 (1.18-3.74) x10^3/uL Absolute Monos (auto) 0.48 (0.24-0.86) x10^3/uL Absolute Nucleated RBC 0.00 (0.00-0.012) x10^3u/L Lymphocytes % 16.3 L (19.3-51.7) % Monocytes % 5.6 (4.7-12.5) % Eosinophils % 1.4 (0.7-5.8) % Basophils % 0.3 (0.1-1.2) % Absolute Granulocytes 6.51 H (1.56-6.13) x10^3/uL Basophils # 0.03 (0.01-0.08) x10^3/uL Sodium 139 (135-145) mmol/L Potassium 3.1 L (3.5-5.1) mmol/L Chloride 103 (98-107) mmol/L Carbon Dioxide 27 (22-30) mmol/L Anion Gap 12.4 (5-15) MEQ/L BUN 8 (7-17) mg/dL Creatinine 0.58 (0.52-1.04) mg/dL Estimated GFR 119.5 ML/MIN Glucose 89 (74-106) mg/dL Calcium 9.2 D (8.4-10.2) mg/dL Total Bilirubin 0.30 (0.2-1.3) mg/dL AST 21 (14-36) U/L ALT 16 (0-35) U/L Alkaline Phosphatase 87 (38-126) U/L Serum Total Protein 6.3 (6.3-8.2) g/dL Albumin 3.4 L (3.5-5.0) g/dL RPR Non Reactive (Non Reactive) Medications: Medications Generic Name Dose Route Start Last Admin Trade Name Freq PRN Reason Stop Dose Admin Acetaminophen 1,000 mg 10/08/24 14:00 10/10/24 23:15 Acetaminophen 500 Mg Tablet PO 11/07/24 13:59 1,000 mg Q4H PRN PRN Administration HEADACHE/MILD PAIN/ FEVER Benzocaine 1 gm 10/09/24 10:00 Benzocaine/Lanolin/Aloe Vera 85 Gm Can TP 11/08/24 09:59 UD PRN as needed Bisacodyl 10 mg 10/09/24 10:00 Bisacodyl 10 Mg Supp.Rect MD 11/08/24 09:59 PRN PRN CONSTIPATION Docusate Sodium 100 mg 10/09/24 22:00 10/10/24 21:57 Docusate Sodium 100 Mg Capsule PO 11/08/24 21:59 100 mg BID COLEEN Administration Emollient Ointment 0 gm 10/09/24 10:00 Lansinoh 40 Gm Tube TOP 11/08/24 09:59 PRN PRN PAIN Hydrocortisone 0.5 gm 10/09/24 10:00 Hydrocortisone 1% Cream 28 Gm Tube TP 11/08/24 09:59 PRN PRN ITCHING Hydrocortisone Acetate 25 mg 10/09/24 10:00 Hydrocortisone Acetate 25 Mg Supp.Rect MD 11/08/24 09:59 PRN PRN HEMORRHOIDS Ibuprofen 800 mg 10/09/24 10:00 10/10/24 01:34 Ibuprofen 400 Mg Tablet PO 11/08/24 09:59 800 mg Q6H PRN PRN Administration MODERATE PAIN Labetalol HCl 300 mg 10/10/24 22:00 10/11/24 07:18 Labetalol Hcl 100 Mg Tablet PO 11/09/24 21:59 300 mg TID COLEEN Administration Ondansetron HCl 4 mg 10/08/24 14:00 Ondansetron Hcl 4 Mg/2 Ml Vial IV 11/07/24 13:59 Q4H PRN PRN NAUSEA/VOMITING Polysaccharide Iron Complex 150 mg 10/09/24 10:00 10/10/24 09:37 Iron Polysaccharides Complex 150 Mg Capsule PO 11/08/24 09:59 150 mg DAILY COLEEN Administration Simethicone 80 mg 10/09/24 10:00 Simethicone 80 Mg Tab.Chew PO 11/08/24 09:59 QID PRN PRN INDIGESTION Witch Jumana 1 pad 10/09/24 10:00 Witch Jumana 1 Pad Med..Pad TP 11/08/24 09:59 PRN PRN ITCHING Zolpidem Tartrate 10 mg 10/09/24 10:00 Zolpidem Tartrate 10 Mg Tablet PO 11/08/24 09:59 HS PRN PRN INSOMNIA Discontinued Medications Generic Name Dose Route Start Last Admin Trade Name Freq PRN Reason Stop Dose Admin Butorphanol Tartrate 1 mg 10/08/24 14:00 Butorphanol Tartrate 2 Mg/Ml Vial IV 11/07/24 13:59 Q4H PRN PRN MODERATE PAIN Butorphanol Tartrate 1 - 2 mg 10/08/24 22:28 10/09/24 04:07 Butorphanol Tartrate 2 Mg/Ml Vial IV 11/07/24 22:24 2 mg Q3H PRN PRN Administration MODERATE PAIN Diphtheria/Tetanus/Acell Pertussis 0.5 ml 10/09/24 10:00 10/10/24 09:38 Tdap --Diph,Pertuss(Acell),Tet Vac/Pf 0.5 Ml Vial IM 10/09/24 10:01 0.5 ml .ONCE ONE Administration Ephedrine Sulfate 10 mg 10/08/24 21:00 Ephedrine Sulfate 50 Mg/Ml IV 11/07/24 20:59 PRN PRN SBP<100 Furosemide 20 mg 10/11/24 02:34 10/11/24 02:36 Furosemide 20 Mg/Vial IV 10/11/24 02:35 20 mg ONCE ONE Administration Hydralazine HCl Confirm 10/10/24 21:56 Hydralazine Hcl 20 Mg/Ml Vial Administered 10/10/24 21:57 Dose 20 mg .ROUTE .STK-MED ONE Hydralazine HCl 10 mg 10/10/24 21:58 10/10/24 21:59 Hydralazine Hcl 20 Mg/Ml Vial IV 10/10/24 21:59 10 mg STAT ONE Administration Hydralazine HCl 5 mg 10/11/24 02:17 10/11/24 02:19 Hydralazine Hcl 20 Mg/Ml Vial IV 10/11/24 02:18 5 mg STAT ONE Administration Oxytocin/Lactated Ringer's 30 units in 500 mls @ 0 mls/hr 10/08/24 07:00 10/09/24 07:22 Pitocin 30 Units/ Lr 500 Ml IV 11/07/24 06:59 2 mls/hr .Q0M COLEEN Administration Protocol Titrate Oxytocin/Lactated Ringer's 30 units in 500 mls @ 5 mls/hr 10/09/24 12:00 Pitocin 30 Units/ Lr 500 Ml IV 11/08/24 11:59 .Q24H COLEEN Lactated Ringer's 1,000 mls @ 125 mls/hr 10/09/24 07:00 10/10/24 06:32 Lactated Ringers IV 11/08/24 06:59 125 mls/hr .Q8H COLEEN Administration Lactated Ringer's 1,000 mls @ 999 mls/hr 10/08/24 21:00 10/09/24 06:20 Lactated Ringers IV 10/08/24 22:00 999 mls/hr .Q1H1M ONE Administration FENTANYL/BUPIVACAINE/NS/PF 250 mls @ 0 mls/hr 10/08/24 21:00 10/09/24 07:03 Fentanyl 2 Mcg-Bupiv 0.125%-Ns 250 Ml Epidur EPIDURAL 11/07/24 20:59 10 mls/hr .Q0M COLEEN Administration Protocol Titrate Magnesium Sulfate 1,000 mls @ 50 mls/hr 10/09/24 11:30 10/10/24 05:21 Magnesium Sulfate 40 Gm/1000 Ml H2o Premix IV 11/08/24 11:29 50 mls/hr .Q20H COLEEN Administration Labetalol HCl 100 mg 10/08/24 23:00 10/10/24 09:37 Labetalol Hcl 100 Mg Tablet PO 11/07/24 22:59 100 mg BID COLEEN Administration Labetalol HCl 20 mg 10/10/24 15:25 10/10/24 20:17 Labetalol Hcl 100 Mg/20 Ml Mdv IV 10/10/24 15:26 40 mg NOW ONE Administration Labetalol HCl 20 mg 10/10/24 15:30 10/10/24 15:36 Labetalol Hcl 20 Mg/4 Ml Disp.Syringe IV 10/10/24 15:31 20 mg NOW ONE Administration Labetalol HCl 200 mg 10/10/24 22:00 Labetalol Hcl 100 Mg Tablet PO 11/09/24 21:59 BID COLEEN Labetalol HCl Confirm 10/10/24 19:02 Labetalol Hcl 100 Mg/20 Ml Mdv Administered 10/10/24 19:03 Dose 100 mg IV .STK-MED ONE Labetalol HCl 80 mg 10/10/24 20:47 10/10/24 21:06 Labetalol Hcl 100 Mg/20 Ml Mdv IV 10/10/24 20:48 80 mg ONCE STA Administration Labetalol HCl Confirm 10/10/24 20:52 Labetalol Hcl 20 Mg/4 Ml Disp.Syringe Administered 10/10/24 20:53 Dose 20 mg IV .STK-MED ONE Labetalol HCl Confirm 10/10/24 21:00 Labetalol Hcl 20 Mg/4 Ml Disp.Syringe Administered 10/10/24 21:01 Dose 20 mg IV .STK-MED ONE Labetalol HCl Confirm 10/10/24 21:04 Labetalol Hcl 20 Mg/4 Ml Disp.Syringe Administered 10/10/24 21:05 Dose 20 mg IV .STK-MED ONE Lidocaine HCl 10 ml 10/09/24 07:00 Lidocaine Hcl 1% 20 Ml Mdv 20 Ml Ml IJ 11/08/24 06:59 PRN PRN PAIN Misoprostol 25 mcg 10/08/24 14:00 10/09/24 03:32 Misoprostol 25 Mcg ("4") Tab INTRAVAGIN 11/07/24 13:59 25 mcg Q4H COLEEN Administration Nalbuphine HCl 5 - 10 mg 10/08/24 14:00 Nalbuphine Hcl 10 Mg/Ml Ampul IV 11/07/24 13:59 Q4H PRN PRN PAIN Nifedipine 30 mg 10/10/24 17:00 10/10/24 17:07 Nifedipine Xl 30 Mg Tablet.Sa PO 10/10/24 17:01 30 mg DAILY ONE Administration Potassium Chloride 20 meq 10/09/24 16:00 10/09/24 23:38 Potassium Chloride Tab 10 Meq Tab PO 11/08/24 15:59 20 meq Q2H COLEEN Administration Assessment/Plan (1) Severe pre-eclampsia affecting childbirth Current Visit: Yes Status: Acute Code(s): O14.14 - SEVERE PRE-ECLAMPSIA COMPLICATING CHILDBIRTH (2) Vaginal delivery Current Visit: Yes Status: Acute Code(s): O80 - ENCOUNTER FOR FULL-TERM UNCOMPLICATED DELIVERY (3) Hypokalemia Current Visit: No Status: Acute Code(s): E87.6 - HYPOKALEMIA
[2024-10-11] MEDS: Klor Con PO SCH (08:09)
[2024-10-11] MEDS: Adalat CC 30 MG TABLET PO SCH (10:00)
[2024-10-11] MEDS: CORTISONE 1% CREAM TP PRN (10:05)
[2024-10-11] MEDS: Dermoplast Spray TP PRN (10:06)
[2024-10-11] MEDS: TUCKS TP PRN (10:06)
[2024-10-11] MEDS: LASIX 20 MG PO SCH (12:00)
[2024-10-12] MEDS ORDERED: PROCARDIA 10 MG ONE (05:57)
[2024-10-12 06:43] VITALS: PULSE 88
[2024-10-12] MEDS: Adalat CC 30 MG TABLET PO SCH (06:55)
[2024-10-12 07:15] LABS: ANION GAP 16.6 MEQ/L (5-15); Calcium 9.3 mg/dL (8.4-10.2); Creatinine 1 0.53 mg/dL (0.52-1.04); EST GLOMERULAR FILTRATION RATE 122.1 ML/MIN; MAGNESIUM 1.6 mg/dL (1.6-2.3); Potassium 3.6 mmol/L (3.5-5.1)
[2024-10-12 07:33] VITALS: BP 123/72; RESP 18; TEMP 97.4; O2SAT 99
--- NOTE | 2024-10-12 10:22 | PCM.NOTE ---
Date and Time: 10/12/24 1019 Subjective Assessment: ppd 3 sp pt resting in bed and doing well. pt ambulating and tolerating diet. has been on labetolol 300mg tid and procardia xl30mg bid and did not have to receive any iv antihypertensive for the last 24 hrs with stable bp. vss afebrile abd; soft uterus; firm lochia; mild a/p sp ppd 3 with preeclampsia with severe features with htn will dc home today will continue labetolol 300mg tid will continue procardia 30mg xl bid advised to take extra strength tylenol for pain management and discontinue nsaids will fu in office this monday for eval of bp Objective Data Vital Signs: Vital Signs - 24 hr Temp Pulse Resp BP BP Pulse Ox 10/12/24 07:20 97.4 F 88 18 123/72 99 10/12/24 06:42 88 20 125/75 98 10/12/24 06:00 100 H 20 142/81 10/12/24 00:38 86 20 138/73 10/11/24 22:07 86 20 138/73 98 10/11/24 21:36 172/80 10/11/24 20:00 146/80 10/11/24 19:57 98.8 F 111 H 18 146/80 98 10/11/24 18:00 90 20 144/63 97 10/11/24 15:00 145/72 10/11/24 13:00 139/79 10/11/24 12:00 158/81 10/11/24 11:38 113 H 96 10/11/24 11:00 153/93 Pain Assessment - Last Documented Pain Intensity [Anterior] 8 Pain Intensity 4 Pain Scale Used 0-10 Pain Scale Intake and Output: Intake & Output 10/09/24 10/10/24 10/11/24 10/12/24 11:59 11:59 11:59 11:59 Intake Total 1850 5521 500 2040 Output Total 300 4400 3225 3200 Balance 1550 1121 -2725 -1160 Weight 91.172 kg Lab Results: Lab Results-Last 24 Hours 10/11/24 10/11/24 10/11/24 Range/Units 12:20 16:11 20:00 Sodium (135-145) mmol/L Potassium 4.0 D 4.1 3.8 (3.5-5.1) mmol/L Chloride (98-107) mmol/L Carbon Dioxide (22-30) mmol/L Anion Gap (5-15) MEQ/L BUN (7-17) mg/dL Creatinine (0.52-1.04) mg/dL Estimated GFR ML/MIN Glucose (74-106) mg/dL Calcium (8.4-10.2) mg/dL Magnesium (1.6-2.3) mg/dL 10/12/24 Range/Units 06:50 Sodium 139 (135-145) mmol/L Potassium 3.6 (3.5-5.1) mmol/L Chloride 105 (98-107) mmol/L Carbon Dioxide 21 L (22-30) mmol/L Anion Gap 16.6 H (5-15) MEQ/L BUN 8 (7-17) mg/dL Creatinine 0.53 (0.52-1.04) mg/dL Estimated GFR 122.1 ML/MIN Glucose 104 (74-106) mg/dL Calcium 9.3 (8.4-10.2) mg/dL Magnesium 1.6 (1.6-2.3) mg/dL Medications: Medications Generic Name Dose Route Start Last Admin Trade Name Freq PRN Reason Stop Dose Admin Acetaminophen 1,000 mg 10/08/24 14:00 10/12/24 06:10 Acetaminophen 500 Mg Tablet PO 11/07/24 13:59 1,000 mg Q4H PRN PRN Administration HEADACHE/MILD PAIN/ FEVER Benzocaine 1 gm 10/09/24 10:00 10/11/24 10:06 Benzocaine/Lanolin/Aloe Vera 85 Gm Can TP 11/08/24 09:59 1 gm UD PRN Administration as needed Bisacodyl 10 mg 10/09/24 10:00 Bisacodyl 10 Mg Supp.Rect [place] 11/08/24 09:59 PRN PRN CONSTIPATION Docusate Sodium 100 mg 10/09/24 22:00 10/12/24 00:35 Docusate Sodium 100 Mg Capsule PO 11/08/24 21:59 Not Given BID COLEEN Emollient Ointment 0 gm 10/09/24 10:00 Lansinoh 40 Gm Tube TOP 11/08/24 09:59 PRN PRN PAIN Hydrocortisone 0.5 gm 10/09/24 10:00 10/11/24 10:05 Hydrocortisone 1% Cream 28 Gm Tube TP 11/08/24 09:59 0.5 gm PRN PRN Administration ITCHING Hydrocortisone Acetate 25 mg 10/09/24 10:00 Hydrocortisone Acetate 25 Mg Supp.Rect [place] 11/08/24 09:59 PRN PRN HEMORRHOIDS Ibuprofen 800 mg 10/09/24 10:00 10/12/24 06:57 Ibuprofen 400 Mg Tablet PO 11/08/24 09:59 800 mg Q6H PRN PRN Administration MODERATE PAIN Labetalol HCl 300 mg 10/10/24 22:00 10/12/24 06:09 Labetalol Hcl 100 Mg Tablet PO 11/09/24 21:59 300 mg TID COLEEN Administration Nifedipine 30 mg 10/12/24 18:00 Nifedipine Xl 30 Mg Tablet.Sa PO 11/11/24 05:59 0600,1800 COLEEN Ondansetron HCl 4 mg 10/08/24 14:00 Ondansetron Hcl 4 Mg/2 Ml Vial IV 11/07/24 13:59 Q4H PRN PRN NAUSEA/VOMITING Polysaccharide Iron Complex 150 mg 10/09/24 10:00 10/11/24 10:00 Iron Polysaccharides Complex 150 Mg Capsule PO 11/08/24 09:59 150 mg DAILY COLEEN Administration Simethicone 80 mg 10/09/24 10:00 Simethicone 80 Mg Tab.Chew PO 11/08/24 09:59 QID PRN PRN INDIGESTION Kathy Denney 1 pad 10/09/24 10:00 10/11/24 10:06 Kathy Denney 1 Pad Med..Pad TP 11/08/24 09:59 1 pad PRN PRN Administration ITCHING Zolpidem Tartrate 10 mg 10/09/24 10:00 Zolpidem Tartrate 10 Mg Tablet PO 11/08/24 09:59 HS PRN PRN INSOMNIA Discontinued Medications Generic Name Dose Route Start Last Admin Trade Name Freq PRN Reason Stop Dose Admin Butorphanol Tartrate 1 mg 10/08/24 14:00 Butorphanol Tartrate 2 Mg/Ml Vial IV 11/07/24 13:59 Q4H PRN PRN MODERATE PAIN Butorphanol Tartrate 1 - 2 mg 10/08/24 22:28 10/09/24 04:07 Butorphanol Tartrate 2 Mg/Ml Vial IV 11/07/24 22:24 2 mg Q3H PRN PRN Administration MODERATE PAIN Diphtheria/Tetanus/Acell Pertussis 0.5 ml 10/09/24 10:00 10/10/24 09:38 Tdap --Diph,Pertuss(Acell),Tet Vac/Pf 0.5 Ml Vial IM 10/09/24 10:01 0.5 ml .ONCE ONE Administration Ephedrine Sulfate 10 mg 10/08/24 21:00 Ephedrine Sulfate 50 Mg/Ml IV 11/07/24 20:59 PRN PRN SBP<100 Furosemide 20 mg 10/11/24 02:34 10/11/24 02:36 Furosemide 20 Mg/Vial IV 10/11/24 02:35 20 mg ONCE ONE Administration Furosemide 20 mg 10/11/24 12:00 10/11/24 12:00 Furosemide 20 Mg Tablet PO 10/11/24 12:01 20 mg 1XONLY COLEEN Administration Hydralazine HCl Confirm 10/10/24 21:56 Hydralazine Hcl 20 Mg/Ml Vial Administered 10/10/24 21:57 Dose 20 mg .ROUTE .STK-MED ONE Hydralazine HCl 10 mg 10/10/24 21:58 10/10/24 21:59 Hydralazine Hcl 20 Mg/Ml Vial IV 10/10/24 21:59 10 mg STAT ONE Administration Hydralazine HCl 5 mg 10/11/24 02:17 10/11/24 02:19 Hydralazine Hcl 20 Mg/Ml Vial IV 10/11/24 02:18 5 mg STAT ONE Administration Oxytocin/Lactated Ringer's 30 units in 500 mls @ 0 mls/hr 10/08/24 07:00 10/09/24 07:22 Pitocin 30 Units/ Lr 500 Ml IV 11/07/24 06:59 2 mls/hr .Q0M COLEEN Administration Protocol Titrate Oxytocin/Lactated Ringer's 30 units in 500 mls @ 5 mls/hr 10/09/24 12:00 Pitocin 30 Units/ Lr 500 Ml IV 11/08/24 11:59 .Q24H COLEEN Lactated Ringer's 1,000 mls @ 125 mls/hr 10/09/24 07:00 10/10/24 06:32 Lactated Ringers IV 11/08/24 06:59 125 mls/hr .Q8H COLEEN Administration Lactated Ringer's 1,000 mls @ 999 mls/hr 10/08/24 21:00 10/09/24 06:20 Lactated Ringers IV 10/08/24 22:00 999 mls/hr .Q1H1M ONE Administration FENTANYL/BUPIVACAINE/NS/PF 250 mls @ 0 mls/hr 10/08/24 21:00 10/09/24 07:03 Fentanyl 2 Mcg-Bupiv 0.125%-Ns 250 Ml Epidur EPIDURAL 11/07/24 20:59 10 mls/hr .Q0M COLEEN Administration Protocol Titrate Magnesium Sulfate 1,000 mls @ 50 mls/hr 10/09/24 11:30 10/10/24 05:21 Magnesium Sulfate 40 Gm/1000 Ml H2o Premix IV 11/08/24 11:29 50 mls/hr .Q20H COLEEN Administration Labetalol HCl 100 mg 10/08/24 23:00 10/10/24 09:37 Labetalol Hcl 100 Mg Tablet PO 11/07/24 22:59 100 mg BID COLEEN Administration Labetalol HCl 20 mg 10/10/24 15:25 10/10/24 20:17 Labetalol Hcl 100 Mg/20 Ml Mdv IV 10/10/24 15:26 40 mg NOW ONE Administration Labetalol HCl 20 mg 10/10/24 15:30 10/10/24 15:36 Labetalol Hcl 20 Mg/4 Ml Disp.Syringe IV 10/10/24 15:31 20 mg NOW ONE Administration Labetalol HCl 200 mg 10/10/24 22:00 Labetalol Hcl 100 Mg Tablet PO 11/09/24 21:59 BID COLEEN Labetalol HCl Confirm 10/10/24 19:02 Labetalol Hcl 100 Mg/20 Ml Mdv Administered 10/10/24 19:03 Dose 100 mg IV .STK-MED ONE Labetalol HCl 80 mg 10/10/24 20:47 10/10/24 21:06 Labetalol Hcl 100 Mg/20 Ml Mdv IV 10/10/24 20:48 80 mg ONCE STA Administration Labetalol HCl Confirm 10/10/24 20:52 Labetalol Hcl 20 Mg/4 Ml Disp.Syringe Administered 10/10/24 20:53 Dose 20 mg IV .STK-MED ONE Labetalol HCl Confirm 10/10/24 21:00 Labetalol Hcl 20 Mg/4 Ml Disp.Syringe Administered 10/10/24 21:01 Dose 20 mg IV .STK-MED ONE Labetalol HCl Confirm 10/10/24 21:04 Labetalol Hcl 20 Mg/4 Ml Disp.Syringe Administered 10/10/24 21:05 Dose 20 mg IV .STK-MED ONE Lidocaine HCl 10 ml 10/09/24 07:00 Lidocaine Hcl 1% 20 Ml Mdv 20 Ml Ml IJ 11/08/24 06:59 PRN PRN PAIN Misoprostol 25 mcg 10/08/24 14:00 10/09/24 03:32 Misoprostol 25 Mcg ("06/29") Tab INTRAVAGIN 11/07/24 13:59 25 mcg Q4H COLEEN Administration Nalbuphine HCl 5 - 10 mg 10/08/24 14:00 Nalbuphine Hcl 10 Mg/Ml Ampul IV 11/07/24 13:59 Q4H PRN PRN PAIN Nifedipine 30 mg 10/10/24 17:00 10/10/24 17:07 Nifedipine Xl 30 Mg Tablet.Sa PO 10/10/24 17:01 30 mg DAILY ONE Administration Nifedipine 30 mg 10/11/24 10:00 10/11/24 18:04 Nifedipine Xl 30 Mg Tablet.Sa PO 11/10/24 09:59 30 mg BID COLEEN Administration Nifedipine 30 mg 10/12/24 06:00 10/12/24 06:55 Nifedipine Xl 30 Mg Tablet.Sa PO 11/11/24 05:59 30 mg BID COLEEN Administration Nifedipine Confirm 10/12/24 05:57 Nifedipine 10 Mg Capsule Administered 10/12/24 05:58 Dose 30 mg .ROUTE .STK-MED ONE Potassium Chloride 20 meq 10/09/24 16:00 10/09/24 23:38 Potassium Chloride Tab 10 Meq Tab PO 11/08/24 15:59 20 meq Q2H COLEEN Administration Potassium Chloride 20 meq 10/11/24 08:00 10/11/24 14:25 Potassium Chloride Tab 10 Meq Tab PO 10/11/24 14:01 20 meq Q2H COLEEN Administration Assessment/Plan (1) Severe pre-eclampsia affecting childbirth Current Visit: Yes Status: Acute Code(s): O14.14 - SEVERE PRE-ECLAMPSIA COMPLICATING CHILDBIRTH (2) Vaginal delivery Current Visit: Yes Status: Acute Code(s): O80 - ENCOUNTER FOR FULL-TERM UNCOMPLICATED DELIVERY (3) Hypokalemia Current Visit: No Status: Acute Code(s): E87.6 - HYPOKALEMIA
--- NOTE | 2024-10-12 10:29 | PCM.DS ---
Discharge Summary Date of Admission: 10/09/24 07:43 Admitting Physician: PATRICIA LI DO Consults: Consults on Case 10/08/24 21:00 Notify Anesthesia Provider PRN 10/09/24 16:19 Navigation ONCE Primary Care Provider: KATHLEEN RHODES Allergies Allergies metformin Allergy (Verified 10/08/24 22:49) paroxetine [From Paxil] Adverse Reaction (Verified 07/29/24 14:00) Hospital Summary - Hospital Course Hospital Course: pt admitted at 37 2/7 wks gestation for induction secondary to gestational htn and noncompliant gestational diabetes on october 08 with vaginal cytotec and delivered live baby girl via on october 09. during labor pt was noted having elevated bp and was started on magnesium and continued for 24 hours after she delivered. pt during period had significant elevations of bp requiring multiple iv doses of labetolol and hydralizine during period through october 11. pt had been started on labetolol orally however increased to 300mg tid with the addition of procardia 30mg xl bid to stablize bp. pt had given on ppd 2 iv lasix and had significant urinary output of 3 1/2 liters. at this time pt seems to be maintaining her bp for the past 24 hrs under 140's over 80's and will be discharged today to continue her regimen and to be seen in the office this monday. she understands not to take nsaid's for pain management for risk of increasing bp and understands to take tylenol for pain management. pt also understands to call me for any issues she may have upon discharge related to elevated bp such as headache, visual disturbanc, ruq pain nausea or vomiting. all questions answered to her satisfaction and at this time stable for discharge. labs reviewed and all stable. pt had a couple of episodes of decreased potassium for which the protocol was implemented and stabilized. - Vitals & Intake/Output Vital Signs: Vital Signs Temperature 97.4 F 10/12/24 07:20 Pulse Rate 88 10/12/24 07:20 Respiratory Rate 18 10/12/24 07:20 Blood Pressure 123/72 10/12/24 07:20 O2 Sat by Pulse Oximetry 99 10/12/24 07:20 Intake & Output: Intake & Output 10/09/24 10/10/24 10/11/24 10/12/24 11:59 11:59 11:59 11:59 Intake Total 1850 5521 500 2040 Output Total 300 4400 3225 3200 Balance 1550 1121 -9976 -1160 Weight 91.172 kg - Lab Result Diagrams: 10/11/24 04:50 10/12/24 06:50 Lab Results-Last 24 Hrs: Lab Results-Last 24 Hours 10/11/24 10/11/24 10/11/24 Range/Units 12:20 16:11 20:00 Sodium (135-145) mmol/L Potassium 4.0 D 4.1 3.8 (3.5-5.1) mmol/L Chloride (98-107) mmol/L Carbon Dioxide (22-30) mmol/L Anion Gap (5-15) MEQ/L BUN (7-17) mg/dL Creatinine (0.52-1.04) mg/dL Estimated GFR ML/MIN Glucose (74-106) mg/dL Calcium (8.4-10.2) mg/dL Magnesium (1.6-2.3) mg/dL 10/12/24 Range/Units 06:50 Sodium 139 (135-145) mmol/L Potassium 3.6 (3.5-5.1) mmol/L Chloride 105 (98-107) mmol/L Carbon Dioxide 21 L (22-30) mmol/L Anion Gap 16.6 H (5-15) MEQ/L BUN 8 (7-17) mg/dL Creatinine 0.53 (0.52-1.04) mg/dL Estimated GFR 122.1 ML/MIN Glucose 104 (74-106) mg/dL Calcium 9.3 (8.4-10.2) mg/dL Magnesium 1.6 (1.6-2.3) mg/dL Micro Results-Entire Visit: Microbiology 10/09/24 11:00 Urine Culture - Final Catherized NO GROWTH 10/08/24 15:21 Urine Culture - Final Clean Catch Midstream MIXED KATHY; 3 OR MORE TYPES. NO PREDOMINANT ORGANISM. NO FURTHER WORKUP. PLEASE RESUBMIT IF CLINICALLY INDICATED. - Procedures and Test Procedures and Tests throughout Hospitalization: Therapy Orders & Screens 10/08/24 16:01 Smoking Cessation Education ONCE Comment: Diagnosis: IUP Smoking Status: Current every day smoker How long have you smoked: 20 Have you smoked in the past 12 months: Yes Approximately how many cigarettes per day: vapes Do you dip or chew tobacco: No If,Former Smoker,when did you quit: 5 years ago Final Diagnosis/Problem List - Final Discharge Diagnosis/Problem (1) Severe pre-eclampsia affecting childbirth Current Visit: Yes Status: Acute Code(s): O14.14 - SEVERE PRE-ECLAMPSIA COMPLICATING CHILDBIRTH (2) Vaginal delivery Current Visit: Yes Status: Acute Code(s): O80 - ENCOUNTER FOR FULL-TERM UNCOMPLICATED DELIVERY (3) Hypokalemia Current Visit: No Status: Acute Code(s): E87.6 - HYPOKALEMIA - Discharge Disposition: Home, Self-Care Condition: Stable Prescriptions: No Action Pnv No.95/Ferrous Fum/Folic AC [ Caplet] 1 cap PO DAILY Ferrous Sulfate [Iron] 325 mg PO DAILY Aspirin [Ecotrin] 1 tab PO DAILY Labetalol HCl 100 mg [Trandate 100 MG] 100 mg PO BID Follow up with: KATHLEEN RHODES [Primary Care Provider, INTERNAL MEDICINE] PATRICIA LI DO [ACTIVE STAFF, OBSTETRICS-GYNECOLOGY] - 10/16/24 2:00 pm
[2024-10-12] MEDS ORDERED: Adalat CC 30 MG TABLET PO SCH (18:00)
== END 2024-10-12 13:45 | disposition home or self-care (01) | DRG 806 ==
LOC: OB 14:33 → OBSVTOIN 10-09 07:43 → OB 10-09 07:43
PROVIDERS: ADMIT Obstetrics & Gynecology; ATTEND Obstetrics & Gynecology
PROC: 10E0XZZ Delivery of Products of Conception, External Approach (ICD-10-PCS; principal; 2024-10-09)
DX: O14.14 Severe pre-eclampsia complicating childbirth (principal); Z59.811 Housing instability, housed, with risk of homelessness; Z37.0 Single live birth; O24.429 Gestational diabetes mellitus in childbirth, unspecified control; O69.81X0 Labor and delivery complicated by cord around neck, without compression, not applicable or unspecified; Z3A.37 37 weeks gestation of pregnancy; E87.6 Hypokalemia
CPT/HCPCS: 36415; 80048; 80053; 80307; 81001; 83735; 84132; 85025; 85610; 85730; 86592; 86850; 86900; 86901; 87086; 90715; 96372; G0378; G0379; J0360; J0595; J1938; J2590; A9270-GY